=== PATIENT | male | born 1955 | race Caucasian/White ===

== ENCOUNTER 2023-06-28 07:51 | Outpatient (CLI) | payer OTHER, SELFPAY ==
--- NOTE | 2023-06-29 06:38 | WPDPFTINT ---
PFT Procedure Performed PFT Procedure Performed Plethysmography (Lung Vol) Diffusing Cap (DLCO) Flow Vol Loop Spirometry w/o Bronchodil PFT Interpretation This is a pulmonary function test with spirometry, plethysmography and diffusing capacity. The test was performed and results interpreted in accordance with the 2019 and 2005 ATS/ERS Task Force guidelines respectively using the Global Lung Function Initiative-2012 reference equations. Patient demonstrated good effort and cooperation. Reproducibility criteria were met. The quality of the spirometry maneuver was Grade A. Findings: Spirometry: The contour the inspiratory and expiratory flow tracing are normal. The FVC is 4.00 L, 106% predicted. The FEV1 is 2.92 L, 101% predicted. The FEV1: FVC ratio 73%. Plethysmography: The total lung capacity is 6.08 L, 97% predicted. The functional residual capacity is 2.59 L, 80% predicted. The residual volume is 1.85 L, 84% predicted. Diffusing capacity: The diffusing capacity unadjusted for hemoglobin and carboxyhemoglobin is 19.6, 79% predicted. The diffusing capacity adjusted for alveolar volume is 3.76, 89% predicted. Impression: The spirometry is normal without evidence of an obstructive abnormality. The lung volumes are normal. The diffusing capacity is normal. There are no prior studies for comparison
== END 2023-06-28 07:52 | disposition home or self-care (01) ==
LOC: ANHPFT 07:52
PROVIDERS: PCP Internal Medicine; Visit Provider Internal Medicine
DX: J44.9 Chronic obstructive pulmonary disease, unspecified (principal)
CPT/HCPCS: 94060; 94375; 94726; 94729

== ENCOUNTER 2024-05-21 12:32 | Outpatient (CLI) | payer OTHER, SELFPAY ==
--- NOTE | ~2024-05-21 | US_ITS ---
EXAMINATION: US renal BI DATE: 05/21/2024 13:45 INDICATION: Chronic kidney disease stage IIIB. TECHNIQUE: Multiple ultrasound grayscale images of the kidneys were obtained. COMPARISON: None. FINDINGS: The right kidney measures 10.9 x 4.8 x 5.0 cm. The left kidney measures 11.1 x 6.1 x 5.3 cm. The kidn eys demonstrate normal parenchymal echogenicity. There are cysts in the kidneys measuring up to 1.8 c m on the right. There is no hydronephrosis. The bladder is normal. The prostate is moderately enlarge d. IMPRESSION: 1. Normal kidney sizes. No hydronephrosis. Reviewed, dictated and finalized at location A.
== END 2024-05-21 12:33 | disposition home or self-care (01) ==
LOC: ANHIMG 12:36
PROVIDERS: PCP Internal Medicine
DX: N18.32 Chronic kidney disease, stage 3b (principal)
CPT/HCPCS: 76775

== ENCOUNTER 2024-11-24 00:04 | Day surgery (SDC) | payer OTHER, SELFPAY ==
[2024-11-13 14:51] VITALS: BMI 29.8
--- NOTE | 2024-11-18 12:22 | PC.NURSE ---
Patient's , Sandra, called with some questions about Sami's colonoscopy for tomorrow. States he has a pacemaker/defibrilator that wasn't marked on chart. Sent CRMD form over to Dr. Manjit Schroeder. Called the office and they said they should be able to get that back to us today. Also spoke with anesthesia about pt's EF & health history. Okay to proceed. Called patient and made them aware that we are good to go for tomorrow.
--- OUTSIDE RECORDS SUMMARY | 2024-11-24 00:07 | XMS_ITS | Data Portability ---
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 Role Phone DEBORAH MOBLEY Primary Care Provider [phone] Assessment Encounter Date Assessment Date Assessment LastModified by Organization Details LastModified Time 10/26/2022 10/26/2022 Blood pressure u p a little bit has not taking his medication blood work been ordered 2 week follow-up eat better take medications medications as prescribed stress test if chest pain recurs ER [email or web address] Not available 10/26/2022 17:08:11 06/12/2023 06/12/2023 Blood work Target for A1c LDL blood pressure discussed Regular exercise Stay up-to-date on immunization Consult notes reviewed diagnosis assessment plan discussed. Follow-up in 4 month Heart catheterization nonobstructive disease Not available 06/15/2023 16:23:36 Plan of Treatment Reminders Order Date Submit Date Provider Last Modified By Organization Details Last Modified Time Details Appointments Procedure 15 2024 09:30A M Jossue Spann MD Not available Not available Not available Post-Op 15 2024 09:30A M LENARD Moreno Not available Not available Not available Lab PSA, total, serum or plasma 2022 023 [email or web address] [facility] (Lab), [address] [place], [address], 05/07/2024 18:37:49 CBC w/ auto diff 2022 023 [email or web address] [facility] (Lab), [address] [place], [address], 05/07/2024 18:37:49 lipid panel, serum [address] (Lab), [address] [place], [address], 05/07/2024 18:37:49 CMP, serum or plasma [address] (Lab), [address] [place], [address], 05/07/2024 18:37:49 glycohemo globin, total, blood [address] (Lab), [address] [place], [address], 05/07/2024 18:37:48 glycohemo globin, total, blood 2022 023 [facility] (Lab), [address] [place], [address], 10/30/2022 12:30:36 CMP, serum or plasma 2022 023 [facility] (Lab), [address] [place], [address], 10/30/2022 12:30:36 lipid panel, serum 2022 023 [facility] (Lab), [address] [place], [address], 10/30/2022 12:30:36 CBC w/ auto diff 2022 023 [facility] (Lab), [address] [place], [address], 10/30/2022 12:30:36 Referral None recorded. Procedures cerumen removal (PROC) 2024 025 [facility] (One Call Scheduling), [address] [place], [address], 11/19/2024 05:32:31 cerumen removal (PROC) 2023 024 [email or web address] [facility] (One Call Scheduling), [address] [place], [address], 02/17/2024 11:58:39 lexiscan cardiolit e stress test (PROC) - approved [id number] 10/26/2022 -2022 023 [facility] (One Call Scheduling), [address] [place], [address], 12/19/2022 09:12:03 Surgeries septoplas ty (SURG) 2024 025 [email or web address] Not available 10/23/2024 09:30:02 Imaging PFT, complete 2022 023 [facility] (Cardiology & Emg), [address], [place], [address], 06/29/2023 07:43:36 XR, chest, 2 view 2022 023 [facility] (One Call Scheduling), [address] [place], [address], 11/01/2022 09:47:37 electroca rdiogram 2022 023 [facility] [address] [facility], [address], [place], [address], 10/26/2022 14:28:32 Medication Orders azelastin e 137 mcg (0.1 %) nasal spray 2023 024 [id number], [address] , [place], [place], [id number], 10/08/2023 14:29:14 Patient TargetsNo targets recorded. Patient InstructionsNo instructions recorded. Reason for Referral None Reported. Results Created Date Observation Date Name Description Value Unit Range Abnormal Flag Note LastModifiedBy Organization Detail LastModifiedTime 10/27/19 [facility] rocky diogr am No observ ation record ed. cyahl [facility] Internal Med [facility] [address] [facility] [address], [place], [address], 10/26/2022 12:35:01 10/27/19 23 10/26/2022 elect [facility] dio am No observ ation record ed. BARCODE [facility] Internal Med [facility] [address] [facility] [address], [place], [address], 10/26/2022 15:18:43 11/02/19 23 11/01/2022 XR, chest , 2 view [facility] [address] [facility] [place] [address] Patien t Name: LETICIA LEWIS L Access ion #: [id number] Sex: M : 1954 8 Locati on: RAD Attend ing Physic antonia: PAT MOBLEY Orderi Physic antonia: PAT MOBLEY Exam Date: 023 7:17 AM Exam Name: XR CHEST 2V Admitt ing Diagno sis(es ): RADIOL OGY REPORT - FINAL EXAM: XR CHEST 2V HISTOR Y: CHEST PAIN 67-yea r-old male with chest pain, former smoker . COMPAR ANABEL: Chest x-ray dated 2020. TECHNI QUE: 2 views of the chest were perfor med. FINDIN GS: No pneumo thorax , pulmon arti edema, or consol idativ e infilt rates. The heart is mildly enlarg ed. No fractu res are identi fied about the bony thorax . There is mild to modera te thorac ic degene rative disc diseas e. IMPRES RENAY: Cardio megaly withou t eviden ce of acute intrat horaci c proces s. Page 1 of 2 [facility] Patiparth t Name: LETICIA LEWIS Access ion #: [id number] Sex: M : 1954 8 Exam Date: 7:17 AM Exam Name: XR CHEST 2V Admitt ing Diagno sis(es ): Create d and electr onical ly signed by: Victor M hamilton MD Signed Date: 8:45 AM (CT) Dictat ed by: Victor M hamilton MD DD: 8:45 AM (CT) DT: 8:45 AM (CT) Page [address] (Imaging) [address] [place], [address], 06/01/2023 21:50:35 11/22/19 23 11/21/2022 deshawn can cardi olite stres s test (PROC ) [facility] [address] [place] [address] [phone] Patiparth t Name: LETICIA LEWIS Access ion #: [id number] Sex: M : 1954 5 Locati on: RAD Attend ing Physic antonia: PAT MOBLEY Orderi Physic antonia: PAT MOBLEY Exam Date: 11/22/19 23 7:12 AM Exam Name: NM MYOCAR D SPECT MULT Admitt ing Diagno sis(es ): RADIOL OGY REPORT - FINAL EXAM: NM MYOCAR D SPECT MULT HISTOR Y: CHEST PAIN diabet es COMPAR ANABEL: None. TECHNI QUE: REST STUDY: 10.0 mCi of Techne tium 99m-Te trofos min. Lexisc an STUDY: 25.0 mCi of Techne tium 99m-Te trofos min. The patien t was stress ed pharma cologi ravindra utiliz ing 0.4 mg Lexisc an. Cardia c-gate d tomogr aphic images of the heart were obtain ed in the short and long axis projec tions. Images were obtain ed at rest and carolinei tala follow ing admini strati on of Lexisc an. Lexisc an and rest images were perfor med on the same day. Page 1 of 2 [facility] Patien t Name: LETICIA LEWIS L Access ion #: [id number] Sex: M : 1954 5 Exam Date: 11/22/19 7:12 AM Exam Name: NM MYOCAR D SPECT MULT Admitt ing Diagno sis(es ): FINDIN GS: There is a nontra nsmura l periph eral perfus ion defect infero latera l aspect of the left ventri niles on the Lexisc an images . The rest images are within normal limits . Wall motion is normal . Left ventri cular ejecti on fracti on is 60%. IMPRES RENAY: 1. Artifa ct versus nontra nsmura l Lexisc an induce d ischem ia of the inferi or segmen t of the left ventri niles. 2. This report will be faxed and teleph oned to Dr. Itz edgar. 1143 hours, 2022. Create d and electr onical ly signed by: Rob green MD Signed Date: 11/22/19 11:44 AM (CT) Dictat ed by: Rob green MD (CT) (CT) Page 2 of 2 [facility] (Imaging) [address] [place], [address], 12/19/2022 09:12:03 06/29/2006/28/2023 PFT, compl ete No observ ation record ed. [facility] [address] [facility] [address], [place], [address], 07/24/2023 11:45:11 07/01/2006/28/2023 PFT, compl ete No observ ation record ed. [email or web address] [facility] [address], [place], [address], 07/24/2023 11:45:11 07/03/2007/03/2023 US, echoc ardio gram No observ ation record ed. cyahl [facility] [address], [place], [address], 07/15/2023 14:50:50 07/29/2006/28/2023 PFT, compl ete No observ ation record ed. [facility] [address] [address], [place], [address], 08/24/2023 10:56:48 Result Notes None recorded. Problems Name Problem SNOMED Code Status Onset Date Resolution Date Notes Provider Name and Address Organization Details Recorded Time Chest pain 51312774 Active 2022 Not Available [employer] 3 08:18:36 Thallium stress test abnormal 425888155 Active 2022 Not Available [facility] 3 08:18:36 Impacted cerumen of bilateral ears 39018068695 75490 Active 2023 Jossue Spann MD [address] [facility], [place] [address], [place], [address] , [employer] 4 14:28:45 Allergic rhinitis 86127017 Active 2023 Jossue Spann MD [address] [facility], [facility] [address], [place], [address] , [employer] 4 14:28:55 Deviated nasal septum 539066899 Active 2024 LENARD Moreno [address] [facility], [facility] [address], [place], [address] , [employer] 5 11:15:49 Tobacco user 946811859 Active Not Available [facility] 3 08:18:36 Chronic obstructi ve pulmonary disease 18778159 Active Not Available [facility] 3 08:18:36 Respirato ry symptom 397518946 Active Not Available [facility] 3 08:18:36 On examinati on - hoarsenes s Completed Not Available [facility] 3 04:50:23 Prostate specific antigen outside reference range 861879022 Active Not Available [facility] 3 08:18:36 Blood glucose outside reference range 713592511 Active Not Available [facility] 3 08:18:36 Malaise and fatigue 141681936 Completed Not Available [facility] 3 04:50:23 Chest pain 96876244 Completed LEIGHANN [place] [facility] 3 12:35:41 Type 2 diabetes mellitus without complicat ion 410663846 Active 2021 Not Available [facility] 3 08:18:36 Dyslipide alexis 652520735 Active Not Available [facility] 3 08:18:36 Hypokalem ia 57555119 Completed Not Available [facility] 3 04:50:24 Anxiety 81022865 Active 2019 Not Available [facility] 3 08:18:36 Cough 15606574 Completed Not Available [facility] 3 04:50:24 Hoarse 27003827 Completed Not Available [facility] 3 04:50:24 Essential hypertens ion 13179179 Active Not Available [facility] 3 08:18:36 Snoring 55217877 Active Not Available [facility] 3 08:18:36 Sleep apnea 92969927 Active Not Available [facility] 3 08:18:36 Problem Notes None recorded. Procedures Surgical History Date Name Laterality Status Provider Name and Address Organization Details Recorded Time Vasectomy completed Not Available [facility] 0 10/17/2022 04:42:01 Imaging Results Imaging Date Name Status LastModified by Organization Details LastModified Time 10/26/2022 electrocardiogram completed [facility] Internal [facility] [address] [facility], [place], [address], 10/26/2022 12:35:01 10/26/2022 electrocardiogram completed [facility] Internal Med [address] [facility], [place], [address], 10/26/2022 15:18:43 11/01/2022 XR, chest, [address] (Imaging) [address] [place], [address], 06/01/2023 21:50:35 11/21/2022 lexiscan cardiolite stress test (PROC) completed [facility] (Imaging) [address] [place], [address], 12/19/2022 09:12:03 06/28/2023 PFT, complete completed [facility], [place], [address], 07/24/2023 11:45:11 06/28/2023 PFT, [facility] [facility] [address], [place], [address], 07/24/2023 11:45:11 07/03/2023 US, echocardiogram completed [facility] [address], [place], [address], 07/15/2023 14:50:50 06/28/2023 PFT, complete completed [place] [address] [facility] [address], [address], 08/24/2023 10:56:48 Procedure Notes None recorded. Medical Equipment None Reported. Allergies No known drug allergies Medications Name Sig Start Date Stop Date Status Note LastModified by Organization Details LastModified Time fluoxetin e 40 mg capsule TAKE 1 CAPSULE BY MOUTH EVERY DAY active Not Available Not Available No t Available amoxicill in 500 mg capsule TAKE ONE CAPSULE BY MOUTH THREE TIMES DAILY UNTIL ALL TAKEN 10/22 completed Not Available Not Available Not Available metformin 500 mg tablet TAKE 1 TABLET BY MOUTH EVERY DAY 10/22 completed Not Available Not Available Not Available clonidine HCl 0.1 mg tablet TAKE 1 TABLET BY MOUTH TWICE DAILY active Not Available Not Available No t Available ofloxacin 0.3 % eye drops 09/20 completed Not Available Not Available Not Available prednison e 20 mg tablet TAKE 2 TABLETS BY MOUTH EVERY DAY FOR 5 DAYS 10/22 completed Not Available Not Available Not Available Diflucan 150 mg tablet Take 1 tablet every day by oral route for 7 days. active Not Available Not Available No t Available acetamino phen 300 mg-codein e 30 mg tablet TAKE 1 TABLET BY MOUTH EVERY 6 HOURS NEEDED FOR PAIN active Not Available Not Available No t Available chlorthal idone 25 mg tablet TAKE 1 TABLET BY MOUTH DAILY active Not Available Not Available No t Available amoxicill in 500 mg tablet TAKE 1 TABLET BY MOUTH THREE TIMES DAILY UNTIL GONE 10/22 completed Not Available Not Available Not Available ketorolac 0.5 % eye drops 09/20 completed Not Available Not Available Not Available cefadroxi l 500 mg capsule TK 1 C PO BID 10/24 completed Not Available Not Available Not Available amiloride 5 mg tablet TAKE 1 TABLET BY MOUTH EVERY DAY active Not Available Not Available No t Available potassium chloride ER 20 mEq tablet,ex tended release(p art/cryst ) TAKE 1 TABLET BY MOUTH TWICE DAILY 10/22 completed Not Available Not Available Not Available prednisol one acetate 1 % eye drops,naga pension 09/20 completed Not Available Not Available Not Available Diflucan 100 mg tablet Take 1 tablet every day by oral route. active Not Available Not Available No t Available tamsulosi n 0.4 mg capsule active NOT CURRENTL Y TAKING MD HASN'T REFILLED Not Available Not Available Not Available fluoxetin e 20 mg tablet Take 1 tablet every day by oral route. 05/20 completed Not Available Not Available Not Available losartan 25 mg tablet TAKE 1 TABLET BY MOUTH EVERY DAY 06/12 completed Not Available Not Available Not Available Advair Diskus 250 mcg-50 mcg/dose powder for inhalatio n INHALE 1 PUFF BY MOUTH TWICE DAILY 08/17 completed Not Available Not Available Not Available azelastin e 137 mcg (0.1 %) nasal spray USE 2 SPRAYS IN EACH NOSTRIL TWICE DAILY active Not Available Not Available No t Available Aspir-81 mg tablet,de layed release Take 1 tablet every day by oral route. 2019 active Not Available Not Available Not Avai lable albuterol sulfate HFA 90 mcg/actua tion aerosol inhaler INHALE 2 PUFFS BY MOUTH EVERY 4 HOURS active Not Available Not Available No t Available fluticaso ne propionat e 50 mcg/actua tion nasal spray,naga pension SHAKE LIQUID AND USE 2 SPRAYS IN EACH NOSTRIL EVERY DAY active Not Available Not Available No t Available finasteri de 5 mg tablet TK 1 T PO D 07/11 completed Not Available Not Available Not Available amoxicill in 875 mg-potass ium clavulana te 125 mg tablet TAKE 1 TABLET BY MOUTH TWICE DAILY UNTIL ALL TAKEN 10/22 completed Not Available Not Available Not Available amlodipin e 10 mg-benaze pril 20 mg capsule TAKE 1 CAPSULE BY MOUTH EVERY DAY 06/12 completed Not Available Not Available Not Available OraMagicR x mouthwash 15mL by mouth, swish for 1 minute then spit every 4-6 hours for 7 days 10/27 completed Not Available Not Available Not Available moxifloxa shaka 0.5 % eye drops 09/20 completed Not Available Not Available Not Available rosuvasta tin 20 mg tablet TAKE 1 TABLET BY MOUTH DAILY active Not Available Not Available No t Available amlodipin e 10 mg-atorva statin 20 mg tablet Take 1 tablet every day by oral route. active Not Available Not Available No t Available Spiriva with [employer] r 18 mcg and inhalatio n capsules INHALE ONE CAPSULE BY MOUTH VIA HANDIHAL ER EVERY DAY 08/17 completed Not Available Not Available Not Available PreserVis ion AREDS 2017 active Not Available Not Available Not Avai lable BD Ultra-Fin e Short Pen Needle 31 gauge x 5/16 USE TO INJECT OZEMPIC WEEKLY DIRECTED 07/18 completed Not Available Not Available Not Available Symbicort 80 mcg-4.5 mcg/actua tion HFA aerosol inhaler INHALE 2 PUFFS BY MOUTH TWICE DAILY-PL EASE CALL FOR APPOINTM ENT 09/23 completed Not Available Not Available Not Available Veramyst 27.5 mcg/actua tion nasal spray,naga pension 06/22 completed Not Available Not Available Not Available amlodipin e 5 mg-olmesa rtan 40 mg tablet TAKE 1 TABLET BY MOUTH EVERY DAY active Not Available Not Available No t Available Durezol 0.05 % eye drops 09/20 completed Not Available Not Available Not Available Dulera 100 mcg-5 mcg/actua tion HFA aerosol inhaler INHALE 2 PUFFS BY MOUTH TWICE DAILY active Not Available Not Available No t Available OneTouch Verio test strips USE 1 STRIP TO TEST BLOOD SUGAR DAILY active Not Available Not Available No t Available dapaglifl ozin propanedi ol 10 mg tablet TAKE 1 TABLET BY MOUTH 1 TIME EACH DAY IN THE MORNING active Not Available Not Available No t Available potassium chloride ER 20 mEq tablet,ex tended release TAKE 1 TABLET BY MOUTH TWICE DAILY 10/22 completed Not Available Not Available Not Available Trulicity 0.75 mg/0.5 mL subcutane ous pen injector Inject 0.75 mg every week by subcutan eous route. 07/11 completed Not Available Not Available Not Available ProAir RespiClic k 90 mcg/actua tion breath activated Inhale 2 puffs every 4 hours by inhalati on route as needed. 09/23 completed Not Available Not Available Not Available Trelegy Ellipta 100 mcg-62.5 mcg-25 mcg powder for inhalatio n INHALE 1 PUFF BY MOUTH EVERY DAY active Not Available Not Available No t Available Ozempic 0.25 mg or 0.5 mg (2 mg/1.5 mL) subcutane ous pen injector inject 0.25mg under the skin weekly for 4wks then 0.5mg weekly active Not Available Not Available No t Available OneTouch Delica Plus Lancet 33 gauge USE TO TEST BLOOD GLUCOSE TWICE DAILY 07/18 completed Not Available Not Available Not Available OneTouch Verio Reflect Meter TEST TWICE DAILY active Not Available Not Available No t Available Vitals Date Recorded Body height Body mass index (BMI) Body weight Body temperature Heart rate Systolic blood pressure Diastolic blood pressure Provider Name and Address Organization Details Last Updated DateTime 3 162.56 cm 32.4 kg/m2 31573.9 6 g 97.5 [degF] 78 /min 160 mm[Hg] 98 mm[Hg] Shae Valderrama Ana Cristina [facility] [employer] [facility] 3 12:07:16 Date Recorded Body height Body mass index (BMI) Body weight Body temperature Heart rate Systolic blood pressure Diastolic blood pressure Provider Name and Address Organization Details Last Updated DateTime 3 162.56 cm 30.2 kg/m2 61149.2 6 g 98.7 [degF] 68 /min 120 mm[Hg] 82 mm[Hg] LEIGHANN Ventura [facility] [employer] [facility] 3 11:45:07 Date Recorded Body height Body mass index (BMI) Body weight Body temperature Provider Name and Address Organization Details Last Updated DateTime 10/08/2023 162.56 cm 29.7 kg/m2 07254.2 g 97.7 [degF] Evita Ji RN [facility] [employer] [facility] 10/08/2023 14:05:54 Date Recorded Body height Body mass index (BMI) Body weight Body temperature Body height Body mass index (BMI) Body weight Body temperature Provider Name and Address Organization Details Last Updated DateTime 5 162.56 cm 29.7 kg/m2 35855.4 8 g 97.5 [degF] 162.56 cm 29.7 kg/m2 44065.4 8 g 97.5 [degF] Evita Ji RN [facility] [employer] [facility] 5 12:27:54 Social History Question Answer Notes LastModified by Organization Details LastModified Time Tobacco Smoking Status Former Smoker quit 2013 ELSI Beaulieu [facility] [employer] [facility] 10/08/2023 13:58:09 Do You Have An Advance Directive? No [id number] Information not available 10/17/2022 What Is Your Level Of Alcohol Consumption? Occasional [id number] Information not available 10/17/2022 Are You Blind Or Do You Have Difficulty Seeing? No Information not available 10/08/2023 What Is Your Level Of Caffeine Consumption? Heavy [id number] Information not available 10/17/2022 How Much Tobacco Do You Chew? None [id number] Information not available 10/17/2022 In The 14 Days Before Symptom Onset, Have You Had Close Contact With A Laboratory-confi rmed COVID-19 While That Case Was Ill? No Information not available 10/08/2023 In The 14 Days Before Symptom Onset, Have You Had Close Contact With A Person Who Is Under Investigation For COVID-19 While That Person Was Ill? No Information not available 10/08/2023 Are You Deaf Or Do You Have Serious Difficulty Hearing? No Information not available 10/08/2023 What Type Of Diet Are You Following? [id number] [id number] Information not available 10/17/2022 Which Illicit Or Recreational Drugs Have You Used? None Information not available 10/08/2023 Do You Or Have You Ever Used E-cigarettes Or Vape? Never Used Electronic Cigarettes Information not available 10/08/2023 What Is The Highest Grade Or Level Of School You Have Completed Or The Highest Degree You Have Received? 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 No Information not available 10/08/2023 What Is The Fluoride Status Of Your Home? Unknown Information not available 10/08/2023 When Did You Quit Smoking? 6-10yearssincelastc igarette Information not available 10/08/2023 Are There Any Guns Present In Your Home? No Information not available 10/08/2023 Do You Use Insect Repellent Routinely? No Information not available 10/08/2023 Where Do You Live? 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 No Information not available 10/08/2023 What Was The Date Of Your Most Recent Tobacco Screening? 06/12/2023 Information not available 10/08/2023 Have You Ever Been Counseled For Unhealthy Alcohol Use? No Information not available 10/08/2023 Do You Have Any Pets? Yes Information not available 10/08/2023 What Is Your Relationship Status? [id number] Information not available 10/17/2022 Do You Use Your Seat Belt Or Car Seat Routinely? Yes Information not available 10/08/2023 Do You Have Smoke And Carbon Monoxide Detectors In Your Home? Yes Information not available 10/08/2023 At What Age Did You Start Smoking Tobacco? 27 Information not available 10/08/2023 Are You Passively Exposed To Smoke? No Information not available 10/08/2023 Do You Or Have You Ever Used Smokeless Tobacco? Never Used Smokeless Tobacco [id number] Information not available 10/17/2022 Are There Any Smokers In Your House? No Information not available 10/08/2023 How Much Tobacco Do You Smoke? No Was 1ppw [id number] Information not available 10/17/2022 What Types Of Sporting Activities Do You Participate In? None Information not available 10/08/2023 Do You Feel Stressed (tense, Restless, Nervous, Or Anxious, Or Unable To Sleep At Night)? [id number] Information not available 10/08/2023 Do You Use Any Illicit Or Recreational Drugs? No Information not available 10/08/2023 Do You Use Sunscreen Routinely? No Information not available 10/08/2023 Has Tobacco Cessation Counseling Been Provided? No Information not available 10/08/2023 Have You Recently Traveled Abroad? No Information not available 10/08/2023 Do You Have Any Dietary Restrictions? No Information not available 10/08/2023 Do You Or Have You Ever Used Any Other Forms Of Tobacco Or Nicotine? No Information not available 10/08/2023 Sex: Male Functional Status Question Answer Note LastModified by Organizat ion Details LastModified Time Do you have difficulty walking or climbing stairs? Yes due to COPD Information not available 10/08/2023 Do you have transportation difficulties? No Information not available 10/08/2023 Are you able to walk? YESWOREST Information not available 10/08/2023 Do you have difficulty doing errands alone? No Information not available 10/08/2023 Are you able to care for yourself? Yes Information n ot available 10/08/2023 Do you have difficulty dressing or bathing? No Information not available 10/08/2023 What is your exercise level? None [id number] Information not available 10/17/2022 Mental Status Question Answer Note LastModified by Organization D etails LastModified Time Do you have difficulty concentrating, remembering or making decisions? Yes Information no t available 10/08/2023 Family History Relationship Description Onset Age of this Age Resolved Age Notes LastModified by Organization Details LastModified Time Mother History of respiratory disease [id number] Not available 10/17/2022 04:42:02 Father Malignant tumor of lung [id number] Not available 10/17/2022 04:42:02 Notes:YOUNGER BROTHER WAS ES SENTIALLY DEAF Medical History Condition Response NERVE DISEASE N BLINDNESS N RHEUMATIC FEVER N KIDNEY STONES N BLADDER PROBLEMS N MRSA N OTHER # 1 Y POLIO N LUNG DISEASE/DISORDER N HISTORY OF DRUG ABUSE N RADIATION / CHEMOTHERAPY N COPD Y Other # 2 N BLOOD DISEASES N EAR OR HEARING PROBLEMS N MUMPS N SHINGLES N BOWEL PROBLEMS N DEPRESSION (INCLUDING POST ) N STROKE/TIA N ULCERS N BENIGN PROSTATIC HYPERPLASIA N MEASLES N MYOCARDIAL INFARCTION N OBESITY N GERD/NAUSEA N ANEURYSM N URINARY/BLADDER/KIDNEY PROBLEMS N CORONARY ARTERY DISEASE (CAD) N ADDICTION CONCERNS N Impotence N ENDOMETRIOSIS N USE OF BLOOD THINNERS N SKIN PROBLEMS N GASTROINTESTINAL DISORDER N PARATHYROID DISEASE N PERIPHERAL VASCULAR DISEASE N MUSCLE,JOINT OR BONE PROBLEMS N GASTROINTESTINAL BLEEDING N BLOOD CLOTS N ASTHMA Y CATARACTS N ERECTILE DYSFUNCTION N VARICOSITIES N GI PROBLEMS N CHF N Low Testosterone N INFERTILITY N AIDS/HIV N CHEMOTHERAPY / RADIATION N LIVER DISEASE N MALE HYPOGONADISM N HYPERTENSION Y Deficiency N TOURETTE'S N ANXIETY DISORDER Y BLOOD TRANSFUSION N ANEMIA/BLOOD DISORDER N CHRONIC EAR INFECTIONS N BRONCHITIS N TUBERCULOSIS N GLAUCOMA N FOOT PROBLEM N DIVERTICULITIS N SLEEP APNEA Y CHICKENPOX N ALLERGIES/HAYFEVER N INFECTIOUS DISEASE N PROSTATE Y HEART ARRHYTHMIA N INSOMNIA N HIGH CHOLESTEROL / HYPERLIPIDEMIA Y EYE PROBLEMS N HYPERTHYROIDISM N EDEMA N CHRONIC PAIN SYNDROME N HYPOTHYROIDISM N CONSTIPATION N CAROTID BLOCKAGE N BACK / NECK PROBLEMS N HAVE YOU BEEN HOSPITALIZED OR SEEN IN [facility] IN THE PAST YEAR ? N ATHEROSCLEROSIS N BREAST PROBLEMS N DIALYSIS N ECZEMA N HISTORY WITH COMPLICATIONS WITH ANESTHES IA ? N OSTEOPOROSIS N ARTHRITIS N APPENDICITIS N DIABETES, TYPE N BAD TEETH N ENT N HEARTBURN / REFLUX N AUTISM SPECTRUM DISORDER (ASD) N HEPATITIS / LIVER DISEASE N GOUT N SLEEP DISORDER N ALZHEIMER'S DISEASE N Brain Problems N DEMENTIA N HERPES N SEIZURES/EPILEPSY N HEADACHES/MIGRAINES N VASCULAR DISEASE N PACEMAKER N Blood Disorder N DIZZINESS N HEART DISEASE/HEART PROBLEMS N KIDNEY DISEASE N MULTIPLE SCLEROSIS N CANCER: SPECIFY N CARDIAC ARRHYTHMIA N ANESTHESIA COMPLICATIONS N ATRIAL FIBRILLATION N Gall Stones N PULMONARY EMBOLISM N AUTOIMMUNE DISEASE N Immunizations Vaccine Type Date Status Note Provider Nam e and Address Organization Details Recorded Time Influenza, split virus, trivalent, preservative 3 completed Not Available [facility] 01/17/2023 08:18:36 Influenza, split virus, trivalent, preservative 3 completed Not Available [facility] 01/17/2023 08:18:36 Influenza, high-dose, quadrivalent, PF 2 completed Not Available [facility] 01/17/2023 08:18:36 Influenza, high-dose, quadrivalent, PF 0 completed Not Available [facility] 01/17/2023 08:18:36 Influenza, high-dose, trivalent, PF 9 completed Not Available [facility] 01/17/2023 08:18:36 Influenza, split virus, quadrivalent, PF 8 completed Not Available [facility] 01/17/2023 08:18:36 Influenza, split virus, quadrivalent, PF 6 completed Not Available [facility] 01/17/2023 08:18:36 Influenza, split virus, quadrivalent, PF 8 completed Not Available [facility] 01/17/2023 08:18:36 Influenza, split virus, quadrivalent, PF 5 completed Not Available [facility] 01/17/2023 08:18:36 Influenza, split virus, trivalent, preservative 4 completed Not Available [facility] 01/17/2023 08:18:36 Influenza, high-dose, quadrivalent, PF 3 completed Deborah Mobley MD [address] [place] [address], [place] [address], [place], [address], [place] [facility] 06/15/2023 16:24:17 Past Encounters Encounter ID Performer Location Encounter Start Date Encounter Closed Date Diagnosis/Indication Diagnosis SNOMED-CT Code Diagnosis ICD10 Code Diagnosis Note [id number] [facility] [address] [address] 12/30/2020 00:00:00 01/01/2021 09:26:30 [id number] [facility] [address] [place] [address] [address] [address] 05/05/2021 00:00:00 05/06/2021 11:41:52 [id number] _ATHENA_M IGRATION_ DEFAULT_1 _1 , 08/16/2021 00:00:00 08/16/2021 10:31:32 [id number] _ATHENA_M IGRATION_ DEFAULT_1 _1 , 08/30/2021 00:00:00 08/30/2021 10:20:11 [id number] [facility] Internal Med [facility] [address] [place] [address] [place] [address] 10/27/2021 00:00:00 11/12/2021 22:07:07 [id number] [facility] [address] [place] [address] [address] [address] 04/25/2022 00:00:00 05/27/2022 18:06:16 [id number] [facility] [address] [place] [address] [address] [address] 07/11/2022 00:00:00 07/12/2022 13:15:59 [id number] [facility] [address] [place] [address] [place] [address] 07/18/2022 00:00:00 08/05/2022 16:26:55 [id number] [facility] [address] [place] [address] [address] [address] 08/01/2022 00:00:00 08/05/2022 12:09:53 [id number] Deborah Mobley MD [facility] Internal [facility] [place] [address] [place] [address] 10/26/2022 11:46:33 10/26/2022 13:08:36 Essential hypertension 26635703 I10 Chest pain 12033732 R07. 9 Type 2 jaydon betes mellitus without complication 371032413 E11.9 Anxiety 04487203 F41.9 Dyslipidemia 977281271 E 78.5 [id number] Deborah Mobley MD [facility] [place] [address] [place] [address] 06/12/2023 11:21:26 06/12/2023 12:25:33 Type 2 diabetes mellitus without complication 087053759 E11.9 Essential hypertension 00325805 I10 Screening for malignant neoplasm of prostate 570870543 Z12.5 Chronic ob structive pulmonary disease 39919510 J44.9 Administra tion of influenza vaccine 11590504 Z23 [id number] Jossue Spann MD [facility] [place] [address] [place] [address] 10/08/2023 13:56:19 10/08/2023 16:13:18 Impacted cerumen of bilateral ears [id number] 810755 H61.23 Allergic rhinitis 807729 04 J30.9 [id number] LENARD Moreno [facility] [place] [address] [place] [address] 10/22/2024 10:44:03 10/22/2024 11:18:48 Deviated nasal septum 072975727 J34.[address] Spann for a septoplast y consultati on Impacted c erumen of bilateral ears [id number] 993480 H61.23 cerumen impaction successful ly removed with irrigation [id number] Jossue Spann MD [facility] [place] [address] [place] [address] 10/22/2024 12:08:18 10/23/2024 08:55:00 Deviated nasal septum 119109803 J34.2 Health Concerns Section Related Observation LastModified by Organization Detai ls LastModified Time None Recorded Concern Status LastModified by Organization Details LastModified Time None Recorded Advance Directives Directive N: Payers Encounter Date Sequence Insurance Name Policy Number Policy Walton Covered Member ID Walton Member ID Guarantor Name 10/26/2022 1 [employer] 680 Sami L Borror [id number] Sami L Borror 06/12/2023 1 [employer] 680 Sami L Borror [id number] Sami L Borror 10/08/2023 1 [employer] 680 Sami L Borror [id number] Sami L Borror 10/22/2024 1 [employer] 680 Sami L Borror [id number] Sami L Borror 10/22/2024 1 [employer] 680 Sami L Borror [id number] Sami L Borror Notes Date Note Type Note Provider Name and Address Organization Details Recorded Time 10/26/2022 text/html 1. Hypertension no headache no dizziness2. Been under lot of stress in family3. Diabetes needs A1c diet been poor4. Chest pain left-sided 1-2 minutes been going on for 3 weeks with no change in character intensity or frequency5. Dyslipidemia diet has been poor Deborah Mobley MD [address], [place], [place], [address], [facility] [facility] 10/26/2022 17:08:33 06/12/2023 text/html COPD stable need s PFTs. Hypertension no headache no dizziness diabetes no polyphagia no polydipsia dyslipidemia does try to follow a low-fat Deborah Mobley MD [address], [address], [place], [address], [facility] 06/15/2023 16:24:20 10/08/2023 text/html Cerumen and nasa l congestion Jossue Spann MD [address], [address], [place], [address], [facility] 10/08/2023 14:29:42 10/22/2024 text/html This patient has a past medical history significant for type 2 diabetes, dyslipidemia, COPD, anxiety, HTN, allergic rhinitis, sleep apnea, and cerumen impaction who presents to the office for a 1 year follow-up for cerumen removal. Reports approximately 1 month ago he developed difficulty hearing from his left ear. Denies use of any [id number] ear wax removal kit. Denies any otalgia. He also reports a history with a deviated septum at his last visit with Dr. Spann. He reports difficulty breathing out of his left nostril. This has been present for many years. He states that with his COPD history it is becoming increasingly difficult to be able to blow his nose and breathe properly through his nasal passages. He is interested in discussing a septoplasty. LENARD Moreno [address], [place] [address], [place], [address], [employer] [facility] [employer] 10/22/2024 11:16:59 10/22/2024 text/html this patient was found to have septal deviation which interferes with his sleep and daily breathing Jossue Spann MD [address], [place], [address], [employer] 10/22/2024 12:59:19
--- OUTSIDE RECORDS SUMMARY | 2024-11-24 00:07 | XMS_ITS | CONTINUITY OF CARE DOCUMENT ---
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 Name Role Phone Abdiaziz Arias MD Unavailable DEBORAH KIRK MD Unavailable [phone] DEBORAH KIRK MD Unavailable PROBLEMS Condition Status Date Provider Notes Cardiology examination active Abdiaziz Arias MD COPD active Abdiaziz Arias MD HTN essential active Abdiaziz Arias MD Diabetes mellitus active Abdiaziz Arias MD Hyperlipidemia active Abdiaziz Arias MD Abnormal stress test active Abdiaziz Arias MD Chest pain active Abdiaziz Arias MD Shortness of breath active Abdiaziz Arias MD SLEEP APNEA active Abdiaziz Arias MD HFpEF active Abdiaziz Arias MD ENCOUNTERS Date Type Provider Location Encounter Diag nosis - In-person encounter Office Visit Abdiaziz Arias MD [facility] HFpEF - In-person encounter Office Visit Abdiaziz Arias MD [facility] - In-person encounter Office Visit Abdiaziz Arias MD [facility] - In-person encounter Office Visit Abdiaziz Arias MD [facility] - In-person encounter Office Visit Abdiaziz Arias MD [facility] Shortness of breathSLEEP APNEA - In-person encounter Office Visit Abdiaziz Arias MD [facility] - In-person encounter Office Visit Abdiaziz Arias MD [facility] Cardiology examinationCOPDHTN essentialDiabetes mellitusHyperlipidemiaAbnormal stress testChest pain VITAL SIGNS Date Observation Value Provider Body Mass Index (Ratio) 29.37 kg/m2 Homero Arias MD blood pressure, diastolic 95 mm[Hg] Anita [place] [facility] blood pressure, systolic 150 mm[Hg] Jessica [facility]oya [facility] saturation, oximetry 95 % Phuong jackie pulse rate 72 /min Phuong [facility] blood pressure, cuff size regular Anita washington [facility] weight E&M 182 [lb_av] Phuong [facility] height E&M 66 [in_i] Phuong [facility] Body Mass Index (Ratio) 29.08 kg/m2 Homero Arias MD blood pressure, diastolic 90 mm[Hg] Li [facility] blood pressure, systolic 148 mm[Hg] Ebony [facility] blood pressure, cuff size regular Hussain bitmaurizio Jordan blood pressure, diastolic 90 mm[Hg] Ta bitha Jordan blood pressure, systolic 148 mm[Hg] Tab itha Julian oxygen saturation, oximetry 98 % Lizbeth Jordan pulse rate 82 /min Lizbeth Jordan weight E&M 180.2 [lb_av] Lizbeth Jordan respiratory rate E&M 12 /min Lizbeth Jordan height E&M 66 [in_i] Lizbeth Julian Body Mass Index (Ratio) 28.08 kg/m2 Homero Arias MD blood pressure, cuff size regular Ja rret blood pressure, diastolic 90 mm[Hg] Ja rret blood pressure, systolic 144 mm[Hg] [facility] pulse rate 71 /min Ignacio oxygen saturation, oximetry 96 % respiratory rate E&M 16 /min weight E&M 174 [lb_av] Ignacio height E&M 66 [in_i] Ignacio y Body Mass Index (Ratio) 28.24 kg/m2 Homero Arias MD blood pressure, cuff size regular Ja rr blood pressure, diastolic 93 mm[Hg] Ja rr blood pressure, systolic 148 mm[Hg] [facility] pulse rate 73 /min Ignacio oxygen saturation, oximetry 96 % Ignacio respiratory rate E&M 12 /min Ignacio weight E&M 175 [lb_av] Ignacio height E&M 66 [in_i] Ignacio y Body Mass Index (Ratio) 29.53 kg/m2 Homero Arias MD blood pressure, cuff size regular Ja rr blood pressure, diastolic 91 mm[Hg] Ja rret blood pressure, systolic 161 mm[Hg] [facility] ret pulse rate 71 /min Ignacio y oxygen saturation, oximetry 96 % Ignacio respiratory rate E&M 12 /min Ignacio weight E&M 183 [lb_av] Ignacio y height E&M 66 [in_i] Ignacio y Body Mass Index (Ratio) 30.99 kg/m2 Homero Arias MD blood pressure, diastolic 97 mm[Hg] [facility] blood pressure, systolic 161 mm[Hg] Sta amanda [facility] oxygen saturation, oximetry 98 % Caridad Amador pulse rate 71 /min Caridadamanda Amador respiratory rate E&M 18 /min Caridad silver weight E&M 192 [lb_av] Caridad Amador height E&M 66 [in_i] Caridad Amador Body Mass Index (Ratio) 30.18 kg/m2 Homero Arias MD blood pressure, diastolic 102 mm[Hg] [facility] ac[facility] blood pressure, systolic 163 mm[Hg] Sta amanda Am[facility] oxygen saturation, oximetry 96 % Caridad Amador respiratory rate E&M 18 /min Caridad D adrianne pulse rate 84 /min Caridad Amador height E&M 66 [in_i] Caridadamanda Amador weight E&M 187 [lb_av] Caridad Amador ALLERGIES No Known Drug Allergies RESULTS Date Observation Value Provider Reference Range Interpretation Location NT-pro BNP 133 Link[facility] <125 [place] [facility] [address] [facility] [place] [address] Nicola Guillermo MD prothrombin time (patient) 10.8 s [facility] 9.0-11.5 Normal international normalized ratio (INR) 1.0 [facility] Normal basophils as percent of blood leukocytes 0.9 % [facility] Normal eosinophils as percent of blood leukocytes 6.6 % [facility] Normal monocyte count, blood 11.5 % [facility] Normal lymphocyte count, blood 13.2 % [facility] Normal neutrophils as percent of blood leukocytes 67.8 % [facility] Normal basophils, absolute, manual 73 cells/mcL [facility] 0-200 Normal eosinophils, absolute, manual 535 cells/mcL [facility] 15-500 High monocytes, absolute, manual 932 cells/mcL [facility] 200-950 Normal lymphocytes, absolute 1069 CELLS/UL Link[facility] 850-3900 Normal Absolute Neutrophil count 5492 cells/mcL [facility] 5580-3581 Normal mean platelet volume 9.3 fL [facility] 7.5-12.5 Normal platelet count 280 THOUSAND/UL [facility] 140-400 Normal red blood cell distribution width 14.2 % [facility] 11.0-15.0 Normal mean corpuscular hemoglobin concentration, RBC 33.5 G/DL [facility] 32.0-36.0 Normal mean corpuscular hemoglobin, RBC 28.8 pg [facility] 27.0-33.0 Normal mean corpuscular volume, RBC 85.9 fL [facility] 80.0-100.0 Normal hematocrit, blood 44.5 % [facility] 38.5-50.0 Normal hemoglobin electrophoresis, blood 14.9 [facility] 13.2-17.1 Normal erythrocyte (RBC) count 5.18 MILLION/UL [facility] 4.20-5.80 Normal leukocyte (white blood cells) count, blood 8.1 THOUSAND/UL [facility] 3.8-10.8 Normal calcium, serum 8.9 mg/dL [facility] 8.6-10.3 Normal carbon dioxide, venous blood 31 mmol/L [facility] 20-32 Normal chloride, serum 101 mmol/L [facility] 98-110 Normal potassium, serum 3.4 mmol/L [facility] 3.5-5.3 Low sodium, serum 142 mmol/L [facility] 135-146 Normal urea nitrogen/creatin ine ratio, serum NOT APPLICABLE (calc) [facility] 6-22 creatinine, serum 1.06 mg/dL [facility] 0.70-1.35 Normal urea nitrogen, blood 17 mg/dL [facility] 7-25 Normal blood glucose, random 152 mg/dL [facility] 65-99 High cholesterol, non-HDL, total 132 MG/DL (CALC) LinkLogic <130 High cholesterol/HDL ratio, serum, percent 3.8 (calc) [facility]ic <5.0 Normal LDL cholesterol, serum 93 MG/DL (CALC) [facility] Normal triglyceride, serum, fasting 273 mg/dL [facility]ic <150 High HDL cholesterol, serum 47 mg/dL [facility] > OR = 40 Normal cholesterol, serum 179 mg/dL [facility] <200 Normal HISTORY OF MEDICATION USE Medication Status Instructions Dates Provider Indications Com ments amiloride 5 mg tablet active TAKE 1 TABLET BY MOUTH EVERY DAY Cece Whittaker RN amiloride 5 mg tablet completed Take 1 tablet by mouth once a day - Cece Whittaker RN amlodipine-olmesar pizarro 5-40 mg tablet active TAKE 1 TABLET BY MOUTH EVERY DAY Adrienne Franco chlorthalidone 25 mg tablet active TAKE 1 TABLET BY MOUTH DAILY ret rosuvastatin 20 mg tablet active TAKE 1 TABLET BY MOUTH DAILY Caridad Amador clonidine HCl 0.1 mg tablet active TAKE 1 TABLET BY MOUTH TWICE DAILY Caridad Amador amlodipine-benazep ril 10-20 mg capsule completed TAKE 1 CAPSULE BY MOUTH EVERY DAY - Abdiaziz Arias MD albuterol sulfate 90 mcg/actuation HFA aerosol inhaler active INHALE 2 PUFFS BY MOUTH EVERY 4 HOURS NEEDED Caridad Amador fluticasone propionate 50 mcg/actuation spray,suspension active SHAKE LIQUID AND USE 2 SPRAYS IN EACH NOSTRIL EVERY DAY Caridad Amador potassium chloride 20 mEq tablet,ER particles/crystals active TAKE 1 TABLET BY MOUTH TWICE DAILY Caridad Amador losartan 25 mg tablet completed TAKE 1 TABLET BY MOUTH EVERY DAY - Abdiaziz Arias MD metformin 500 mg tablet active TAKE 1 TABLET BY MOUTH EVERY DAY Caridad Amador fluoxetine 40 mg capsule active TAKE 1 CAPSULE BY MOUTH EVERY DAY Caridad Amador OneTouch Verio test strips strip active TEST TWICE DAILY DIRECTED Caridad Amador Trelegy Ellipta 100-62.5-25 mcg blister with device active INHALE 1 PUFF BY MOUTH EVERY DAY Caridad Amador SOCIAL HISTORY Date Observation Value Provider drug use no Abdiaziz Arias MD alcohol use no Abdiaziz Arias MD smoking, year quit 2013 Abdiaziz wilson MD cigarette use yes Abdiaziz Martinez smoking status Former smoker Abdiaziz Arias MD drug use no Abdiaziz Arias MD alcohol use no Abdiaziz Arisa MD smoking, year quit 2013 Abdiaziz wilson MD cigarette use yes Abdiaziz Martinez smoking status Former smoker Abdiaziz Arias MD drug use no Abdiaziz Arias MD alcohol use no Abdiaziz Arias MD smoking, year quit 2013 Abdiaziz wilson MD cigarette use yes Abdiaziz Arias M D smoking status Former smoker Abdiaziz Arias MD drug use no Cece Ventimig fady [facility] alcohol use no Cece Ventimig fady [facility] smoking status Former smoker Ceceyanique Galvan miglia [facility] social history reviewed E&M revi ewed - no changes required Abdiaziz Arias MD smoking status Former smoker Abdiaziz Arias MD social history reviewed E&M revi ewed - no changes required Abdiaziz Arias MD social history E&M Patient is a former smoker. Quit 2013 Smoking History: Ethel alanis is a former smoker. Abdiaziz Arias MD smoking, year quit 2013 Caridad Ventura is cigarette use yes Caridad Amador social history E&M Smoking History: Ethel alanis is a former smoker. Quit 2013 Abdiaziz Arias MD social history reviewed E&M revi ewed - no changes required Abdiaziz Arias MD smoking, year quit 2013 Caridad Ventura is cigarette use yes Caridad Amador smoking status Former smoker Caridad Amador INSURANCE PROVIDERS Payer name Policy type / Coverage type [employer] party ID [employer] Include Fitness insurance [employer] [id number] ADVANCE DIRECTIVES Name Date DISCUSSED - NO DECISION MADE TREATMENT PLAN Date Name Performer [id number],C, H is updated medication list for this problem includes: Amlodipine-olmesartan 5-40 Mg Tablet (Amlodipine-olmesartan) ..... Take 1 tablet by mouth every day Metformin 500 Mg Tablet (Metformin) ..... Take 1 tablet by mouth every day [facility] [id number],C,T he patient is using CPAP on a regular basis. The patient has been benefiting from therapy and should continue use. [facility] [id number],C, H is updated medication list for this problem includes: Rosuvastatin 20 Mg Tablet (Rosuvastatin) ..... Take 1 tablet by mouth daily [facility] [id number],C,c ontinues to persist m ay be r/t asthma P FT planned for next week w ill do echo to look for any LV dysfunction, diastolic dysfunction or valvular abnormalities w ill also do pBNP H is updated medication list for this problem includes: Amiloride 5 Mg Tablet (Amiloride) ..... Take 1 tablet by mouth once a day Amlodipine-olmesartan 5-40 Mg Tablet (Amlodipine-olmesartan) ..... Take 1 tablet by mouth every day Chlorthalidone 25 Mg Tablet (Chlorthalidone) ..... Take 1 tablet by mouth daily Cece Sanders [facility] [id number],C,B P elevated again today R eports well controlled at PCP visit last week H ave asked him to monitor at home G oal BP <130/80 W ill return in 3 mos or sooner if needed. Cece Sanders [facility] [id number],C,P atient does not feel like his CPAP is working correctly, will give him Dr. Smith's phone number Abdiaziz Arias MD [id number],C, B P today: 161/91 P rior BP: 161/97 (02/21/2023) Labs Reviewed: C reat: 1.06 (12/28/2022) C hol: 179 (12/28/2022) HDL: 47 (12/28/2022) LDL: 93 MG/DL (CALC) (12/28/2022) T (12/28/2022) Abdiaziz Arias MD [id number],C,Patient feels SOB Abdiaziz Arias MD [id number],B, Abdiaziz Arias MD [id number],C, B P today: 161/97 P rior BP: 163/102 (12/06/2022) Labs Reviewed: C reat: 1.06 (12/28/2022) C hol: 179 (12/28/2022) HDL: 47 (12/28/2022) LDL: 93 MG/DL (CALC) (12/28/2022) T (12/28/2022) The following medications were removed from the medication list: Losartan 25 Mg Tablet (Losartan) ..... Take 1 tablet by mouth every day Amlodipine-benazepril 10-20 Mg Capsule (Amlodipine-benazepril) ..... Take 1 capsule by mouth every day His updated medication list for this problem includes: Amlodipine-olmesartan 5-40 Mg Tablet (Amlodipine-olmesartan) ..... Take 1 tablet by mouth every day Chlorthalidone 25 Mg Tablet (Chlorthalidone) ..... Take 1 tablet by mouth daily Clonidine Hcl 0.1 Mg Tablet (Clonidine hcl) ..... Take 1 tablet by mouth twice daily Abdiaziz Arias MD [id number],C,a s in hpi h as minimal disease and should conitnue statin Abdiaziz Arias MD [id number],S, H is updated medication list for this problem includes: Albuterol Sulfate 90 Mcg/actuation Hfa Aerosol Inhaler (Albuterol sulfate) ..... Inhale 2 puffs by mouth every 4 hours as needed Trelegy Ellipta 100-62.5-25 Mcg Blister With Device ([id number]-bqjkwgpl) ..... Inhale 1 puff by mouth every day Abdiaziz Arias MD [id number],C, B P today: 163/102 His updated medication list for this problem includes: Clonidine Hcl 0.1 Mg Tablet (Clonidine hcl) ..... Take 1 tablet by mouth twice daily Amlodipine-benazepril 10-20 Mg Capsule (Amlodipine-benazepril) ..... Take 1 capsule by mouth every day Losartan 25 Mg Tablet (Losartan) ..... Take 1 tablet by mouth every day Abdiaziz Arias MD [id number],S, Abdiaziz Arias MD [id number],C,Have recommen ded a cardiac cath Abdiaziz Arias MD Cardiology:needs bet ter control e ncouraged home monitoring His updated medication list for this problem includes: Amlodipine-olmesartan 5-40 Mg Tablet (Amlodipine-olmesartan) ..... Take 1 tablet by mouth every day Amiloride 5 Mg Tablet (Amiloride) ..... Take 1 tablet by mouth every day Chlorthalidone 25 Mg Tablet (Chlorthalidone) ..... Take 1 tablet by mouth daily Clonidine Hcl 0.1 Mg Tablet (Clonidine hcl) ..... Take 1 tablet by mouth twice daily BP today: 150/95 P rior BP: 148/90 (04/13/2024) Labs Reviewed: C reat: 1.06 (12/28/2022) Chol: 179 (12/28/2022) HDL: 47 (12/28/2022) LDL: 93 MG/DL (CALC) (12/28/2022) T (12/28/2022) Abdiaziz Arias MD Cardiology:Compensat ed B P control r epeat echo Abdiaziz Arias MD Cardiology:SOB has b een rather chronic for him M ultifactorial, likely in part due to HFpEF D iscussed lifestyle changes E cho 07/03/2023 unremarkable W ill continue following with echos Abdiaziz Arias MD Cardiology:per PCP Abdiaziz Arias MD Cardiology: H is updated medication list for this problem includes: Rosuvastatin 20 Mg Tablet (Rosuvastatin) ..... Take 1 tablet by mouth daily Abdiaziz Arias MD Cardiology: H is updated medication list for this problem includes: Chlorthalidone 25 Mg Tablet (Chlorthalidone) ..... Take 1 tablet by mouth daily Amlodipine-olmesartan 5-40 Mg Tablet (Amlodipine-olmesartan) ..... Take 1 tablet by mouth every day Amiloride 5 Mg Tablet (Amiloride) ..... Take 1 tablet by mouth once a day Clonidine Hcl 0.1 Mg Tablet (Clonidine hcl) ..... Take 1 tablet by mouth twice daily Abdiaziz Arias MD Cardiology:Echo 06/19 unremarkable W ill continue following echo as his sob has worsened Abdiaziz Arias MD Cardiology: H is updated medication list for this problem includes: Rosuvastatin 20 Mg Tablet (Rosuvastatin) ..... Take 1 tablet by mouth daily Abdiaziz Arias MD Cardiology:resolved with use of inhalers Abdiaziz Arias MD Cardiology Abdiaziz Arias MD Cardiology:continue use of inhal ers as needed Abdiaziz Arias MD Cardiology: H is updated medication list for this problem includes: Amlodipine-olmesartan 5-40 Mg Tablet (Amlodipine-olmesartan) ..... Take 1 tablet by mouth every day Amiloride 5 Mg Tablet (Amiloride) ..... Take 1 tablet by mouth once a day Chlorthalidone 25 Mg Tablet (Chlorthalidone) ..... Take 1 tablet by mouth daily Clonidine Hcl 0.1 Mg Tablet (Clonidine hcl) ..... Take 1 tablet by mouth twice daily BP today: 144/90 P rior BP: 148/93 (06/20/2023) Labs Reviewed: C reat: 1.06 (12/28/2022) C hol: 179 (12/28/2022) HDL: 47 (12/28/2022) LDL: 93 MG/DL (CALC) (12/28/2022) T (12/28/2022) Abdiaziz Arias MD Cardiology: H is updated medication list for this problem includes: Amlodipine-olmesartan 5-40 Mg Tablet (Amlodipine-olmesartan) ..... Take 1 tablet by mouth every day Metformin 500 Mg Tablet (Metformin) ..... Take 1 tablet by mouth every day Ceceyanique Sanders [facility] Cardiology:The patie nt is using CPAP on a regular basis. The patient has been benefiting from therapy and should continue use. Ceceyanique Sanders [facility] Cardiology: H is updated medication list for this problem includes: Rosuvastatin 20 Mg Tablet (Rosuvastatin) ..... Take 1 tablet by mouth daily Cece Sanders [facility] Cardiology:continues to persist m ay be r/t asthma P FT planned for next week w ill do echo to look for any LV dysfunction, diastolic dysfunction or valvular abnormalities w ill also do pBNP H is updated medication list for this problem includes: Amiloride 5 Mg Tablet (Amiloride) ..... Take 1 tablet by mouth once a day Amlodipine-olmesartan 5-40 Mg Tablet (Amlodipine-olmesartan) ..... Take 1 tablet by mouth every day Chlorthalidone 25 Mg Tablet (Chlorthalidone) ..... Take 1 tablet by mouth daily Cece Marilyn [facility] Cardiology:BP elevat ed again today R eports well controlled at PCP visit last week H ave asked him to monitor at home G oal BP <130/80 W ill return in 3 mos or sooner if needed. Cece Sanders [facility] Cardiology:Patient d oes not feel like his CPAP is working correctly, will give him Dr. Smith's phone number Abdiaziz Arias MD Cardiology: B P today: 161/91 P rior BP: 161/97 (02/21/2023) Labs Reviewed: C reat: 1.06 (12/28/2022) C hol: 179 (12/28/2022) HDL: 47 (12/28/2022) LDL: 93 MG/DL (CALC) (12/28/2022) T (12/28/2022) Abdiaziz Arias MD Cardiology:Patient feels SOB Jewel Arias MD Cardiology Abdiaziz Arias MD Cardiology: B P today: 161/97 P rior BP: 163/102 (12/06/2022) Labs Reviewed: C reat: 1.06 (12/28/2022) C hol: 179 (12/28/2022) HDL: 47 (12/28/2022) LDL: 93 MG/DL (CALC) (12/28/2022) T (12/28/2022) The following medications were removed from the medication list: Losartan 25 Mg Tablet (Losartan) ..... Take 1 tablet by mouth every day Amlodipine-benazepril 10-20 Mg Capsule (Amlodipine-benazepril) ..... Take 1 capsule by mouth every day His updated medication list for this problem includes: Amlodipine-olmesartan 5-40 Mg Tablet (Amlodipine-olmesartan) ..... Take 1 tablet by mouth every day Chlorthalidone 25 Mg Tablet (Chlorthalidone) ..... Take 1 tablet by mouth daily Clonidine Hcl 0.1 Mg Tablet (Clonidine hcl) ..... Take 1 tablet by mouth twice daily Abdiaziz Arias MD Cardiology:as in hpi h as minimal disease and should conitnue statin Abdiaziz Arias MD Cardiology: H is updated medication list for this problem includes: Albuterol Sulfate 90 Mcg/actuation Hfa Aerosol Inhaler (Albuterol sulfate) ..... Inhale 2 puffs by mouth every 4 hours as needed Trelegy Ellipta 100-62.5-25 Mcg Blister With Device (Ufkdhhksybu-ipqqarqts-mpqwshaz) ..... Inhale 1 puff by mouth every day Abdiaziz Arias MD Cardiology: B P today: 163/102 His updated medication list for this problem includes: Clonidine Hcl 0.1 Mg Tablet (Clonidine hcl) ..... Take 1 tablet by mouth twice daily Amlodipine-benazepril 10-20 Mg Capsule (Amlodipine-benazepril) ..... Take 1 capsule by mouth every day Losartan 25 Mg Tablet (Losartan) ..... Take 1 tablet by mouth every day Abdiaziz Arias MD Cardiology Abdiaziz Arias MD Cardiology:Have recommended a ca rdiac cath Abdiaziz Arias MD Date Name Complete Echo Complete Echo PROBNP, N TERMINAL Complete Echo Ambulatory BP PROTHROMBIN TIME WIT H INR LIPID PANEL CBC (INCLUDES DIFF/P LT) BASIC METABOLIC PANE L W/EGFR Preop clearance, phn /internet/emr >5min HISTORY OF PROCEDURES Procedure Date Procedure Name Provider Procedure Notes S tatus Complex e/m visit add on Abdiaziz Arias MD completed Complex e/m visit add on Abdiaziz Arias MD completed EKG Abdiaziz Arias MD completed EKG Abdiaziz Arias MD completed
--- OUTSIDE RECORDS SUMMARY | 2024-11-24 00:07 | XMS_ITS | Clinical Summary ---
Author Organization [employer] [facility] [employer] [facility] Address [address] [address] Phone Care Team Providers Care Welder Explosion Name Role Phone Spencer Mobley MD Primary Care Provider [phone] Allergies No known active allergies Medications albuterol HFA (PROVENTIL HFA;VENTOLIN HFA) 108 (90 Base) MCG/ACT inhaler Inhale 2 puffs every 4 (four) hours if needed Active aMILoride (MIDAMOR) 5 MG tablet Take 1 tablet by mouth 1 (one) time each day Active aspirin (ST NELLY) 81 MG EC tablet Take 1 tablet every day by oral route. 0 Active fluticasone (FLONASE) 50 MCG/ACT nasal spray SHAKE LIQUID AND USE 2 SPRAYS IN EACH NOSTRIL EVERY DAY Active metFORMIN (GLUCOPHAGE) 500 MG tablet Take 1 tablet by mouth 1 (one) time each day Active Multiple Vitamins-Minera ls (PRESERVISION AREDS PO) 2 (two) times a day 8 Active rosuvastatin (CRESTOR) 20 MG tablet Take 1 tablet by mouth 1 (one) time each day Active Fluticasone-Ume clidin-Vilant (Trelegy Ellipta) 100-62.5-25 MCG/ACT aerosol powder Inhale 1 puff 1 (one) time each day Active FLUoxetine (PROzac) 40 MG capsule Take 40 mg by mouth 1 (one) time each day Active AZELASTINE HCL NA Administer into affected nostril(s) 2 (two) times a day Active amLODIPine-olme sartan (CLAUDETTE) 5-40 MG per tablet Take 1 tablet by mouth 1 (one) time each day Active cloNIDine (CATAPRES) 0.1 MG tablet Take 0.5 tablets (0.05 mg total) by mouth 1 (one) time each day 4 Active tamsulosin (FLOMAX) 0.4 MG 24 hr capsule TAKE 1 CAPSULE(0.4 MG) BY MOUTH 1 TIME EACH DAY 90 capsule 4 Active Dapagliflozin Propanediol (Farxiga) 10 MG tablet Take 10 mg by mouth 1 (one) time each day in the morning 30 tablet 5 5 Active Dapagliflozin Propanediol (Farxiga) 10 MG tablet Take 10 mg by mouth 1 (one) time each day in the morning 30 tablet 5 4 11/10/19 25 Discontin ued(Reord er (does not appear on AVS)) Active Problems Problem Noted Date Diagnosed Date Chronic obstructive pulmonary disease 02/03/2024 Dyslipidemia 02/03/2024 Essential hypertension 02/03/2024 Hypokalemia 02/03/2024 Tobacco user 02/03/2024 Sleep apnea 02/03/2024 Type 2 diabetes mellitus without complication Anxiety 03/13/2020 Chronic kidney disease stage 3B Diabetes mellitus without me ntion of complication, type II or unspecified type, not stated as uncontrolled Encounters Date Type Department Care Team Description 11/09/2024 Refill [facility], [place] [phone] Abby Anthony CMA 09/25/2024 Refill [facility], [address] [phone] Abby Anthony CMA from Last 3 Months Family History Medical History Relation Comments Heart disease Brother Hypertension Brother Cancer Father Heart disease Father Hyperlipidemia Father Hypertension Father Stroke Father Cancer Sister Relation Status Comments Brother Father Mother Sister Social History Tobacco Use Types Packs/Day Years Used Date Smoking Tobacco: Former Cigarettes Tobacco Cessation:Counseling Given: Not Answered Alcohol Use Standard Drinks/Week Comments Not Currently 0 (1 standard drink = 0.6 oz pur e alcohol) Sex and Gender Information Value Date Recorded Sex Assigned at Not on file Legal Sex Male 1:16 PM EDT Gender Identity Not on file Sexual Orientation Not on file Last Filed Vital Signs Vital Sign Reading Time Taken Comments Blood Pressure 122/80 04/30/2024 12:53 PM CDT Pulse 76 04/30/2024 12:53 PM CDT Temperature 36.7 C (98.1 F) 04/30/2024 12:53 PM CDT Respiratory Rate 18 04/30/2024 12:53 PM CDT Oxygen Saturation 98% 04/30/2024 12:53 PM CDT Inhaled Oxygen Concentration - - Weight 80.7 kg (178 lb) 04/30/2024 12:53 PM CDT Height 167.6 cm (5' 6 ) 04/30/2024 12:53 PM CDT Body Mass Index 28.73 04/30/2024 12:53 PM CDT Plan of Treatment Health Maintenance Due Date Last Done Comments Pneumococcal Vaccine: 65+ Years (1 of 2 - PCV) 1961 Colorectal Cancer Screening: Annual FOBT 2003 Colorectal Cancer Screening: Colonoscopy 2003 Colorectal Cancer Screening: Sigmoidoscopy 2003 Diabetes: Ophthalmology Exam 01/09/2024 Diabetes: Pedal Pulse Checked 01/09/2024 Diabetes: Sensory Foot Exam 01/09/2024 Diabetes: Visual Foot Exam 01/09/2024 Diabetes: Hemoglobin A1C 05/07/2024 02/05/2024, 0404/2024 Influenza Vaccine (Season Ended) 2025 08/17/2019, 06/06/2018, 09/20/2017, Additional history exists Hepatitis B Vaccine Aged Out No longe r eligible based on patient's age to complete this topic Procedures Procedure Name Priority Date/Time Associated Diagnosis Comments HEMOGLOBIN A1C Routine 02/05/2024 7:39 AM CDT from Last 3 Months or Most Recently Relevant to Health Maintenance Results * (ABNORMAL) Hemoglobin A1c (02/05/2024 7:39 AM CDT) Hemoglobin A1C 7.8(H) <5.7 % of total Hgb See order comments Comment: For someone without known diabetes, a hemoglobin A1c value of 6.5% or greater indicates that they may have diabetes and this should be confirmed with a follow-up test. For someone with known diabetes, a value <7% indicates that their diabetes is well controlled and a value greater than or equal to 7% indicates suboptimal control. A1c targets should be individualized based on duration of diabetes, age, comorbid conditions, and other considerations. Currently, no consensus exists regarding use of hemoglobin A1c for diagnosis of diabetes for children. This test was performed on the Van norma c503 platform. Effective 11/04/23, a change in test platforms from the [employer] to the [employer] norma c503 may have shifted HbA1c results compared to historical results. Based on laboratory validation testing conducted at [facility], the Van platform relative to the [employer] platform had an average increase in HbA1c value of < or = 0.3%. This difference is within accepted variability established by the National Glycohemoglobin Standardization Program. Note that not all individuals will have had a shift in their results and direct comparisons between historical and current results for testing conducted on different platforms is not recommended. 02/05/2024 7:39 AM CDT 02/05/2024 7:41 AM CDT Narrative [facility] - 02/06/2024 11:01 AM CDT FASTING:YES FASTING: YES Resulting Agency Comment Performing Organization Information: Site ID: Name: [employer] Address: [address] [place] [address] Director: Nicola Guillermo us Sameed Pawel Soto MD LAB BLOOD ORDERABLES Final Res ult [facility] See order comments [place] [address] from Last 3 Months or Most Recently Relevant to Health Maintenance Insurance [facility] Advance Directives Documents on File Type Date Recorded Patient House Steward/Stewardess Expl anation Advance Care Planning 03/17/2024 3:20 PM Care Teams Welder Explosion Relationship Specialty Start Date End Date Spencer Mobley MD [facility] [address] [place] [address] PCP - General Internal Medicine 01/08/24
--- OUTSIDE RECORDS SUMMARY | 2024-11-24 00:08 | XMS_ITS | Data Portability ---
Author Organization [facility] WILMERLeticia Address [address] [place] [address] Assessment Encounter Date Assessment Date Assessment LastModified by Organization Details LastModified Time 11/28/2023 11/28/2023 Hypertension blood pressure borderline today can follow-up with cardiology who has been adjusting medications reiterated regular walking avoidance of alcohol and tobacco processed foods and salt and monitoring his pressure on a daily basis. Diabetes check blood work A1c dyslipidemia continue with rosuvastatin asthma/COPD stable he was advised to stay up-to-date on RSV COVID flu shots is not sure about colon cancer screening so we will have to get previous screening and immunization records and those will have to be evaluated when they are produced follow-up with me in 4 months from my standpoint he can have cataract surgery if needed [email or web address] Not available 12/16/2023 21:02:02 03/26/2024 03/26/2024 blood work for biochemical management of disease processes and medications. Follow up with me in 4 months colonoscopy all questions answered [email or web address] Not available 04/04/2024 15:38:06 09/03/2024 09/03/2024 reviewed his last blood work with him. Healthy lifestyle care instructions. I have told him to get in with the urologist as soon as he can. He is getting his colonoscopy at the end of the month. Last blood work was reviewed. Exercise was reviewed. He will get a flu shot today. Encouraged a diabetic foot exam with Podiatry. Refilled medicines were needed. Return to clinic 4 months' [email or web address] Not available 09/03/2024 21:06:07 Plan of Treatment Reminders Order Date Submit Date Provider Last Modified By Organization Details Last Modified Time Details Appointments ANY 15 2024 03:00P Kenneth Mobley MD Not available Not available Not available Lab PSA, serum or plasma 2023 024 [facility], [address], [place], [address], 04/28/2024 14:17:45 HbA1c (hemoglob in A1c), blood 2023 024 [facility], [address], [place], [address], 04/28/2024 14:17:45 albumin/c reatinine , mass ratio, urine 2023 024 [facility], [address], [place], [address], 04/28/2024 14:17:45 CMP, serum or plasma 2023 024 [facility], [address], [place], [address], 04/28/2024 14:17:45 CBC w/ auto diff 2023 024 [facility], [address], [place], [address], 04/28/2024 14:17:45 lipid panel, serum 2023 024 [facility], [address], [place], [address], 04/27/2024 09:38:10 HbA1c (hemoglob in A1c), blood 2023 024 [facility], [address] [facility], [address], [place], [address], 12/10/2023 14:44:24 CBC w/ auto diff 2023 024 [facility], [address], [address], [place], [address], 12/10/2023 14:44:24 lipid panel, serum 2023 024 [place] [facility], [address], [address], [place], [address], 12/10/2023 14:44:24 CMP, serum or plasma 2023 024 [place] [facility], [address], [address], [place], [address], 12/10/2023 14:44:24 Referral None recorded. Procedures colonosco py screening (PROC) 2023 024 [facility], [address], [address], [place], [address], 11/04/2024 12:16:53 Surgeries None recorded. Imaging None recorded. Medication Orders rosuvasta tin 20 mg tablet 2024 025 [email or web address] [id number], [address], [place], [place], [id number], 09/03/2024 17:33:30 OneTouch Verio test strips 2023 024 [id number], [address], [place], [place], [id number], 11/28/2023 11:11:15 Patient TargetsNo targets recorded. Patient Instructions Encounter Date Encounter Id Patient Instructions Last Modified By Organization Details Last Modified Time 03/26/2024 [id number] A healthy lifestyle: care instructions [email or web address] Not available 03/26/2024 13:22:13 09/03/2024 [id number] A healthy lifestyle: care instructions [email or web address] Not available 09/03/2024 17:33:30 Reason for Referral None Reported. Results Created Date Observation Date Name Description Value Unit Range Abnormal Flag Note LastModifiedBy Organization Detail LastModifiedTime 02/05/20 24 02/06/2024 Hemog lobin A1c/H emogl obin. total in Blood hemoglobin A1C/hemoglob in.total in blood 7.8 text: <5.7 % of total HGB high Hemog lobin A1C 7.8 (H) <5.7 % of total Hgb See order comme nts Not Available Not Available 11/10/2024 16:59:39 02/05/20 24 02/06/2024 Hemog lobin A1c/H emogl obin. total in Blood Unknown Analyte FASTIN G:YES FASTIN G: YES Not Available Not Available 16:59:39 02/05/20 24 02/06/2024 Hemog lobin A1c/H emogl obin. total in Blood Unknown Analyte Perfor ganesh Organi zation Inform ation: Site ID: Name: [facility] Addres s: [id number] [place] [address] Direct or: Kaylene-L ieu Thi Vo Perfo rming Organ izati on Infor el n: Site ID: Name: [facility] Addre ss: [id number] [place] [address] Direc tor: Kaylene- Lieu Thi Vo Not Available Not Available 11/10/2024 16:59:39 02/05/20 24 02/06/2024 Hemog lobin A1c/H emogl obin. total in Blood interpretati on and review of laboratory results Abnorm al Not Available Not Available 16:59:39 05/15/20 24 05/15/2024 garo rao am, rod ne ECG, 12 leads min; inter preta tion and repor t (PROC ) No observ ation record ed. [facility] [address], [place], [address], 05/18/2024 09:28:12 05/21/20 24 05/21/2024 US, renal No observ ation record ed. [address], [place], [address], 05/27/2024 23:15:36 Result Notes None recorded. Problems Name Problem SNOMED Code Status Onset Date Resolution Date Notes Provider Name and Address Organization Details Recorded Time Type 2 diabetes mellitus 76028603 Active 2023 Derek Anderson MA null, [facility] 4 10:56:44 Essential hypertension 19876489 Active 2023 Derek Anderson MA null, [facility] 4 10:36:01 Hyperlipidemia 36643840 Active 2023 Derek Anderson MA null, [facility] 4 10:36:02 Pneumococcal vaccination declined 283491581 Active 2024 Spencer Mobley MD Attn: Prabhakar draper,[address] [facility], [place], [address], [facility] 5 21:02:35 Problem Notes None recorded. Procedures Surgical History Date Name Laterality Status Provider Name and Address Organization Details Recorded Time Eye Surgery completed Antonia Botello MA [facility] 11/28/2023 10:32:14 Vasectomy completed Antonia Botello MA [facility] 11/28/2023 10:32:18 Imaging Results Imaging Date Name Status LastModified by Organization Details LastModified Time 05/15/2024 electrocardiogram, routine ECG, 12 leads min; interpretation and report (PROC) completed [facility] [address], [place], [address], 05/18/2024 09:28:12 05/21/2024 , renal completed [address], [place], [address], 05/27/2024 23:15:36 Procedure Notes None recorded. Medical Equipment None Reported. Allergies No known drug allergies Medications Name Sig Start Date Stop Date Status Note LastModified by Organization Details LastModified Time Prescription - Prior Authorizatio n Request 11/27 completed Not Available Not Available Not Available fluoxetine 40 mg capsule TAKE 1 CAPSULE BY MOUTH EVERY DAY 2024 active Not Available Not Available Not Avai lable amoxicillin 500 mg capsule TAKE ONE CAPSULE BY MOUTH THREE TIMES DAILY UNTIL ALL TAKEN 11/27 completed Not Available Not Available Not Available metformin 500 mg tablet TAKE 1 TABLET BY MOUTH EVERY DAY 2024 active Not Available Not Available Not Avai lable clonidine HCl 0.1 mg tablet TAKE 1 TABLET BY MOUTH TWICE DAILY 2023 active Not Available Not Available Not Avai lable prednisone 20 mg tablet TAKE 2 TABLETS BY MOUTH EVERY DAY FOR 5 DAYS active Not Available Not Available No t Available acetaminophe n 300 mg-codeine 30 mg tablet TAKE 1 TABLET BY MOUTH EVERY 6 HOURS NEEDED FOR PAIN 11/27 completed Not Available Not Available Not Available chlorthalido ne 25 mg tablet TAKE 1 TABLET BY MOUTH DAILY active Not Available Not Available No t Available amoxicillin 500 mg tablet TAKE 1 TABLET BY MOUTH THREE TIMES DAILY UNTIL GONE 03/26 completed Not Available Not Available Not Available amiloride 5 mg tablet TAKE 1 TABLET BY MOUTH EVERY DAY active Not Available Not Available No t Available potassium chloride ER 20 mEq tablet,exten ded release(part /cryst) TAKE 1 TABLET BY MOUTH TWICE DAILY 2023 active Not Available Not Available Not Avai lable tamsulosin 0.4 mg capsule active Not Available Not Available Not Available losartan 25 mg tablet TAKE 1 TABLET BY MOUTH EVERY DAY 11/27 completed Not Available Not Available Not Available azelastine 137 mcg (0.1 %) nasal spray USE 2 SPRAYS IN EACH NOSTRIL TWICE DAILY active Not Available Not Available No t Available albuterol sulfate HFA 90 mcg/actuatio n aerosol inhaler INHALE 2 PUFFS BY MOUTH EVERY 4 HOURS active Not Available Not Available No t Available fluticasone propionate 50 mcg/actuatio n nasal spray,suspen german Shake liquid and use 2 sprays in each nostril every day 2023 active Not Available Not Available Not Avai lable amoxicillin 875 mg-potassium clavulanate 125 mg tablet TAKE 1 TABLET BY MOUTH TWICE DAILY UNTIL ALL TAKEN 03/26 completed Not Available Not Available Not Available amlodipine 10 mg-benazepri l 20 mg capsule TAKE 1 CAPSULE BY MOUTH EVERY DAY 11/27 completed Not Available Not Available Not Available rosuvastatin 20 mg tablet TAKE 1 TABLET BY MOUTH DAILY active Not Available Not Available No t Available amlodipine 5 mg-olmesarta n 40 mg tablet TAKE 1 TABLET BY MOUTH EVERY DAY active Not Available Not Available No t Available OneTouch Verio test strips USE 1 STRIP TO TEST BLOOD SUGAR DAILY active Not Available Not Available No t Available dapagliflozi n propanediol 10 mg tablet TAKE 1 TABLET BY MOUTH 1 TIME EACH DAY IN THE MORNING active Not Available Not Available No t Available potassium chloride ER 20 mEq tablet,exten ded release TAKE 1 TABLET BY MOUTH TWICE DAILY active Not Available Not Available No t Available Trelegy Ellipta 100 mcg-62.5 mcg-25 mcg powder for inhalation active Not Available Not Available N ot Available aspirin 81 mg capsule Take 1 capsule every day by oral route. active Not Available Not Available No t Available Vitals Date Recorded Body weight Body mass index (BMI) Body height Heart rate Body temperature Oxygen saturation Oxygen saturation in Arterial blood by Pulse oximetry Systolic blood pressure Diastolic blood pressure Provider Name and Address Organization Details Last Updated DateTime 4 09895.8 8 g 28.8 kg/m2 167.64 cm 62 /min 98.2 [degF] 98 % 98 % 142 mm[Hg] 90 mm[Hg] Antonia Botello MA [facility] 4 10:43:24 Date Recorded Body height Body mass index (BMI) Body weight Heart rate Oxygen saturation Oxygen saturation in Arterial blood by Pulse oximetry Systolic blood pressure Diastolic blood pressure Provider Name and Address Organization Details Last Updated DateTime 4 167.64 cm 28.9 kg/m2 77579.0 3 g 70 /min 97 % 97 % 136 mm[Hg] 78 mm[Hg] Alysa Linder MA [facility] 4 10:10:06 Date Recorded Body height Body mass index (BMI) Body weight Heart rate Oxygen saturation Oxygen saturation in Arterial blood by Pulse oximetry Systolic blood pressure Diastolic blood pressure Provider Name and Address Organization Details Last Updated DateTime 5 167.64 cm 29.2 kg/m2 08193.1 4 g 90 /min 95 % 95 % 124 mm[Hg] 68 mm[Hg] Deanna Carrizales MA [facility] 5 16:20:00 Social History Question Answer Notes LastModified by Organizat ion Details LastModified Time Tobacco Smoking Status Former Smoker Antonia Botello MA null, [facility] 11/28/2023 10:33:38 Do You Have An Advance Directive? No Information not available 03/26/2024 What Is Your Level Of Alcohol Consumption? None Information not available 11/28/2023 Are You Blind Or Do You Have Difficulty Seeing? No Secondary Cataract Removal Information not available 11/28/2023 Are You Deaf Or Do You Have Serious Difficulty Hearing? No Information not available 11/28/2023 Are There Any Guns Present In Your Home? No Information not available 09/03/2024 What Was The Date Of Your Most Recent Tobacco Screening? 09/03/2024 Information not available 09/03/2024 What Is Your Relationship Status? Information not available 11/28/2023 Do You Use Your Seat Belt Or Car Seat Routinely? Yes Information not available 03/26/2024 Do You Have Smoke And Carbon Monoxide Detectors In Your Home? Yes Information not available 03/26/2024 How Much Tobacco Do You Smoke? 2 PPD Information not available 11/28/2023 Do You Feel Stressed (tense, Restless, Nervous, Or Anxious, Or Unable To Sleep At Night)? [id number] Information not available 11/28/2023 Do You Use Any Illicit Or Recreational Drugs? No Information not available 03/26/2024 Do You Use Sunscreen Routinely? Yes Information not available 09/03/2024 Has Tobacco Cessation Counseling Been Provided? No Information not available 03/26/2024 How Many Years Have You Smoked Tobacco? 20 Information not available 11/28/2023 Do You Or Have You Ever Used Any Other Forms Of Tobacco Or Nicotine? No Information not available 03/26/2024 Sex: Unknown Functional Status Question Answer Note LastModified by Organization D etails LastModified Time Are you able to care for yourself? Yes Information n ot available 11/28/2023 Mental Status None recorded. Family History Relationship Description Onset Age of this Age Resolved Age Notes LastModified by Organization Details LastModified Time Father Asthma [email or web address] Not available 11/28/2023 10:32:30 Father Cerebrovascu lar accident [email or web address] Not available 06/2024 10:32:43 Father Depressive disorder [email or web address] Not available 2023 10:32:49 Father Heart disease [email or web address] Not available 2023 10:32:55 Father Hypertensive disorder [email or web address] Not available 2023 10:33:03 Father Hypercholest erolemia [email or web address] Not available 2023 10:33:07 Mother Asthma [email or web address] Not available 11/28/2023 10:32:30 Sister Malignant tumor of breast [email or web address] Not available 2023 10:32:38 Sister Osteoporosis [email or web address] Not avai lable 11/28/2023 10:33:14 Medical History Condition Response Diabetes Y High Blood Pressure Y COPD Y Asthma Y Allergies Y High Cholesterol Y Immunizations Vaccine Type Date Status Note Provider Nam e and Address Organization Details Recorded Time Influenza, high-dose, trivalent, PF 09/03/2024 completed Spencer Mobley MD Attn: [address] [place], [address], [facility] 09/03/2024 20:58:02 Past Encounters Encounter ID Performer Location Encounter Start Date Encounter Closed Date Diagnosis/Indication Diagnosis SNOMED-CT Code Diagnosis ICD10 Code Diagnosis Note [id number] Spencer Mobley MD [facility] [employer] [address] [facility] [address] [place] [address] 11/28/2023 10:10:41 11/28/2023 11:01:35 Type 2 diabetes mellitus 76586104 E11.9 Essential hypertension 25632546 I10 Hyperlipidemia 67050489 E78.5 Chronic ob structive pulmonary disease 26689145 J44.9 [id number] Spencer Mobley MD [facility] [employer] [address] [place] [address] 03/26/2024 09:45:48 03/26/2024 10:51:25 Overweight 133508987 E66.3 Type 2 jaydon betes mellitus 06992071 E11.9 Essential hypertension 20124049 I10 Hyperlipidemia 14120550 E78.5 Screening for malignant neoplasm of prostate 864696866 Z12.5 Screening for malignant neoplasm of colon 893216755 Z12.11 [id number] Spencer Mobley MD [facility] [employer] [address] [place] [address] 09/03/2024 15:50:43 09/03/2024 16:59:00 Hyperlipidemia 18439497 E78.5 Body mass index 25-29 - overweight 944665998 Z68.29 Overweight 283500301 E66 .3 Essential hypertension 93421425 I10 Type 2 jaydon betes mellitus 68109883 E11.9 Administra tion of influenza vaccine 04865693 Z23 Chronic ob structive pulmonary disease 82280496 J44.9 Pneumococc al vaccination declined 481336258 Z28.21 Health Concerns Section Related Observation LastModified by Organization Detai ls LastModified Time None Recorded Concern Status LastModified by Organization Details LastModified Time None Recorded Advance Directives Directive N: Payers Encounter Date Sequence Insurance Name Policy Number Policy Walton Covered Member ID Walton Member ID Guarantor Name 11/28/2023 1 [employer] [id number] Sami Borror [id number] Sami Borror 03/26/2024 1 [employer] 680 Sami Borror [id number] Sami Borror 09/03/2024 1 [employer] 680 Sami Borror [id number] Sami Borror Notes Date Note Type Note Provider Name and Address Organization Details Recorded Time 11/28/2023 text/html 68-year-old with asthma/COPD diabetes high blood pressure and high cholesterol who comes in to follow-up on his medical problem COPD asthma his breathing's been stable not a lot of rescue inhaler use diabetes no polyphagia or polydipsia. High cholesterol does try to watch his diet he is taking his rosuvastatin. He has an upcoming cataract surgery Spencer Mobley MD Attn: [employer] [place], [address], [facility] 12/16/2023 21:02:30 03/26/2024 text/html 68-year-old with asthma/COPD diabetes high blood pressure and high cholesterol who comes in to follow-up on his medical problem COPD asthma his breathing's been stable not a lot of rescue inhaler use diabetes no polyphagia or polydipsia. High cholesterol does try to watch his diet he is taking his rosuvastatin. Spencer Mobley MD Attn: [employer] [place], [address], [facility] 04/04/2024 15:38:23 09/03/2024 text/html here for follow up of his medical problems he is taking the rosuvastatin for hyperlipidemia last blood work did not look bad hypertension blood pressure is controlled diabetes no polyphagia or polydipsia COPD has been stable no shortness a breath at this time. Elevated PSA he has not gone to to see the urologist again he has had a history of elevated PSA Spencer Mobley MD Attn: [employer] [facility], [place], [address], [facility] 09/03/2024 21:06:33
[2024-11-24 08:52] VITALS: BP 125/87; PULSE 92; RESP 20; TEMP 35.9; O2SAT 97; BMI 28.6
[2024-11-24] MEDS: LACTATED RINGERS 1,000 ML 150 ML IV CONT (09:05)
[2024-11-24 09:23] LABS: Glucose Point of Care 171 mg/dl (65-105)
--- NOTE | 2024-11-24 09:26 | PM.HPGS ---
History of Present Illness History of Present Illness Consent: Risks, benefits, and alternatives have been discussed and questions answered. Patient agrees to proceed with procedure. Chief complaint: SCREENING MALIGNANT NEOPLASM COLON Narrative: Sami Lewis is a 69 year old male here for screening colonoscopy, last one more than 20 years ago Review of Systems Review of Systems: All systems reviewed & are unremarkable except as noted in HPI and below PMFSH Past Medical History Medical History (Updated 11/24/24 @ 09:28 by Osmar Chavarria MD) Colon cancer screening Social History Social History Smoking packs per day: 3 Smoking cigarettes per day: 60.0 Years smoked: 30 Smoking pack-years: 90.00 Smoking status: Former smoker Tobacco type: cigarettes Living arrangements: with family Spiritual care concerns: No Meds Home Medications and Allergies Home Medications ?Medication ?Instructions ?Recorded ?Confirmed ?Type albuterol sulfate 90 mcg/actuation 2 puff inhalation Q4H PRN 11/13/24 11/24/24 History aerosol inhaler shortness of breath or wheezing amiloride 5 mg tablet 5 mg PO EVERY OTHER DAY 11/13/24 11/24/24 History amlodipine 5 mg-olmesartan 40 mg 1 tablet PO DAILY 11/13/24 11/24/24 History tablet azelastine 137 mcg (0.1 %) nasal 2 spray intranasal BID 11/13/24 11/24/24 History spray chlorthalidone 25 mg tablet 25 mg PO DAILY 11/13/24 11/24/24 History dapagliflozin propanediol 10 mg 10 mg PO DAILY 11/13/24 11/24/24 History tablet fluoxetine 40 mg capsule 40 mg PO DAILY 11/13/24 11/24/24 History fluticasone fur. 100 mcg-umeclid 1 inh inhalation DAILY 11/13/24 11/24/24 History 62.5 mcg-vilant 25 mcg inhalat.powder (Trelegy Ellipta) aspirin 81 mg tablet,delayed 81 mg PO DAILY 11/24/24 11/24/24 History release (Adult Aspirin Regimen) cholecalciferol (vitamin D3) 50 2,000 unit PO DAILY 11/24/24 11/24/24 History mcg (2,000 unit) capsule (Vitamin D3) ferrous sulfate 325 mg (65 mg 325 mg PO DAILY 11/24/24 11/24/24 History iron) tablet (Feosol) tamsulosin 0.4 mg capsule 0.4 mg PO DAILY 11/24/24 11/24/24 History vit C 250 mg-vit E 200 unit-zinc 2 cap PO DAILY 11/24/24 11/24/24 History ox 12.5 yw-gajumv-rmrizh-zeax capsule Allergies Allergy/AdvReac Type Severity Reaction Status Date / Time No Known Allergies Allergy Verified 11/24/24 08:48 Vital Signs Vital Signs - 24 hr 11/24/24 08:52 Temperature 96.7 F L Pulse Rate 92 Respiratory Rate 20 Blood Pressure 125/87 Pulse Oximetry 97 Oxygen Delivery Room Air Exam Const: General: comfortable and no acute distress HENMT: Face/Nose/Sinus: Normal nares present Eyes: General: appearance normal, both eyes and all related structures Neck: Neck: no JVD Resp: Auscultation: clear to auscultation bilaterally Cardio: Rate: regular rate Rhythm: regular rhythm GI: Inspection: non-distended GI Palp: Yes Soft to palpation Skin: General skin exam: normal color Neuro: Speech: normal speech Extrem: General: normal to inspection Psych: Mental Status: mental status grossly normal Assessment and Plan Assessment and plan (1) Colon cancer screening: Code(s): Z12.11 - Encounter for screening for malignant neoplasm of colon Status: Acute Assessment and Plan: colonoscopy
--- NOTE | 2024-11-24 09:35 | P.PNAN_ITS ---
Anes - Initial Pre Proc Eval Procedure: Operation Date: 11/24/24 10:00 Proposed Procedures p Screening Colonoscopy - Osmar Chavarria MD Date/Time: 11/24/24 09:35 Surgeon: Osmar Chavarria MD Pre Op Diagnosis: SCREENING MALIGNANT NEOPLASM COLON Patient Data Age: 69 Gender: M Height: 1.68 m Weight: 80.5 kg Last Vital Signs Temp 35.9 C L 11/24/24 08:52 Pulse 92 11/24/24 08:52 Resp 20 11/24/24 08:52 BP 125/87 11/24/24 08:52 Pulse Ox 97 11/24/24 08:52 O2 Del Method Room Air 11/24/24 08:52 Allergies Allergy/AdvReac Type Severity Reaction Status Date / Time No Known Allergies Allergy Verified 11/24/24 08:48 Home Medications ?Medication ?Instructions ?Recorded ?Confirmed ?Type albuterol sulfate 90 mcg/actuation 2 puff inhalation Q4H PRN 11/13/24 11/24/24 History aerosol inhaler shortness of breath or wheezing amiloride 5 mg tablet 5 mg PO EVERY OTHER DAY 11/13/24 11/24/24 History amlodipine 5 mg-olmesartan 40 mg 1 tablet PO DAILY 11/13/24 11/24/24 History tablet azelastine 137 mcg (0.1 %) nasal 2 spray intranasal BID 11/13/24 11/24/24 History spray chlorthalidone 25 mg tablet 25 mg PO DAILY 11/13/24 11/24/24 History dapagliflozin propanediol 10 mg 10 mg PO DAILY 11/13/24 11/24/24 History tablet fluoxetine 40 mg capsule 40 mg PO DAILY 11/13/24 11/24/24 History fluticasone fur. 100 mcg-umeclid 1 inh inhalation DAILY 11/13/24 11/24/24 History 62.5 mcg-vilant 25 mcg inhalat.powder (Trelegy Ellipta) aspirin 81 mg tablet,delayed 81 mg PO DAILY 11/24/24 11/24/24 History release (Adult Aspirin Regimen) cholecalciferol (vitamin D3) 50 2,000 unit PO DAILY 11/24/24 11/24/24 History mcg (2,000 unit) capsule (Vitamin D3) ferrous sulfate 325 mg (65 mg 325 mg PO DAILY 11/24/24 11/24/24 History iron) tablet (Feosol) tamsulosin 0.4 mg capsule 0.4 mg PO DAILY 11/24/24 11/24/24 History vit C 250 mg-vit E 200 unit-zinc 2 cap PO DAILY 11/24/24 11/24/24 History ox 12.5 cm-rhpspe-kbxvsw-zeax capsule Laboratory Tests 11/24/24 09:03 POC Capillary Glucose 171 H mg/dl (65-105) Patient hx anesthesia problems: none Family hx anesthesia problems: none Results Review: All pre-operative results and documents have been reviewed as part of the pre-op erative evaluation. [facility] Past Medical History Medical History Colon cancer screening Social History Social History Smoking packs per day: 3 Smoking cigarettes per day: 60.0 Years smoked: 30 Smoking pack-years: 90.00 Smoking status: Former smoker Tobacco type: cigarettes Living arrangements: with family Spiritual care concerns: No Anes - Eval Final PreProcedure Day of Procedure 11/24/24 09:35 Patient weight: overweight Heart: regular rate and rhythm Lungs: decreased breath sounds Airway: Mallampati scale class II Neurological: alert and oriented Last oral intake: >/= 8 hours ASA classification: III Emergent: no Anesthetic plan: proceed Anesthesia type and monitoring: general GIVS and standard monitoring Results Review: All pre-operative results and documents have been reviewed as part of the pre- operative evaluation. Informed Consent: The patient's anesthetic plan and its attendant risks and benefits were discussed with the patient/family/POA. Questions were solicited and answers provided to the satisfaction of the patient/family/POA.
[2024-11-24 10:03] VITALS: BP 75/48; PULSE 73; RESP 15; O2SAT 93
[2024-11-24 10:13] VITALS: BP 88/53; PULSE 65; RESP 15; O2SAT 93
[2024-11-24 10:23] VITALS: BP 102/66; PULSE 65; RESP 15; O2SAT 94
[2024-11-24 10:33] VITALS: BP 106/69
== END 2024-11-24 10:44 | disposition home or self-care (01) ==
PROVIDERS: PCP Internal Medicine; Visit Provider Internal Medicine Gastroenterology
PROC: 0DJD8ZZ Inspection of Lower Intestinal Tract, Via Natural or Artificial Opening Endoscopic (ICD-10-PCS; CPT 45378; principal; 2024-11-24 10:00)
DX: Z12.11 Encounter for screening for malignant neoplasm of colon (principal); D12.2 Benign neoplasm of ascending colon; D12.3 Benign neoplasm of transverse colon; D12.4 Benign neoplasm of descending colon; K64.8 Other hemorrhoids; K57.30 Diverticulosis of large intestine without perforation or abscess without bleeding; Z79.51 Long term (current) use of inhaled steroids; Z79.82 Long term (current) use of aspirin; Z87.891 Personal history of nicotine dependence
CPT/HCPCS: 45385; 82948; 88305; J2371; J2704; J7120

== ENCOUNTER 2024-12-03 08:50 | Outpatient (CLI) | payer OTHER, SELFPAY ==
--- NOTE | ~2024-12-03 | CT_ITS ---
CT of the Abdomen and Pelvis: Indication: Hematuria Technique: 2.5 mm axial scans were obtained through the abdomen and pelvis prior to and following in travenous administration of 130 cc of Omnipaque 350. Dose reduction technique was used on this scan b y utilizing automated exposure control and iterative reconstruction technique. The dose-length produc t (DLP) was 1395.25 mGy-cm. Findings: Scans through the lung bases are unremarkable. The liver, spleen, pancreas, and adrenal glands are within normal limits. Multiple small bilateral re nal cysts are present. No renal stone or hydronephrosis on either side. Multiple small calcified gall stones are present. There are atherosclerotic calcifications of the aorta. No lymphadenopathy. No bowel obstruction or bowel wall thickening. There is no evidence to suggest acute appendicitis. Images through the pelvis were performed. Urinary bladder unremarkable. Prostate gland markedly enlar ged. Impression: No distinct etiology for hematuria identified. Markedly enlarged prostate gland. Cholelithiasis. Reviewed, dictated and finalized at location . Impression: No distinct etiology for hematuria identified. Markedly enlarged prostate gland. Cholelithiasis.
--- OUTSIDE RECORDS SUMMARY | 2024-12-03 09:15 | XMS_ITS | Clinical Summary ---
Author Organization [employer] [facility] [employer] [facility] Address [address] [address] Phone Care Team Providers Care Subcontracts Manager Name Role Phone Spencer Mobley MD Primary Care Provider [phone] Allergies No known active allergies Medications albuterol [...] Type Department Care Team Description 11/09/2024 Refill [facility], [place] [phone] Abby Anthony CMA 09/25/2024 Refill [facility], [address] [phone] Abby Anthony CMA from Last 3 Months [...] Due Date Last Done Comments Pneumococcal Vaccine: 50+ Years (1 of 2 - PCV) 1973 Colorectal Cancer Screening: Annual FOBT 2003 Colorectal [...] change in test platforms from the [employer] to the [employer] norma c503 may have shifted HbA1c results compared to historical results. Based on laboratory validation testing conducted at [employer] the Van platform relative to the [employer]akta [...] AM CDT 02/05/2024 7:41 AM CDT Narrative [facility] - 02/06/2024 11:01 AM CDT FASTING:YES FASTING: YES Resulting Agency Comment Performing Organization Information: Site ID: Name: [facility] Address: [address] [place] [id number] Director: Nicola Guillermo us Sameed Pawel Soto MD LAB BLOOD ORDERABLES Final Res ult [facility] See order comments [place] [address] from Last 3 Months or Most Recently Relevant to Health Maintenance Insurance [facility] Advance Directives Documents on File Type Date Recorded Patient Minute Clerk Expl anation Advance Care Planning 03/17/2024 3:20 PM Care Teams Subcontracts Manager Relationship Specialty Start Date End Date Spencer Mobley MD [facility] [address] [place] [address] PCP - General Internal Medicine 01/08/24
--- OUTSIDE RECORDS SUMMARY | 2024-12-03 09:16 | XMS_ITS | Data Portability ---
Author Organization [facility] [employer] Main Office Address [address] [place] [address] Care Team Providers Care Bartender Name Role Phone DEBORAH MOBLEY Primary Care Provider [phone] Assessment Encounter Date Assessment Date Assessment LastModified by Organization Details LastModified Time 10/26/2022 10/26/2022 Blood pressure u p a little bit has not taking his medication blood work been ordered 2 week follow-up eat better take medications medications as prescribed stress test if chest pain recurs ER [email or web address] Not available 10/26/2022 17:08:11 06/12/2023 06/12/2023 Blood work Target for A1c LDL blood pressure discussed Regular exercise Stay up-to-date on immunization Consult notes reviewed diagnosis assessment plan discussed. Follow-up in 4 month Heart catheterization nonobstructive disease Not available 06/15/2023 16:23:36 Plan of Treatment Reminders Order Date Submit Date Provider Last Modified By Organization Details Last Modified Time Details Appointments None recorded. Lab PSA, total, serum or plasma [address] (Lab), [address] [place], [address], 18:37:49 CBC w/ auto diff [address] (Lab), [address] [place], [address], 4 18:37:49 lipid panel, serum [address] (Lab), [address] [place], [address], 4 18:37:49 CMP, serum or plasma [address] (Lab), [address] [place], [address], 4 18:37:49 glycohemogl obin, total, blood [address] (Lab), [address] [place], [address], 4 18:37:48 glycohemogl obin, total, blood 2022 023 [facility] (Lab), [address] [place], [address], 3 12:30:36 CMP, serum or plasma 2022 023 [facility] (Lab), [address] [place], [address], 3 12:30:36 lipid panel, serum 2022 023 [facility] (Lab), [address] [place], [address], 3 12:30:36 CBC w/ auto diff 2022 023 [facility] (Lab), [address] [place], [address], 3 12:30:36 Referral None recorded. Procedures cerumen removal (PROC) [address] ([facility] Scheduling), [address] [place], [address], 5 14:55:00 cerumen removal (PROC) 2023 024 [email or web address] [facility] ([facility] Scheduling), [address] [place], [address], 4 11:58:39 lexiscan cardiolite stress test (PROC) - approved [id number] 10/26/2022-2022 [facility] [address] [place], [address], 3 09:12:03 Surgeries septoplasty (SURG) 2024 025 [email or web address] Not available 5 09:30:02 Imaging PFT, complete 2022 023 [facility] (Cardiology & Emg), [address], [place], [address], 3 07:43:36 XR, chest, 2 view 2022 023 [facility] ([facility] Call Scheduling), [address] [place], [address], 3 09:47:37 electrocard iogram 2022 023 [facility] Internal Med [address] [facility], [address], [place], [address], 3 14:28:32 Medication Orders azelastine 137 mcg (0.1 %) nasal spray 2023 024 [id number], [address] , [place], [place], [id number], 4 14:29:14 Patient TargetsNo targets recorded. Patient InstructionsNo instructions recorded. Reason for Referral None Reported. Results Created Date Observation Date Name Description Value Unit Range Abnormal Flag Note LastModifiedBy Organization Detail LastModifiedTime 10/27/19 elect janette rao am No observ ation record ed. cyahl [facility] Internal Med [facility] [address], [place], [address], 10/26/2022 12:35:01 10/27/19 23 10/26/2022 elect janette coatsgr am No observ ation record ed. BARCODE [facility] Internal Med [facility] [address], [place], [address], 10/26/2022 15:18:43 11/02/19 23 11/01/2022 XR, chest , 2 view [facility] [address], [place] [address] [phone] Patiparth t Name: URIBRUNILDA HARRYHELENE Johansen L Access ion #: [id number] Sex: M : 1954 9 Locati on: RAD Attend ing Physic antonia: PAT MOBLEY Orderi ng Physic antonia: PAT MOBLEY Exam Date: 023 [...] c proces s. Page 1 of 2 [facility] Patien t Name: URIBRUNILDA HARRYHELENE Johansen L Access ion #: [id number] Sex: M : 1954 9 Exam Date: 7:17 AM Exam Name: XR CHEST 2V Admitt ing Diagno sis(es ): Create d and electr onical ly signed by: Victor M hamilton MD Signed Date: 8:45 AM (CT) Dictat ed by: Victor M hamilton MD DD: 8:45 AM (CT) DT: 8:45 AM (CT) Page [address] (Imaging) [address] [place], [address], 06/01/2023 21:50:35 11/22/19 23 11/21/2022 deshawn can cardi olite stres s test (PROC ) [facility] [address] [place] [address] Patien t Name: LETICIA LEWIS Access ion #: [id number] Sex: M : 1954 5 Locati on: RAD Attend ing Physic antonia: PAT MOBLEY Orderi ng Physic antonia: PAT MOBLEY Exam Date: 11/22/19 7:12 AM Exam Name: [...] Images were obtain ed at rest and immedi ately follow ing admini strati on of Lexisc an. Lexisc an and rest images were perfor med on the same day. Page 1 of 2 [facility] Patien t Name: LETICIA LEWIS L Access ion #: [id number] Sex: M : 1954 5 Exam [...] MD (CT) (CT) Page 2 of 2 [facility] (Imaging) [address] [place], [address], 12/19/2022 09:12:03 06/29/2006/28/2023 PFT, compl ete No observ ation record ed. [email or web address] [facility] [address] [facility] [address], [place], [address], 07/24/2023 11:45:11 07/01/2006/28/2023 PFT, compl ete No observ ation record ed. [email or web address] [facility] [address], [place], [address], 07/24/2023 11:45:11 07/03/20 23 07/03/2023 US, echoc ardio gram No observ ation record ed. [facility] [address], [place], [address], 07/15/2023 14:50:50 07/29/20 23 06/28/2023 PFT, compl ete No observ ation record ed. [email or web address] [facility] [address], [place], [address], 08/24/2023 10:56:48 Result Notes None recorded. Problems Name Problem SNOMED Code Status Onset Date Resolution Date Notes Provider Name and Address Organization Details Recorded Time Chest pain 52835744 Active 2022 Not Available [facility] 3 08:18:36 Thallium stress test abnormal 107109866 Active 2022 Not Available [facility] 3 08:18:36 Impacted cerumen of bilateral ears 53805110584 37984 Active 2023 Jossue Spann MD [address], [address], [place], [address] , [employer] 4 14:28:45 Allergic rhinitis 53354821 Active 2023 Jossue Spann MD [address], [address], [place], [address] , [employer] 4 14:28:55 Deviated nasal septum 449848950 Active 2024 LENARD Moreno [address] [facility], [address], [place], [address] , [employer] 5 11:15:49 Tobacco user 651425882 Active Not Available [facility] 3 08:18:36 Chronic obstructi ve pulmonary disease 70127365 Active Not Available [facility] 3 08:18:36 Respirato ry symptom 567361417 Active Not Available [facility] 3 08:18:36 On examinati on - hoarsenes s Completed Not Available [facility] 3 04:50:23 Prostate specific antigen outside reference range 771123712 Active Not Available [facility] 3 08:18:36 Blood glucose outside reference range 948384195 Active Not Available [facility] 3 08:18:36 Malaise and fatigue 718012011 Completed Not Available [facility] 3 04:50:23 Chest pain 40758170 Completed LEIGHANN Gilbert, [place] - [facility] 3 12:35:41 Type 2 diabetes mellitus without complicat ion 297634757 Active 2021 Not Available [facility] 3 08:18:36 Dyslipide alexis 866108402 Active Not Available [facility] 3 08:18:36 Hypokalem ia 05146295 Completed Not Available [facility] 3 04:50:24 Anxiety 02765230 Active 2019 Not Available [facility] 3 08:18:36 Cough 84430895 Completed Not Available [facility] 3 04:50:24 Hoarse 91918326 Completed Not Available [facility] 3 04:50:24 Essential hypertens ion 39446405 Active Not Available [facility] 3 08:18:36 Snoring 74455742 Active Not Available [facility] 3 08:18:36 Sleep apnea 35723767 Active Not Available [facility] 3 08:18:36 Problem Notes None recorded. Procedures Surgical History Date Name Laterality Status Provider Name and Address Organization Details Recorded Time Vasectomy completed Not Available [facility] 0 10/17/2022 04:42:01 Imaging Results Imaging Date Name Status LastModified by Organization Details LastModified Time 10/26/2022 electrocardiogram completed [facility] Internal Med [address], [place], [address], 10/26/2022 12:35:01 10/26/2022 electrocardiogram completed BARCODE [facility] Internal Med [address], [place], [address], 10/26/2022 15:18:43 11/01/2022 XR, chest, 2 view completed [address] (Imaging) [address] [place], [address], 06/01/2023 21:50:35 11/21/2022 lexiscan cardiolite stress test (PROC) completed [facility] (Imaging) [address] [place], [address], 12/19/2022 09:12:03 06/28/2023 PFT, complete [facility], [place], [address], 07/24/2023 11:45:11 06/28/2023 PFT, [facility] [facility] [address], [place], [address], 07/24/2023 11:45:11 07/03/2023 US, echocardiogram completed [facility] [address], [place], [address], 07/15/2023 14:50:50 06/28/2023 PFT, complete completed [address], [place], [address], 08/24/2023 10:56:48 Procedure Notes None recorded. Medical [...] e Short Pen Needle 31 gauge x / USE TO INJECT OZEMPIC WEEKLY DIRECTED 07/18 [...] Updated DateTime 3 162.56 cm 32.4 kg/m2 03752.9 6 g 97.5 [degF] 78 /min 160 mm[Hg] 98 mm[Hg] LEIGHANN Ventura [place] [facility] 3 12:07:16 Date Recorded Body height Body mass index (BMI) Body weight Body temperature Heart rate Systolic blood pressure Diastolic blood pressure Provider Name and Address Organization Details Last Updated DateTime 3 162.56 cm 30.2 kg/m2 67115.2 6 g 98.7 [degF] 68 /min 120 mm[Hg] 82 mm[Hg] LEIGHANN Ventura [facility] [employer] [facility] 3 11:45:07 Date Recorded Body height Body mass index (BMI) Body weight Body temperature Provider Name and Address Organization Details Last Updated DateTime 10/08/2023 162.56 cm 29.7 kg/m2 89864.2 g 97.7 [degF] Evita Ji RN [facility] [employer] [facility] 10/08/2023 14:05:54 Date Recorded Body height Body mass index (BMI) Body weight Body temperature Body height Body mass index (BMI) Body weight Body temperature Provider Name and Address Organization Details Last Updated DateTime 5 162.56 cm 29.7 kg/m2 54216.4 8 g 97.5 [degF] 162.56 cm 29.7 kg/m2 24227.4 8 g 97.5 [degF] Evita Ji RN [facility] [employer] [facility] 5 12:27:54 Social History Question Answer Notes LastModified by Organization Details LastModified Time Tobacco Smoking Status Former Smoker quit 2013 ELSI Beaulieu, [facility] [employer] [facility] 10/08/2023 13:58:09 Do You Have An Advance Directive? No [id number] Information not available 10/17/2022 What Is Your Level Of Alcohol Consumption? Occasional [id number] Information not available 10/17/2022 Are You Blind Or Do You Have Difficulty Seeing? No Information not available 10/08/2023 What Is Your Level Of Caffeine Consumption? Heavy [id number] Information not available 10/17/2022 How Much Tobacco Do You Chew? None [id number] Information not available 10/17/2022 In The 14 [...] Of Diet Are You Following? REGULAR [id number].[id number] [id number] Information not available 10/17/2022 Which Illicit Or Recreational Drugs Have You Used? None Information not available 10/08/2023 Do You Or Have You Ever Used E-cigarettes Or Vape? Never Used Electronic Cigarettes Information not available 10/08/2023 What Is The Highest Grade Or Level Of School You Have Completed Or The Highest Degree You Have Received? [id number] Information not available 10/08/2023 What Is Your [...] Do You Have A Medical Power Of Transfer Table Operator Helper? No Information not available 10/08/2023 What Was The Date Of Your Most Recent Tobacco Screening? 06/12/2023 Information not available 10/08/2023 Have You Ever Been Counseled For Unhealthy Alcohol Use? No Information not available 10/08/2023 Do You Have Any Pets? Yes Information not available 10/08/2023 What Is Your Relationship Status? [id number].0301 [id number] Information not available 10/17/2022 Do You Use [...] Used Smokeless Tobacco? Never Used Smokeless Tobacco MIGRATION.0301 [id number] Information not available 10/17/2022 Are There Any Smokers In Your House? No Information not available 10/08/2023 How Much Tobacco Do You Smoke? No Was 1ppw MIGRATION.0301 [id number] Information not available 10/17/2022 What Types Of Sporting Activities Do You Participate In? None Information not available 10/08/2023 Do You Feel Stressed (tense, Restless, Nervous, Or Anxious, Or Unable To Sleep At Night)? [id number] Information not available 10/08/2023 Do You Use [...] 10/08/2023 What is your exercise level? None [id number].[id number] Information not available 10/17/2022 Mental Status Question Answer Note LastModified by Organization D etails LastModified Time Do you have difficulty concentrating, remembering or making decisions? Yes Information no t available 10/08/2023 Family History Relationship Description Onset Age of this Age Resolved Age Notes LastModified by Organization Details LastModified Time Mother History of respiratory disease MIGRATION.[id number] [id number] Not available 10/17/2022 04:42:02 Father Malignant tumor of lung MIGRATION.787 [id number] Not available 10/17/2022 04:42:02 Notes:YOUNGER BROTHER WAS [...] ARTERY DISEASE (CAD) N ADDICTION CONCERNS N ENDOMETRIOSIS N Impotence N USE OF BLOOD THINNERS N SKIN [...] GLAUCOMA N FOOT PROBLEM N DIVERTICULITIS N CHICKENPOX N SLEEP APNEA Y ALLERGIES/HAYFEVER N INFECTIOUS DISEASE N HEART ARRHYTHMIA N PROSTATE Y INSOMNIA N HIGH CHOLESTEROL / HYPERLIPIDEMIA Y HYPERTHYROIDISM N EYE PROBLEMS N EDEMA N CHRONIC PAIN SYNDROME N HYPOTHYROIDISM N CAROTID BLOCKAGE N CONSTIPATION N BACK / NECK PROBLEMS N HAVE YOU BEEN HOSPITALIZED OR SEEN IN [facility] IN THE PAST YEAR ? N ATHEROSCLEROSIS N BREAST PROBLEMS N DIALYSIS N ECZEMA N HISTORY WITH COMPLICATIONS WITH ANESTHES IA ? N OSTEOPOROSIS N ARTHRITIS N APPENDICITIS N DIABETES, TYPE N BAD TEETH N ENT N HEARTBURN / REFLUX N AUTISM SPECTRUM DISORDER (ASD) N HEPATITIS / LIVER DISEASE N GOUT N SLEEP DISORDER N ALZHEIMER'S DISEASE N Brain Problems N HERPES N DEMENTIA N HEADACHES/MIGRAINES N SEIZURES/EPILEPSY N VASCULAR DISEASE N PACEMAKER N Blood Disorder N DIZZINESS N HEART DISEASE/HEART PROBLEMS N KIDNEY DISEASE N MULTIPLE SCLEROSIS N CARDIAC ARRHYTHMIA N CANCER: SPECIFY N ANESTHESIA COMPLICATIONS N ATRIAL FIBRILLATION N Gall Stones N PULMONARY EMBOLISM N AUTOIMMUNE DISEASE N Immunizations Vaccine Type Date Status Note Provider Nam e and Address Organization Details Recorded Time Influenza, split virus, trivalent, preservative 3 completed Not Available [facility] 01/17/2023 08:18:36 Influenza, split virus, trivalent, preservative 3 completed Not Available [facility] 01/17/2023 08:18:36 Influenza, high-dose, quadrivalent, PF 2 completed Not Available [facility] 01/17/2023 08:18:36 Influenza, high-dose, quadrivalent, PF 0 completed Not Available [facility] 01/17/2023 08:18:36 Influenza, high-dose, trivalent, PF 9 completed Not Available [facility] 01/17/2023 08:18:36 Influenza, split virus, quadrivalent, PF 8 completed Not Available [facility] 01/17/2023 08:18:36 Influenza, split virus, quadrivalent, PF 6 completed Not Available [facility] 01/17/2023 08:18:36 Influenza, split virus, quadrivalent, PF 8 completed Not Available [facility] 01/17/2023 08:18:36 Influenza, split virus, quadrivalent, PF 5 completed Not Available [facility] 01/17/2023 08:18:36 Influenza, split virus, trivalent, preservative 4 completed Not Available [facility] 01/17/2023 08:18:36 Influenza, high-dose, quadrivalent, PF 3 completed Deborah Mobley MD [address] [facility], [facility] [address], [place], [address], [facility] [employer] 06/15/2023 16:24:17 Past Encounters Encounter ID Performer Location Encounter Start Date Encounter Closed Date Diagnosis/Indication Diagnosis SNOMED-CT Code Diagnosis ICD10 Code Diagnosis Note [id number] [facility] Internal Med [address] [facility] [address] [address] 12/30/2020 00:00:00 01/01/2021 09:26:30 [id number] [facility] Internal Med [facility] [address] [place] [address] [employer] [address] 05/05/2021 00:00:00 05/06/2021 11:41:52 [id number] _ATHENA_M IGRATION_ DEFAULT_1 _1 , 08/16/2021 00:00:00 08/16/2021 10:31:32 [id number] _ATHENA_M IGRATION_ DEFAULT_1 _1 , 08/30/2021 00:00:00 08/30/2021 10:20:11 [id number] [facility] Internal Med [facility] [address] [place] [address] [address]., [address] [address] 10/27/2021 00:00:00 11/12/2021 22:07:07 [id number] [facility] Internal Med [facility] [address] [place] [address] Paula., [address] [address] 04/25/2022 00:00:00 05/27/2022 18:06:16 [id number] [facility] Internal [facility] [address] [place] [address] Paula., [address] [address] 07/11/2022 00:00:00 07/12/2022 13:15:59 [id number] [facility] Internal Med [facility] [address] [place] [address] Paula., [address] [address] 07/18/2022 00:00:00 08/05/2022 16:26:55 [id number] [facility] Internal [facility] [address] [place] [address] Paula., [address] [address] 08/01/2022 00:00:00 08/05/2022 12:09:53 [id number] Deborah Mobley MD [facility] Internal Med [facility] [address] [place] [address] Paula., [address] [address] 10/26/2022 11:46:33 10/26/2022 13:08:36 Essential hypertension 75178196 I10 Chest pain 60321722 R07. 9 Type 2 jaydon betes mellitus without complication 603390187 E11.9 Anxiety 57592046 F41.9 Dyslipidemia 628335792 E 78.5 [id number] Deborah Mobley MD [facility] Internal Med [address] [facility], [address] [place] [address] 06/12/2023 11:21:26 06/12/2023 12:25:33 Type 2 diabetes mellitus without complication 971923009 E11.9 Essential hypertension 45856375 I10 Screening for malignant neoplasm of prostate 867204322 Z12.5 Chronic ob structive pulmonary disease 60388680 J44.9 Administra tion of influenza vaccine 44388802 Z23 [id number] Jossue Spann MD [facility] [place] [address] [place] [address] 10/08/2023 13:56:19 10/08/2023 16:13:18 Impacted cerumen of bilateral ears 3934108408 480542 H61.23 Allergic rhinitis 486074 04 J30.9 [id number] LENARD Moreno [facility] [place] [address] [place] [address] 10/22/2024 10:44:03 10/22/2024 11:18:48 Deviated nasal septum 480639363 J34.[address] Spann for a septoplast y consultati on Impacted c erumen of bilateral ears 2059959495 201837 H61.23 cerumen impaction successful ly removed with irrigation [id number] Jossue Spann MD [facility] [place] [address] [place] [address] 10/22/2024 12:08:18 10/23/2024 08:55:00 Deviated nasal septum 193851832 J34.2 Health Concerns Section Related Observation LastModified by Organization Detai ls LastModified Time None Recorded Concern Status LastModified by Organization Details LastModified Time None Recorded Advance Directives Directive N: Payers Encounter Date Sequence Insurance Name Policy Number Policy Walton Covered Member ID Walton Member ID Guarantor Name 10/26/2022 1 [employer] 680 Sami L Borror [id number] Sami L Borror 06/12/2023 1 [employer] 680 Sami L Borror [id number] Sami L Borror 10/08/2023 1 [employer] 680 Sami L Borror [id number] Sami L Borror 10/22/2024 1 [employer] 680 Sami L Borror [id number] Sami L Borror 10/22/2024 1 [employer] 680 Sami L Borror [id number] Sami L Borror Notes Date Note Type [...] been poor Deborah Mobley MD [address] [address], [place], [address], [employer] [facility] [employer] 10/26/2022 17:08:33 06/12/2023 text/html COPD stable need s PFTs. Hypertension no headache no dizziness diabetes no polyphagia no polydipsia dyslipidemia does try to follow a low-fat Deborah Mobley MD [address] [address], [place], [address], [employer] [facility] [employer] 06/15/2023 16:24:20 10/08/2023 text/html Cerumen and nasa l congestion Jossue Spann MD [address] [address], [place], [address], [employer] [facility] [employer] 10/08/2023 14:29:42 10/22/2024 text/html This patient has a past medical history significant for type 2 diabetes, dyslipidemia, COPD, anxiety, HTN, allergic rhinitis, sleep apnea, and cerumen impaction who presents to the office for a 1 year follow-up for cerumen removal. Reports approximately 1 month ago he developed difficulty hearing from his left ear. Denies use of any dwyt-miw-zeephhx ear wax removal kit. Denies any otalgia. [...] in discussing a septoplasty. LENARD Moreno [address], [facility] [address], [place], [address], [employer] 10/22/2024 11:16:59 10/22/2024 text/html this patient was found to have septal deviation which interferes with his sleep and daily breathing Jossue Spann MD [address], [address], [place], [address], [employer] 10/22/2024 12:59:19
--- OUTSIDE RECORDS SUMMARY | 2024-12-03 09:16 | XMS_ITS | CONTINUITY OF CARE DOCUMENT ---
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 Name Role Phone Abdiaziz Arias MD Unavailable DEBORAH KIRK MD Unavailable [phone] DEBORAH KIRK MD Unavailable [phone] PROBLEMS Condition Status Date Provider Notes Cardiology [...] In-person encounter Office Visit Abdiaziz Arias MD [facility] HFpEF - In-person encounter Office Visit Abdiaziz Arias MD [facility] - In-person encounter Office Visit Abdiaziz Arias MD [facility] - In-person encounter Office Visit Abdiaziz Arias MD [facility] - In-person encounter Office Visit Abdiaziz Arias MD [facility] Shortness of breathSLEEP APNEA - In-person encounter Office Visit Abdiaziz Arias MD [facility] - In-person encounter Office Visit Abdiaziz Arias MD [facility] Cardiology examinationCOPDHTN essentialDiabetes mellitusHyperlipidemiaAbnormal stress testChest pain VITAL SIGNS Date Observation Value Provider Body Mass Index (Ratio) 29.37 kg/m2 Homero Arias MD blood pressure, diastolic 95 mm[Hg] Anita washington [facility] blood pressure, systolic 150 mm[Hg] Jessica [facility] oximetry 95 % Phuong jackie pulse rate 72 /min Phuong [facility] blood pressure, cuff size regular Anita washington [facility] weight E&M 182 [lb_av] Phuong [facility] height E&M 66 [in_i] Phuong [facility] Body Mass Index (Ratio) 29.08 kg/m2 Homero [...] Ja rret blood pressure, systolic 144 mm[Hg] [facility] pulse rate 71 /min Ignacio oxygen saturation, oximetry 96 % respiratory rate E&M 16 /min weight E&M 174 [lb_av] Ignacio height E&M 66 [in_i] Ignacio y Body Mass Index (Ratio) 28.24 kg/m2 Homero Arias MD blood pressure, cuff size regular Ja rr blood pressure, diastolic 93 mm[Hg] Ja rr blood pressure, systolic 148 mm[Hg] [facility] pulse rate 73 /min Ignacio oxygen saturation, oximetry 96 % Ignacio respiratory rate E&M 12 /min Ignacio weight E&M 175 [lb_av] Ignacio height E&M 66 [in_i] Ignacio y Body Mass Index (Ratio) 29.53 kg/m2 Homero Arias MD blood pressure, cuff size regular Ja rr blood pressure, diastolic 91 mm[Hg] Ja rret blood pressure, systolic 161 mm[Hg] [facility] ret pulse rate 71 /min [...] NT-pro BNP 133 LinkLogic <125 [place] [facility] [address] [facility] [place] [address] Nicola Guillermo MD prothrombin time (patient) 10.8 [...] Normal Absolute Neutrophil count 5492 cells/mcL LinkLogic [id number] Normal mean platelet volume 9.3 fL LinkLogic [...] MD drug use no Cece Ventimig fady [facility] alcohol use no Cece Ventimig fady [facility] smoking status Former smoker Ceceyanique Galvan miglia [facility] social history reviewed E&M revi ewed - [...] Payer name Policy type / Coverage type [place] red alliance party ID [employer] insurance [employer] [id number] ADVANCE DIRECTIVES Name Date DISCUSSED - NO DECISION MADE TREATMENT PLAN Date Name Performer [id number],C, H is updated medication list for this problem includes: Amlodipine-olmesartan 5-40 Mg Tablet (Amlodipine-olmesartan) ..... Take 1 tablet by mouth every day Metformin 500 Mg Tablet (Metformin) ..... Take 1 tablet by mouth every [facility] [id number],C,T he patient is using CPAP on a regular basis. The patient has been benefiting from therapy and should continue use. [facility] [id number],C, H is updated medication list for this problem includes: Rosuvastatin 20 Mg Tablet (Rosuvastatin) ..... Take 1 tablet by mouth daily [facility] [id number],C,c ontinues to persist m ay be r/t [...] 1 tablet by mouth daily Cece Sanders [facility] [id number],C,B P elevated again today R eports well controlled at PCP visit last week H ave asked him to monitor at home G oal BP <130/80 W ill return in 3 mos or sooner if needed. Cece Sanders [facility] [id number],C,P atient does not feel like his CPAP is working correctly, will give him Dr. Smith's phone number Abdiaziz Arias MD [id number],C, B P today: 161/91 P rior BP: 161/97 (02/21/2023) Labs Reviewed: C reat: 1.06 (12/28/2022) C hol: 179 (12/28/2022) HDL: 47 (12/28/2022) LDL: 93 MG/DL (CALC) (12/28/2022) T (12/28/2022) Abdiaziz Arias MD [id number],C,Patient feels SOB Abdiaziz Arias MD [id number],B, Abdiaziz Arias MD [id number],C, B P today: 161/97 P rior BP: [...] by mouth twice daily Abdiaziz Arias MD [id number],C,a s in hpi h as minimal disease and should conitnue statin Abdiaziz Arias MD [id number],S, H is updated medication list for this problem includes: Albuterol Sulfate 90 Mcg/actuation Hfa Aerosol Inhaler (Albuterol sulfate) ..... Inhale 2 puffs by mouth every 4 hours as needed Trelegy Ellipta 100-62.5-25 Mcg Blister With Device (Kscpljqeeqy-kyukmeblk-fetcopds) ..... Inhale 1 puff by mouth every day Abdiaziz Arias MD [id number],C, B P today: 163/102 His updated medication list for this problem includes: Clonidine Hcl 0.1 Mg Tablet (Clonidine hcl) ..... Take 1 tablet by mouth twice daily Amlodipine-benazepril 10-20 Mg Capsule (Amlodipine-benazepril) ..... Take 1 capsule by mouth every day Losartan 25 Mg Tablet (Losartan) ..... Take 1 tablet by mouth every day Abdiaziz Arias MD [id number],S, Abdiaziz Arias MD [id number],C,Have recommen ded a cardiac cath Abdiaziz Arias [...] tablet by mouth every day Ceceyanique Sanders [facility] Cardiology:The patie nt is using CPAP on a regular basis. The patient has been benefiting from therapy and should continue use. Ceceyanique Sanders [facility] Cardiology: H is updated medication list for this problem includes: Rosuvastatin 20 Mg Tablet (Rosuvastatin) ..... Take 1 tablet by mouth daily Cece Sanders [facility] Cardiology:continues to persist m ay be r/t [...] 1 tablet by mouth daily Cece Marilyn [facility] Cardiology:BP elevat ed again today R eports well controlled at PCP visit last week H ave asked him to monitor at home G oal BP <130/80 W ill return in 3 mos or sooner if needed. Cece Sanders [facility] Cardiology:Patient d oes not feel like his [...] Trelegy Ellipta 100-62.5-25 Mcg Blister With Device (Vimrjzhqqsk-iidkprpxl-gtrjsrpx) ..... Inhale 1 puff by mouth every [...]
[2024-12-03 09:34] LABS: Estimated Glomerular Filt Rate 31
== END 2024-12-03 08:51 | disposition home or self-care (01) ==
PROVIDERS: PCP Internal Medicine; Visit Provider Nurse Practitioner Family
DX: R31.9 Hematuria, unspecified (principal); N40.0 Benign prostatic hyperplasia without lower urinary tract symptoms; K80.20 Calculus of gallbladder without cholecystitis without obstruction
CPT/HCPCS: 74178; Q9967

== ENCOUNTER 2024-12-17 09:51 | Outpatient (CLI) | payer OTHER, SELFPAY ==
--- NOTE | 2024-12-17 10:17 | ECG_ITS ---
Test Date: 2024-12-17 10:25:46 Measurements Intervals [place] Rate: 76 P: 73 SC: 182 QRS: -38 QRSD: 103 T: 98 QT: 290 QTc: 327 Interpretive Statements SINUS RHYTHM LEFT AXIS DEVIATION [QRS AXIS < -30] MINIMAL VOLTAGE CRITERIA FOR LVH, CONSIDER NORMAL VARIANT [MEETS CRITERIA IN ONE OF: R(aVL), S(V1), R(V5), R(V5/V6)+S(V1)] NONSPECIFIC ST & T-WAVE ABNORMALITY No previous ECG available for comparison Electronically Signed On 12-18-2024 18:58:04 CDT by Ifrah Bryson
--- OUTSIDE RECORDS SUMMARY | 2024-12-17 10:45 | XMS_ITS | CONTINUITY OF CARE DOCUMENT ---
Author Name danial mayrafael Address Unknown Organization [facility] Address [address] [place] [address] Phone [phone] Care Team Providers Care Linen Aide Name Role Phone Abdiaziz Arias MD Unavailable [phone] DEBORAH KIRK MD Unavailable DEBORAH KIRK MD Unavailable [phone] PROBLEMS Condition Status Date Provider Notes Cardiology [...] In-person encounter Office Visit Abdiaziz Arias MD [place] HFpEF - In-person encounter Office Visit Abdiaziz Arias MD [facility] - In-person encounter Office Visit Abdiaziz Arias MD [facility] - In-person encounter Office Visit Abdiaziz Arias MD [facility] - In-person encounter Office Visit Abdiaziz Arias MD [facility] Shortness of breathSLEEP APNEA - In-person encounter Office Visit Abdiaziz Arias MD [facility] - In-person encounter Office Visit Abdiaziz Arias MD [facility] Cardiology examinationCOPDHTN essentialDiabetes mellitusHyperlipidemiaAbnormal stress testChest pain VITAL SIGNS Date Observation Value Provider Body Mass Index (Ratio) 29.37 kg/m2 Homero Arias MD blood pressure, diastolic 95 mm[Hg] Anita washington [facility] blood pressure, systolic 150 mm[Hg] Jessica moya [facility] oxygen saturation, oximetry 95 % Phuong jackie pulse rate 72 /min Phuong [facility] blood pressure, cuff size regular Anita washington [facility] weight E&M 182 [lb_av] Phuong [facility] height E&M 66 [in_i] Phuong [facility] Body Mass Index (Ratio) 29.08 kg/m2 [...] Jordan respiratory rate E&M 12 /min Lizbeth Jrodan height E&M 66 [in_i] Lizbeth Julian Body Mass Index (Ratio) 28.08 kg/m2 Homero Arias MD blood pressure, cuff size regular Ja rret blood pressure, diastolic 90 mm[Hg] Ja rret blood pressure, systolic 144 mm[Hg] [facility] pulse rate 71 /min Ignacio oxygen saturation, oximetry 96 % respiratory rate E&M 16 /min weight E&M 174 [lb_av] Ignacio height E&M 66 [in_i] Ignacio y Body Mass Index (Ratio) 28.24 kg/m2 Homero Arias MD blood pressure, cuff size regular Ja rr blood pressure, diastolic 93 mm[Hg] Ja rr blood pressure, systolic 148 mm[Hg] [facility] pulse rate 73 /min Ignacio oxygen saturation, oximetry 96 % Ignacio respiratory rate E&M 12 /min Ignacio weight E&M 175 [lb_av] Ignacio height E&M 66 [in_i] Ignacio y Body Mass Index (Ratio) 29.53 kg/m2 Homero Arias MD blood pressure, cuff size regular Ja rr blood pressure, diastolic 91 mm[Hg] Ja rret blood pressure, systolic 161 mm[Hg] [facility] ret pulse rate 71 /min Ignacio y [...] NT-pro BNP 133 LinkLogic <125 [place] [facility] [address] [place] [address] Nicola Guillermo MD prothrombin time (patient) 10.8 [...] Normal Absolute Neutrophil count 5492 cells/mcL [employer]Logic [id number] Normal mean platelet volume 9.3 fL LinkLogic [...] MD drug use no Cece Ventimig fady [facility] alcohol use no Cece Ventimig fady [facility] smoking status Former smoker Ceceyanique Galvan miglia [facility] social history reviewed E&M revi ewed [...] Payer name Policy type / Coverage type [place] red alliance party ID IPMG [employer] insurance [employer] [id number] ADVANCE DIRECTIVES Name Date DISCUSSED - NO DECISION MADE TREATMENT PLAN Date Name Performer [id number],C, H is updated medication list for this problem includes: Amlodipine-olmesartan 5-40 Mg Tablet (Amlodipine-olmesartan) ..... Take 1 tablet by mouth every day Metformin 500 Mg Tablet (Metformin) ..... Take 1 tablet by mouth every day [facility] [id number],C,T he patient is using CPAP on a regular basis. The patient has been benefiting from therapy and should continue use. [facility] [id number],C, H is updated medication list for this problem includes: Rosuvastatin 20 Mg Tablet (Rosuvastatin) ..... Take 1 tablet by mouth daily [facility] [id number],C,c ontinues to persist m ay be r/t [...] 1 tablet by mouth daily Cece Sanders [facility] [id number],C,B P elevated again today R eports well controlled at PCP visit last week H ave asked him to monitor at home G oal BP <130/80 W ill return in 3 mos or sooner if needed. Cece Sanders [facility] [id number],C,P atient does not feel like his CPAP is working correctly, will give him Dr. Smith's phone number Abdiaziz Arias MD [id number],C, B P today: 161/91 P rior BP: 161/97 (02/21/2023) Labs Reviewed: C reat: 1.06 (12/28/2022) C hol: 179 (12/28/2022) HDL: 47 (12/28/2022) LDL: 93 MG/DL (CALC) (12/28/2022) T (12/28/2022) Abdiaziz Arias MD [id number],C,Patient feels SOB Abdiaziz Arias MD [id number],B, Abdiaziz Arias MD [id number],C, B P today: 161/97 P rior BP: [...] by mouth twice daily Abdiaziz Arias MD [id number],C,a s in hpi h as minimal disease and should conitnue statin Abdiaziz Arias MD [id number],S, H is updated medication list for this problem includes: Albuterol Sulfate 90 Mcg/actuation Hfa Aerosol Inhaler (Albuterol sulfate) ..... Inhale 2 puffs by mouth every 4 hours as needed Trelegy Ellipta 100-62.5-25 Mcg Blister With Device (Glauhmasfra-okwkgjtpd-gxzdvfxc) ..... Inhale 1 puff by mouth every day Abdiaziz Arias MD [id number],C, B P today: 163/102 His updated medication list for this problem includes: Clonidine Hcl 0.1 Mg Tablet (Clonidine hcl) ..... Take 1 tablet by mouth twice daily Amlodipine-benazepril 10-20 Mg Capsule (Amlodipine-benazepril) ..... Take 1 capsule by mouth every day Losartan 25 Mg Tablet (Losartan) ..... Take 1 tablet by mouth every day Abdiaziz Arias MD [id number],S, Abdiaziz Arias MD [id number],C,Have recommen ded a cardiac cath Abdiaziz Arias [...] tablet by mouth every day Ceceyanique Sanders [facility] Cardiology:The patie nt is using CPAP on a regular basis. The patient has been benefiting from therapy and should continue use. Ceceyanique Sanders [facility] Cardiology: H is updated medication list for this problem includes: Rosuvastatin 20 Mg Tablet (Rosuvastatin) ..... Take 1 tablet by mouth daily Cece Sanders [facility] Cardiology:continues to persist m ay be [...] 1 tablet by mouth daily Cece Marilyn [facility] Cardiology:BP elevat ed again today R eports well controlled at PCP visit last week H ave asked him to monitor at home G oal BP <130/80 W ill return in 3 mos or sooner if needed. Cece Sanders [facility] Cardiology:Patient d oes not feel like [...] Trelegy Ellipta 100-62.5-25 Mcg Blister With Device (Iplcunhfycy-mbjnyfxoq-slhqhggc) ..... Inhale 1 puff by mouth every [...]
--- OUTSIDE RECORDS SUMMARY | 2024-12-17 10:45 | XMS_ITS | Clinical Summary ---
Author Organization [employer] [facility] Address [address] [address] Phone Care Team Providers Care Consultant Dietitian Name Role Phone Spencer Mobley MD Primary Care Provider [phone] Allergies No known active allergies Medications albuterol [...] 1 (one) time each day Active Multiple Vitamins-Mineral s (PRESERVISION AREDS PO) 2 (two) times a day 8 Active rosuvastatin (CRESTOR) 20 MG tablet Take 1 tablet by mouth 1 (one) time each day Active Fluticasone-Umec lidin-Vilant (Trelegy Ellipta) 100-62.5-25 MCG/ACT aerosol powder Inhale 1 puff 1 (one) time each day Active FLUoxetine (PROzac) 40 MG capsule Take 40 mg by mouth 1 (one) time each day Active AZELASTINE HCL NA Administer into affected nostril(s) 2 (two) times a day Active amLODIPine-olmes juvencio (CLAUDETTE) 5-40 MG per tablet Take 1 [...] the morning 30 tablet 5 5 Active Active Problems Problem Noted Date Diagnosed Date Chronic obstructive pulmonary disease 02/03/2024 Dyslipidemia 02/03/2024 Essential hypertension 02/03/2024 Hypokalemia 02/03/2024 Tobacco user 02/03/2024 Sleep apnea 02/03/2024 Type 2 diabetes mellitus without complication Anxiety 03/13/2020 Chronic kidney disease stage 3B Diabetes mellitus without me ntion of complication, type II or unspecified type, not stated as uncontrolled Encounters Date Type Department Care Team Description 11/09/2024 Refill [facility], [address] [address] Abby Anthony CMA 09/25/2024 Refill [facility], [address] [address] Abby Anthony CMA from Last 3 Months [...] change in test platforms from the Bhakta Passenger Attendant to the Van norma c503 may have shifted HbA1c results compared to historical results. Based on laboratory validation testing conducted at [facility], the Van platform relative to the Bhakta [...] AM CDT 02/05/2024 7:41 AM CDT Narrative [facility] - 02/06/2024 11:01 AM CDT FASTING:YES FASTING: YES Resulting Agency Comment Performing Organization Information: Site ID: SL Name: 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
--- OUTSIDE RECORDS SUMMARY | 2024-12-17 10:45 | XMS_ITS | Data Portability ---
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 Name Role Phone DEBORAH MOBLEY Primary Care Provider Assessment Encounter Date Assessment Date Assessment LastModified by Organization Details LastModified Time 10/26/2022 10/26/2022 Blood pressure u p a little bit has not taking his medication blood work been ordered 2 week follow-up eat better take medications medications as prescribed stress test if chest pain recurs ER [email or web address] Not available 10/26/2022 17:08:11 06/12/2023 06/12/2023 Blood work Target for A1c LDL blood pressure discussed Regular exercise Stay up-to-date on immunization Consult notes reviewed diagnosis assessment plan discussed. Follow-up in 4 month Heart catheterization nonobstructive disease Not available 06/15/2023 16:23:36 Plan of Treatment Reminders Order Date Submit Date Provider Last Modified By Organization Details Last Modified Time Details Appointments Surgery 2024 09:30A M Jossue Spann MD Not available Not available Not available Post-Op 15 2024 09:45A M LENARD Moreno Not available Not available Not available Lab PSA, total, serum or plasma 2022 023 [email or web address] [facility] (Lab), [address] [place], [address], 05/07/2024 18:37:49 CBC w/ auto diff 2022 023 [email or web address] [facility] (Lab), [address] [place], [address], 05/07/2024 18:37:49 lipid panel, serum [address] (Lab), [address] [place], [address], 05/07/2024 18:37:49 CMP, serum or plasma [address] (Lab), [address] [place], [address], 05/07/2024 18:37:49 glycohemo globin, total, blood [address] (Lab), [address] [place], [address], 05/07/2024 18:37:48 glycohemo globin, total, blood 2022 023 [facility] (Lab), [address] [place], [address], 10/30/2022 12:30:36 CMP, serum or plasma 2022 023 [facility] (Lab), [address] [place], [address], 10/30/2022 12:30:36 lipid panel, serum 2022 023 [facility] (Lab), [address] [place], [address], 10/30/2022 12:30:36 CBC w/ auto diff 2022 023 [facility] (Lab), [address] [place], [address], 10/30/2022 12:30:36 Referral None recorded. Procedures cerumen removal (PROC) 2024 025 2 [facility] (One Call Scheduling), [address] [place], [address], 11/27/2024 14:55:00 cerumen removal (PROC) 2023 024 [email or web address] [facility] ([facility] Call Scheduling), [address] [place], [address], 02/17/2024 11:58:39 lexiscan cardiolit e stress test (PROC) - approved [id number] 10/26/2022 -2022 023 cyl [facility] (One Call Scheduling), [address] [place], [address], 12/19/2022 09:12:03 Surgeries septoplas ty (SURG) 2024 025 [email or web address] Not available 10/23/2024 09:30:02 Imaging PFT, complete 2022 023 [facility] (Cardiology & Emg), [address], [place], [address], 06/29/2023 07:43:36 XR, chest, 2 view 2022 023 [facility] (One Call Scheduling), [address] [place], [address], 11/01/2022 09:47:37 electroca rdiogram 2022 023 [facility] Internal Med [address] [facility], [address], [place], [address], 10/26/2022 14:28:32 Medication Orders azelastin e 137 mcg (0.1 %) nasal spray 2023 024 [id number], [address] , [place], [place], [id number], 10/08/2023 14:29:14 Patient TargetsNo targets recorded. Patient InstructionsNo instructions recorded. Reason for Referral None Reported. Results Created Date Observation Date Name Description Value Unit Range Abnormal Flag Note LastModifiedBy Organization Detail LastModifiedTime 10/27/19 [place] dio am No observ ation record ed. cyahl [facility] Internal Med [facility] [address] [facility], [place], [address], 10/26/2022 12:35:01 10/27/19 23 10/26/2022 [place] dio am No observ ation record ed. BARCODE [facility] Internal Med [facility] [address] [facility] [address], [place], [address], 10/26/2022 15:18:43 11/02/19 23 11/01/2022 XR, chest , 2 view [facility] [address] [place] [address] Patien t Name: LETICIA LEWIS L Access ion #: [id number] Sex: M : 1954 9 Locati [...] c proces s. Page 1 of 2 [facility] Patien t Name: LETICIA LEWIS Access ion #: [id number] Sex: M : 1954 9 Exam Date: 7:17 AM Exam Name: XR CHEST 2V Admitt ing Diagno sis(es ): Create d and electr onical ly signed by: Victor M hamilton MD Signed Date: 8:45 AM (CT) Dictat ed by: Victor M hamilton MD DD: 8:45 AM (CT) DT: 8:45 AM (CT) Page [address] (Imaging) [address] [place], [address], 06/01/2023 21:50:35 11/22/19 23 11/21/2022 [email or web address] can cardi olite stres s test (PROC ) [facility] [address] [place] [address] Patiparth t Name: LETICIA LEWIS Access ion #: [id number] Sex: M : 1954 5 Locati [...] Images were obtain ed at rest and luis edgar follow ing admini strati on of Lexisc an. Lexisc an and rest images were perfor med on the same day. Page 1 of 2 [facility] Patien t Name: LETICIA LEWIS L Access ion #: [id number] Sex: M : 1954 5 Exam [...] 11/22/19 11:44 AM (CT) Dictat ed by: oRb green MD (CT) (CT) Page 2 of 2 [facility] (Imaging) [address] [place], [address], 12/19/2022 09:12:03 06/29/2006/28/2023 PFT, compl ete No observ ation record ed. [facility] [email or web address] [facility] [address], [place], [address], 07/24/2023 11:45:11 07/01/2006/28/2023 PFT, compl ete No observ ation record ed. [email or web address] [facility] [address], [place], [address], 07/24/2023 11:45:11 07/03/2007/03/2023 US, echoc ardio gram No observ ation record ed. cyahl [facility] [address], [place], [address], 07/15/2023 14:50:50 07/29/2006/28/2023 PFT, compl ete No observ ation record ed. [email or web address] [place] [address], [place], [address], 08/24/2023 10:56:48 Result Notes None recorded. Problems Name Problem SNOMED Code Status Onset Date Resolution Date Notes Provider Name and Address Organization Details Recorded Time Chest pain 03505008 Active 2022 Not Available [facility] 3 08:18:36 Thallium stress test abnormal 197347803 Active 2022 Not Available [facility] 3 08:18:36 Impacted cerumen of bilateral ears 32958232484 15156 Active 2023 Jossue Spann MD [address] [facility], [place] [address], [place], [address] , [employer] 4 14:28:45 Allergic rhinitis 73682463 Active 2023 Jossue Spann MD [address] [facility], [facility] [address], [place], [address] , [employer] 4 14:28:55 Deviated nasal septum 169732925 Active 2024 LENARD Moreno [address] [facility], [address], [place], [address] , [employer] 5 11:15:49 Tobacco user 068951302 Active Not Available [facility] 3 08:18:36 Chronic obstructi ve pulmonary disease 81088807 Active Not Available [facility] 3 08:18:36 Respirato ry symptom 948326393 Active Not Available [facility] 3 08:18:36 On examinati on - hoarsenes s Completed Not Available [facility] 3 04:50:23 Prostate specific antigen outside reference range 700340202 Active Not Available [facility] 3 08:18:36 Blood glucose outside reference range 930345216 Active Not Available [facility] 3 08:18:36 Malaise and fatigue 737098669 Completed Not Available [facility] 3 04:50:23 Chest pain 91006035 Completed LEIGHANN Gilbert [place] - [facility] [employer] [facility] 3 12:35:41 Type 2 diabetes mellitus without complicat ion 679373059 Active 2021 Not Available [facility] 3 08:18:36 Dyslipide alexis 885435410 Active Not Available [facility] 3 08:18:36 Hypokalem ia 81420542 Completed Not Available [facility] 3 04:50:24 Anxiety 14315341 Active 2019 Not Available [facility] 3 08:18:36 Cough 50021692 Completed Not Available [facility] 3 04:50:24 Hoarse 79610398 Completed Not Available [facility] 3 04:50:24 Essential hypertens ion 43905655 Active Not Available [facility] 3 08:18:36 Snoring 76625725 Active Not Available [facility] 3 08:18:36 Sleep apnea 59968499 Active Not Available [facility] 3 08:18:36 Problem Notes None recorded. Procedures Surgical History Date Name Laterality Status Provider Name and Address Organization Details Recorded Time Vasectomy completed Not Available [facility] 0 10/17/2022 04:42:01 Imaging Results Imaging Date Name Status LastModified by Organization Details LastModified Time 10/26/2022 electrocardiogram completed [facility] Internal Med [address] [facility], [place], [address], 10/26/2022 12:35:01 10/26/2022 electrocardiogram completed [facility] Internal Med [address] [facility], [place], [address], 10/26/2022 15:18:43 11/01/2022 XR, chest, [address] view [address] (Imaging) [address] [place], [address], 06/01/2023 21:50:35 11/21/2022 lexiscan cardiolite stress test (PROC) completed [facility] (Imaging) [address] [place], [address], 12/19/2022 09:12:03 06/28/2023 PFT, complete completed [facility], [place], [address], 07/24/2023 11:45:11 06/28/2023 PFT, complete [facility] [facility] [address], [place], [address], 07/24/2023 11:45:11 07/03/2023 US, echocardiogram completed [facility] [address], [place], [address], 07/15/2023 14:50:50 06/28/2023 PFT, complete completed [address], [place], [address], 08/24/2023 10:56:48 Procedure Notes None recorded. Medical [...] Updated DateTime 3 162.56 cm 32.4 kg/m2 37334.9 6 g 97.5 [degF] 78 /min 160 mm[Hg] 98 mm[Hg] Shae Valderrama BCAna Cristina [facility] [employer] [facility] 3 12:07:16 Date Recorded Body height Body mass index (BMI) Body weight Body temperature Heart rate Systolic blood pressure Diastolic blood pressure Provider Name and Address Organization Details Last Updated DateTime 3 162.56 cm 30.2 kg/m2 01048.2 6 g 98.7 [degF] 68 /min 120 mm[Hg] 82 mm[Hg] LEIGHANN Ventura [facility] [employer] [facility] 3 11:45:07 Date Recorded Body height Body mass index (BMI) Body weight Body temperature Provider Name and Address Organization Details Last Updated DateTime 10/08/2023 162.56 cm 29.7 kg/m2 76937.2 g 97.7 [degF] Evita Ji RN [facility] [employer] [facility] 10/08/2023 14:05:54 Date Recorded Body height Body mass index (BMI) Body weight Body temperature Body height Body mass index (BMI) Body weight Body temperature Provider Name and Address Organization Details Last Updated DateTime 5 162.56 cm 29.7 kg/m2 39545.4 8 g 97.5 [degF] 162.56 cm 29.7 kg/m2 86289.4 8 g 97.5 [degF] Evita Ji RN [facility] [employer] [facility] 5 12:27:54 Social History Question Answer Notes LastModified by Organization Details LastModified Time Tobacco Smoking Status Former Smoker quit 2013 ELSI Beaulieu [facility] [employer] [facility] 10/08/2023 13:58:09 Do You Have An Advance Directive? No [id number] Information not available 10/17/2022 What Is Your Level Of Alcohol Consumption? Occasional [id number] Information not available 10/17/2022 Are You Blind [...] Of Diet Are You Following? REGULAR [id number] Information not available 10/17/2022 Which Illicit Or Recreational Drugs Have You Used? None Information not available 10/08/2023 Do You Or Have You Ever Used E-cigarettes Or Vape? Never Used Electronic Cigarettes Information not available 10/08/2023 What Is The Highest Grade Or Level Of School You Have Completed Or The Highest Degree You Have Received? [id number] Information not available 10/08/2023 What Is Your [...] Do You Have A Medical Power Of Elevator Worker? No Information not available 10/08/2023 What Was The Date Of Your Most Recent Tobacco Screening? 06/12/2023 Information not available 10/08/2023 Have You Ever Been Counseled For Unhealthy Alcohol Use? No Information not available 10/08/2023 Do You Have Any Pets? Yes Information not available 10/08/2023 What Is Your Relationship Status? [id number] Information not available 10/17/2022 Do You Use [...] Smokeless Tobacco? Never Used Smokeless Tobacco [id number].030 [id number] Information not available 10/17/2022 Are There Any Smokers In Your House? No Information not available 10/08/2023 How Much Tobacco Do You Smoke? No Was 1ppw MIGRATION.030 [id number] Information not available 10/17/2022 What Types Of Sporting Activities Do You Participate In? None Information not available 10/08/2023 Do You Feel Stressed (tense, Restless, Nervous, Or Anxious, Or Unable To Sleep At Night)? [id number] Information not available 10/08/2023 Do You Use [...] 10/08/2023 What is your exercise level? None [id number] Information not available 10/17/2022 Mental Status Question Answer Note LastModified by Organization D etails LastModified Time Do you have difficulty concentrating, remembering or making decisions? Yes Information no t available 10/08/2023 Family History Relationship Description Onset Age of this Age Resolved Age Notes LastModified by Organization Details LastModified Time Mother History of respiratory disease [id number] Not available 10/17/2022 04:42:02 Father Malignant neoplasm of lung [id number] Not available 10/17/2022 04:42:02 Notes:YOUNGER BROTHER WAS ES SENTIALLY DEAF Medical History Condition Response NERVE DISEASE N BLINDNESS N RHEUMATIC FEVER N KIDNEY STONES N BLADDER PROBLEMS N MRSA N OTHER # 1 Y POLIO N LUNG DISEASE/DISORDER N HISTORY OF DRUG ABUSE N COPD Y RADIATION / CHEMOTHERAPY N Other # 2 N BLOOD DISEASES N [...] HAVE YOU BEEN HOSPITALIZED OR SEEN IN [facility] ER IN THE PAST YEAR ? N [...] virus, trivalent, preservative 3 completed Not Available [facility] 01/17/2023 08:18:36 Influenza, split virus, trivalent, preservative 3 completed Not Available [facility] 01/17/2023 08:18:36 Influenza, high-dose, quadrivalent, PF 2 completed Not Available [facility] 01/17/2023 08:18:36 Influenza, high-dose, quadrivalent, PF 0 completed Not Available [facility] 01/17/2023 08:18:36 Influenza, high-dose, trivalent, PF 9 completed Not Available [facility] 01/17/2023 08:18:36 Influenza, split virus, quadrivalent, PF 8 completed Not Available [facility] 01/17/2023 08:18:36 Influenza, split virus, quadrivalent, PF 6 completed Not Available [facility] 01/17/2023 08:18:36 Influenza, split virus, quadrivalent, PF 8 completed Not Available [facility] 01/17/2023 08:18:36 Influenza, split virus, quadrivalent, PF 5 completed Not Available [facility] 01/17/2023 08:18:36 Influenza, split virus, trivalent, preservative 4 completed Not Available [facility] 01/17/2023 08:18:36 Influenza, high-dose, quadrivalent, PF 3 completed Deborah Mobley MD [address] [place] [address], [place] [address], [place], [address], [place] [facility] 06/15/2023 16:24:17 Past Encounters Encounter ID Performer Location Encounter Start Date Encounter Closed Date Diagnosis/Indication Diagnosis SNOMED-CT Code Diagnosis ICD10 Code Diagnosis Note [id number] Deborah Mobley MD [facility] Internal Med [facility] [address] [place] [address] [address] 12/30/2020 00:00:00 01/01/2021 09:26:30 [id number] Deborah Mobley MD [facility] Internal Med [facility] [address] [address] 05/05/2021 00:00:00 05/06/2021 11:41:52 [id number] [facility] _ATHENA_M IGRATION_ DEFAULT_1 _1 , 08/16/2021 00:00:00 08/16/2021 10:31:32 [id number] [facility] _ATHENA_M IGRATION_ DEFAULT_1 _1 , 08/30/2021 00:00:00 08/30/2021 10:20:11 [id number] Deborah Mobley MD [facility] Internal Med [facility] 15 [address] [facility] [address] 10/27/2021 00:00:00 11/12/2021 22:07:07 [id number] Deborah Mobley MD [facility] Internal Med [facility] 15 [address] [facility] [address] 04/25/2022 00:00:00 05/27/2022 18:06:16 [id number] Deborah Mobley MD [facility] Internal Med [facility] 15 [address] [facility] [address] 07/11/2022 00:00:00 07/12/2022 13:15:59 [id number] Deborah Mobley MD [facility] Internal Med [facility] [address] [place] [address]., [address] [address] 07/18/2022 00:00:00 08/05/2022 16:26:55 [id number] Deborah Mobley MD [facility] Internal Med [facility] 15 [address] [facility] [address] 08/01/2022 00:00:00 08/05/2022 12:09:53 [id number] Deborah Mobley MD [facility] Internal Med [facility] [address] [facility] [address] 10/26/2022 11:46:33 10/26/2022 13:08:36 Essential hypertension 87507487 I10 Chest pain 00430733 R07. 9 Type 2 jaydon betes mellitus without complication 453680625 E11.9 Anxiety 88005961 F41.9 Dyslipidemia 488506017 E 78.5 [id number] Deborah Mobley MD [facility] Internal Med [facility] [address] [address] 06/12/2023 11:21:26 06/12/2023 12:25:33 Type 2 diabetes mellitus without complication 603191167 E11.9 Essential hypertension 77126996 I10 Screening for malignant neoplasm of prostate 768794032 Z12.5 Chronic ob structive pulmonary disease 30485420 J44.9 Administra tion of influenza vaccine 55492993 Z23 [id number] Jossue Spann MD [facility] [place] [address] [place] [address] 10/08/2023 13:56:19 10/08/2023 16:13:18 Impacted cerumen of bilateral ears 1516135742 598796 H61.23 Allergic rhinitis 308172 04 J30.9 [id number] Jossue Spann MD [facility] [place] [address] [place] [address] 10/22/2024 10:44:03 10/22/2024 11:18:48 Deviated nasal septum 027420188 J34.[address] Spann for a septoplast y consultati on Impacted c erumen of bilateral ears 9791284912 651292 H61.23 cerumen impaction successful ly removed with irrigation [id number] Jossue Spann MD [facility] [place] [address] [place] [address] 10/22/2024 12:08:18 10/23/2024 08:55:00 Deviated nasal septum 141446035 J34.2 Health Concerns Section Related Observation LastModified by Organization Detai ls LastModified Time None Recorded Concern Status LastModified by Organization Details LastModified Time None Recorded Advance Directives Directive N: Payers Encounter Date Sequence Insurance Name Policy Number Policy Walton Covered Member ID Walton Member ID Guarantor Name 10/26/2022 1 [employer] 680 Sami L Borror [id number] Sami L Borror 06/12/2023 1 [employer] 680 Sami L Borror [id number] Sami L Borror 10/08/2023 1 [employer] 680 Sami L Borror [id number] Sami L Borror 10/22/2024 1 [employer] 680 Sami L Borror [id number] Sami L Borror 10/22/2024 1 [employer] 680 Sami L Borror [id number] Sami L Borror Notes Date Note Type [...] diet has been poor Deborah Mobley MD [address] [place] [address], [place], [address], [employer] 10/26/2022 17:08:33 06/12/2023 text/html COPD stable need s PFTs. Hypertension no headache no dizziness diabetes no polyphagia no polydipsia dyslipidemia does try to follow a low-fat Deborah Mobley MD [address], [place], [address], [employer] 06/15/2023 16:24:20 10/08/2023 text/html Cerumeisrael Spann MD [address], [place], [address], [employer] [facility] [employer] 10/08/2023 14:29:42 10/22/2024 text/html This patient has a past medical history significant for type 2 diabetes, dyslipidemia, COPD, anxiety, HTN, allergic rhinitis, sleep apnea, and cerumen impaction who presents to the office for a 1 year follow-up for cerumen removal. Reports approximately 1 month ago he developed difficulty hearing from his left ear. Denies use of any mdpo-[id number] ear wax removal kit. Denies any otalgia. [...] in discussing a septoplasty. LENARD Moreno [address] [facility], [place], [address], [employer] [facility] [employer] 10/22/2024 11:16:59 10/22/2024 text/html this patient was found to have septal deviation which interferes with his sleep and daily breathing Jossue Spann MD [address], [place], [address], [employer] 10/22/2024 12:59:19
--- OUTSIDE RECORDS SUMMARY | 2024-12-17 10:46 | XMS_ITS | Data Portability ---
Author Organization [facility] WILMER[facility]icia Address [address] [facility] [place] [address] Assessment Encounter Date Assessment Date Assessment LastModified [...] he can have cataract surgery if needed [email or web address] Not available 12/16/2023 21:02:02 03/26/2024 03/26/2024 blood work for biochemical management of disease processes and medications. Follow up with me in 4 months colonoscopy all questions answered Not available 04/04/2024 15:38:06 09/03/2024 09/03/2024 reviewed [...] were needed. Return to clinic 4 months' Not available 09/03/2024 21:06:07 Plan of Treatment Reminders Order Date Submit Date Provider Last Modified By Organization Details Last Modified Time Details Appointments ANY 15 2024 03:00P Kenneth Mobley MD Not available Not available Not available Lab PSA, serum or plasma 2023 024 ST[facility], [address], [place], [address], 04/28/2024 14:17:45 HbA1c (hemoglob in A1c), blood 2023 024 ST[facility]Y [facility], [address], [place], [address], 04/28/2024 14:17:45 albumin/c reatinine , mass ratio, urine 2023 024 [facility], [address], [place], [address], 04/28/2024 14:17:45 CMP, serum or plasma 2023 024 [facility], [address], [place], [address], 04/28/2024 14:17:45 CBC w/ auto diff 2023 024 [facility], [address], [place], [address], 04/28/2024 14:17:45 lipid panel, serum 2023 024 [facility], [address], [place], [address], 04/27/2024 09:38:10 HbA1c (hemoglob in A1c), blood 2023 024 ST[facility], [address], [address], [place], [address], 12/10/2023 14:44:24 CBC w/ auto diff 2023 024 [facility], [address], [address], [place], [address], 12/10/2023 14:44:24 lipid panel, serum 2023 024 [facility], [address], [place], [address], 12/10/2023 14:44:24 CMP, serum or plasma 2023 024 [facility], [address], [address], [place], [address], 12/10/2023 14:44:24 Referral None recorded. Procedures colonosco py screening (PROC) 2023 024 [facility], [address], [address], [place], [address], 12/02/2024 10:41:36 Surgeries None recorded. Imaging None recorded. Medication Orders rosuvasta tin 20 mg tablet 2024 025 [email or web address] [id number], [address], [place], [place], [id number], 09/03/2024 17:33:30 OneTouch Verio test strips 2023 024 [email or web address] [facility], [address], [place], [place], [id number], 11/28/2023 11:11:15 Patient TargetsNo targets recorded. Patient Instructions Encounter Date Encounter Id Patient Instructions Last Modified By Organization Details Last Modified Time 03/26/2024 [id number] A healthy lifestyle: care instructions [email or web address] Not available 03/26/2024 13:22:13 09/03/2024 [id number] A healthy lifestyle: care instructions Not available 09/03/2024 17:33:30 Reason for Referral [...] Organi zation Inform ation: Site ID: Name: [employer] Addres s: [id number] [place] [address] Direct or: Kaylene-L ieu Thi Vo Perfo rming Organ izati on Infor el n: Site ID: Name: [employer] [facility]re ss: [id number] [place] [place] [address] Direc tor: Kaylene- Lieu Thi Vo Not Available Not Available 11/10/2024 16:59:39 02/05/20 24 02/06/2024 Hemog lobin A1c/H emogl obin. total in Blood interpretati on and review of laboratory results Abnorm al Not Available Not Available 16:59:39 05/15/20 24 05/15/2024 garo rao am, routruben ne ECG, 12 leads min; inter preta tion and repor t (PROC ) No observ ation record ed. [facility] [address], [place], [address], 05/18/2024 09:28:12 05/21/20 24 05/21/2024 US, renal No observ ation record ed. [address], [place], [address], 05/27/2024 23:15:36 11/27/19 25 11/26/2024 trans -thor acic echoc ardio gram (TTE) (PROC ) No observ ation record ed. [email or web address] [facility] [address], [place], [address], 11/27/2024 10:01:42 12/04/19 25 12/03/2024 CT, abdom en + pelvi s, w/wo contr ast No observ ation record ed. [facility] [address], [place], [address], 12/04/2024 14:41:37 Result Notes None recorded. Problems Name Problem SNOMED Code Status Onset Date Resolution Date Notes Provider Name and Address Organization Details Recorded Time Type 2 diabetes mellitus 78977881 Active 2023 Derek Anderson MA null, [place] - [facility] 4 10:56:44 Essential hypertension 89373006 Active 2023 Derek Anderson MA null, [place] - [facility] 4 10:36:01 Hyperlipidemia 13436481 Active 2023 Derek Anderson MA null, [place] - [facility] 4 10:36:02 Pneumococcal vaccination declined 457561653 Active 2024 Spencer Mobley MD Attn: Prabhakar draper,[address] [facility], [place], [address], [facility] - [facility] 5 21:02:35 Problem Notes None recorded. Procedures Surgical History Date Name Laterality Status Provider Name and Address Organization Details Recorded Time Eye Surgery completed Antonia Botello MA [place] - [facility] 11/28/2023 10:32:14 Vasectomy completed Antonia Botello MA [place] - [facility] 11/28/2023 10:32:18 Imaging Results Imaging Date Name Status LastModified by Organization Details LastModified Time 05/15/2024 electrocardiogram, routine ECG, 12 leads min; interpretation and report (PROC) completed [facility] [address], [place], [address], 05/18/2024 09:28:12 05/21/2024 US, renal completed [address], [place], [address], 05/27/2024 23:15:36 11/26/2024 trans-thoracic echocardiogram (TTE) (PROC) completed [email or web address] [facility] [address], [place], [address], 11/27/2024 10:01:42 12/03/2024 CT, abdomen + pelvis, w/wo contrast completed [facility] [address] [facility] [address], [place], [address], 12/04/2024 14:41:37 Procedure Notes None recorded. Medical Equipment None [...] 2 PUFFS BY MOUTH EVERY 4 HOURS 2024 active Not Available Not Available Not Avai lable fluticasone propionate 50 mcg/actuatio n nasal spray,suspen [...] Address Organization Details Last Updated DateTime 4 24915.8 8 g 28.8 kg/m2 167.64 cm 62 /min 98.2 [degF] 98 % 98 % 142 mm[Hg] 90 mm[Hg] Antonia Botello MA [facility] 4 10:43:24 Date Recorded Body height Body mass index (BMI) Body weight Heart rate Oxygen saturation Oxygen saturation in Arterial blood by Pulse oximetry Systolic blood pressure Diastolic blood pressure Provider Name and Address Organization Details Last Updated DateTime 4 167.64 cm 28.9 kg/m2 43981.0 3 g 70 /min 97 % 97 % 136 mm[Hg] 78 mm[Hg] Alysa Linder MA [facility] 4 10:10:06 Date Recorded Body height Body mass index (BMI) Body weight Heart rate Oxygen saturation Oxygen saturation in Arterial blood by Pulse oximetry Systolic blood pressure Diastolic blood pressure Provider Name and Address Organization Details Last Updated DateTime 5 167.64 cm 29.2 kg/m2 32298.1 4 g 90 /min 95 % 95 % 124 mm[Hg] 68 mm[Hg] Deanna Carrizales MA [facility] 5 16:20:00 Social History Question Answer Notes LastModified by Organizat ion Details LastModified Time Tobacco Smoking Status Former Smoker Antonia Botello MA null, [facility] 11/28/2023 10:33:38 Do You Have An Advance [...] Anxious, Or Unable To Sleep At Night)? [id number] Information not available 11/28/2023 Do You Use [...] completed Spencer Mobley MD Attn: Accounting[address] [place], [address], [facility] 09/03/2024 20:58:02 Past Encounters Encounter ID Performer Location Encounter Start Date Encounter Closed Date Diagnosis/Indication Diagnosis SNOMED-CT Code Diagnosis ICD10 Code Diagnosis Note [id number] Spencer Mobley MD [facility] [place] [address] [place] [address] 11/28/2023 10:10:41 11/28/2023 11:01:35 Type 2 diabetes mellitus 77116034 E11.9 Essential hypertension 09057182 I10 Hyperlipidemia 52555178 E78.5 Chronic ob structive pulmonary disease 40801077 J44.9 [id number] Spencer Mobley MD [facility] [place] [address] [place] [address] 03/26/2024 09:45:48 03/26/2024 10:51:25 Overweight 670339807 E66.3 Type 2 jaydon betes mellitus 25068496 E11.9 Essential hypertension 84981259 I10 Hyperlipidemia 17503617 E78.5 Screening for malignant neoplasm of prostate 795770986 Z12.5 Screening for malignant neoplasm of colon 658525061 Z12.11 [id number] Spencer Mobley MD [facility] [place] [address] [place] [address] 09/03/2024 15:50:43 09/03/2024 16:59:00 Hyperlipidemia 78149426 E78.5 Body mass index 25-29 - overweight 291558094 Z68.29 Overweight 195502588 E66 .3 Essential hypertension 05062131 I10 Type 2 jaydon betes mellitus 72985180 E11.9 Administra tion of influenza vaccine 00123935 Z23 Chronic ob structive pulmonary disease 83325296 J44.9 Pneumococc al vaccination declined 988588870 Z28.21 Health Concerns Section Related Observation LastModified by Organization Detai ls LastModified Time None Recorded Concern Status LastModified by Organization Details LastModified Time None Recorded Advance Directives Directive N: Payers Encounter Date Sequence Insurance Name Policy Number Policy Walton Covered Member ID Walton Member ID Guarantor Name 11/28/2023 1 [employer] 680 Sami Borror [id number] Sami Borror 03/26/2024 1 [employer] 680 Sami Borror [id number] Sami Borror 09/03/2024 1 [employer] 680 Sami Borror [id number] Sami Borror Notes Date Note Type Note [...] surgery Spencer Mobley MD Attn: Accounting[address] [place], [address], [facility] 12/16/2023 21:02:30 03/26/2024 text/html 68-year-old with asthma/COPD diabetes high blood pressure and high cholesterol who comes in to follow-up on his medical problem COPD asthma his breathing's been stable not a lot of rescue inhaler use diabetes no polyphagia or polydipsia. High cholesterol does try to watch his diet he is taking his rosuvastatin. Spencer Mobley MD Attn: Accounting[address] [place], [address], [facility] 04/04/2024 15:38:23 09/03/2024 text/html here for follow [...] PSA Spencer Mobley MD Attn: Accounting[address] [place], [address], [facility] 09/03/2024 21:06:33
[2024-12-17 10:55] LABS: Anion Gap 9 mmol/L (4-12); Blood Urea Nitrogen 43 mg/dL (9-20); Calcium 9.1 mg/dL (8.4-10.2); Carbon Dioxide 33 mmol/L (22-30); Chloride 95 mmol/L (98-107); Estimated Glomerular Filt Rate 34; Glucose 252 mg/dL (65-110); Potassium 2.8 mmol/L (3.4-5.0); Sodium 137 mmol/L (137-145)
== END 2024-12-17 09:52 | disposition home or self-care (01) ==
LOC: ANHLAB 10:01
PROVIDERS: PCP Internal Medicine; Visit Provider Nurse Anesthetist, Certified Registered
DX: Z01.818 Encounter for other preprocedural examination (principal); R94.31 Abnormal electrocardiogram [ECG] [EKG]; I10 Essential (primary) hypertension; E11.9 Type 2 diabetes mellitus without complications
CPT/HCPCS: 36415; 80048; 93005

== ENCOUNTER 2024-12-17 17:53 | Emergency (ER) | payer OTHER, SELFPAY ==
[2024-12-17] VITALS (8 sets, daily range): BP systolic 113–147; BP diastolic 81–87; PULSE 81–88; RESP 11–18; TEMP 36.4; O2SAT 94–98
--- OUTSIDE RECORDS SUMMARY | 2024-12-17 17:56 | XMS_ITS | Data Portability ---
Author Organization [facility]MER[facility] Address [address] [place] [address] Assessment Encounter Date Assessment Date Assessment LastModified [...] he can have cataract surgery if needed Not available 12/16/2023 21:02:02 03/26/2024 03/26/2024 blood work for biochemical management of disease processes and medications. Follow up with me in 4 months colonoscopy all questions answered [email or web address] Not available 04/04/2024 15:38:06 09/03/2024 09/03/2024 reviewed [...] were needed. Return to clinic 4 months' [email or web address] Not available 09/03/2024 21:06:07 Plan of Treatment Reminders Order Date Submit Date Provider Last Modified By Organization Details Last Modified Time Details Appointments ANY 15 2024 03:00P Kenneth Mobley MD Not available Not available Not available Lab PSA, serum or plasma 2023 024 ST[facility], [address], [place], [address], 04/28/2024 14:17:45 HbA1c (hemoglob in A1c), blood 2023 024 ST[facility]Y [facility], [address], [place], [address], 04/28/2024 14:17:45 albumin/c reatinine , mass ratio, urine 2023 024 [facility], [address], [place], [address], 04/28/2024 14:17:45 CMP, serum or plasma 2023 024 [facility], [address], [place], [address], 04/28/2024 14:17:45 CBC w/ auto diff 2023 024 [facility], [address], [place], [address], 04/28/2024 14:17:45 lipid panel, serum 2023 024 [facility], [address], [place], [address], 04/27/2024 09:38:10 HbA1c (hemoglob in A1c), blood 2023 024 ST[facility]Y [facility], [address], [address], [place], [address], 12/10/2023 14:44:24 CBC w/ auto diff 2023 024 ST[facility]Y [facility], [address], [address], [place], [address], 12/10/2023 14:44:24 lipid panel, serum 2023 024 [place] [facility], [address], [place], [address], 12/10/2023 14:44:24 CMP, serum or plasma 2023 024 [place] [facility], [address], [address], [place], [address], 12/10/2023 14:44:24 Referral None recorded. Procedures colonosco py screening (PROC) 2023 024 [facility], [address], [address], [place], [address], 12/17/2024 12:12:20 Surgeries None recorded. Imaging None recorded. Medication Orders rosuvasta tin 20 mg tablet 2024 025 [email or web address] [facility], [address], [place], [place], [id number], 09/03/2024 17:33:30 OneTouch Verio test strips 2023 024 [email or web address] [facility], [address], [place], [place], [id number], 11/28/2023 11:11:15 Patient TargetsNo targets recorded. Patient Instructions Encounter Date Encounter Id Patient Instructions Last Modified By Organization Details Last Modified Time 03/26/2024 [id number] A healthy lifestyle: care instructions [email or web address] Not available 03/26/2024 13:22:13 09/03/2024 [id number] A healthy lifestyle: care instructions [email or web address] Not available 09/03/2024 17:33:30 Reason for Referral [...] Organi zation Inform ation: Site ID: Name: [id number] Add[place]: [id number] [place] [address] Direct or: Kaylene-L ieu Thi Vo Perfo rming Organ izati on Infor el n: Site ID: Name: [id number] [facility] Addre ss: [id number] [place] [address] Direc tor: Kaylene- Lieu Thi Vo Not Available Not Available 11/10/2024 16:59:39 02/05/20 24 02/06/2024 Hemog lobin A1c/H emogl obin. total in Blood interpretati on and review of laboratory results Abnorm al Not Available Not Available 16:59:39 05/15/20 24 05/15/2024 garo rao am, rod ne ECG, 12 leads min; inter preta tion and repor t (PROC ) No observ ation record ed. [facility] [address], [place], [address], 05/18/2024 09:28:12 05/21/20 24 05/21/2024 US, renal No observ ation record ed. [address] [facility] [address], [place], [address], 05/27/2024 23:15:36 04/06/07 2511/26/2024 trans -thor acic echoc ardio gram (TTE) (PROC ) No observ ation record ed. [email or web address] [facility] [address], [place], [address], 11/27/2024 10:01:42 12/04/19 25 12/03/2024 CT, abdom en + pelvi s, w/wo contr ast No observ ation record ed. [facility] [address], [place], [address], 12/04/2024 14:41:37 Result Notes None recorded. Problems Name Problem SNOMED Code Status Onset Date Resolution Date Notes Provider Name and Address Organization Details Recorded Time Type 2 diabetes mellitus 90034634 Active 2023 Derek Anderson MA null, [place] - [facility] 4 10:56:44 Essential hypertension 16387422 Active 2023 Derek Anderson MA null, [place] - [facility] 4 10:36:01 Hyperlipidemia 68164666 Active 2023 Derek Anderson MA null, [place] - [facility] 4 10:36:02 Pneumococcal vaccination declined 368715736 Active 2024 Spencer Mobley MD Attn: Prabhakar draper,[address] [facility], [place], [address], [facility] - SIF 5 21:02:35 Problem Notes None recorded. Procedures Surgical History Date Name Laterality Status Provider Name and Address Organization Details Recorded Time Eye Surgery completed Antonia Botello MA [place] - [facility] 11/28/2023 10:32:14 Vasectomy completed Antonia Botello MA [place] - [facility] 11/28/2023 10:32:18 Imaging Results Imaging Date Name Status LastModified by Organization Details LastModified Time 05/15/2024 electrocardiogram, routine ECG, 12 leads min; interpretation and report (PROC) completed [facility] [address], [place], [address], 05/18/2024 09:28:12 05/21/2024 US, renal completed [address], [place], [address], 05/27/2024 23:15:36 11/26/2024 trans-thoracic echocardiogram (TTE) (PROC) completed [email or web address] [facility] [address], [place], [address], 11/27/2024 10:01:42 12/03/2024 CT, abdomen + pelvis, w/wo contrast completed [facility] [address], [place], [address], 12/04/2024 14:41:37 Procedure Notes None recorded. Medical [...] Address Organization Details Last Updated DateTime 4 31119.8 8 g 28.8 kg/m2 167.64 cm 62 /min 98.2 [degF] 98 % 98 % 142 mm[Hg] 90 mm[Hg] Antonia Botello MA [facility] 4 10:43:24 Date Recorded Body height Body mass index (BMI) Body weight Heart rate Oxygen saturation Oxygen saturation in Arterial blood by Pulse oximetry Systolic blood pressure Diastolic blood pressure Provider Name and Address Organization Details Last Updated DateTime 4 167.64 cm 28.9 kg/m2 23503.0 3 g 70 /min 97 % 97 % 136 mm[Hg] 78 mm[Hg] Alysa Linder MA [facility] 4 10:10:06 Date Recorded Body height Body mass index (BMI) Body weight Heart rate Oxygen saturation Oxygen saturation in Arterial blood by Pulse oximetry Systolic blood pressure Diastolic blood pressure Provider Name and Address Organization Details Last Updated DateTime 5 167.64 cm 29.2 kg/m2 19098.1 4 g 90 /min 95 % 95 % 124 mm[Hg] 68 mm[Hg] Deanna Carrizales MA [facility] 5 16:20:00 Social History Question Answer Notes LastModified by Organizat ion Details LastModified Time Tobacco Smoking Status Former Smoker Antonia Botello MA null, [facility] 11/28/2023 10:33:38 Do You Have An Advance [...] Anxious, Or Unable To Sleep At Night)? DM1160-8 Information not available 11/28/2023 Do You Use [...] lable 11/28/2023 10:33:14 Medical History Condition Response High Blood Pressure Y COPD Y Diabetes Y Asthma Y Allergies Y High Cholesterol Y Immunizations Vaccine Type Date Status Note Provider Nam e and Address Organization Details Recorded Time Influenza, high-dose, trivalent, PF 09/03/2024 completed Spencer Mobley MD Attn: Accounting[address] [place], [address], [facility] 09/03/2024 20:58:02 Past Encounters Encounter ID Performer Location Encounter Start Date Encounter Closed Date Diagnosis/Indication Diagnosis SNOMED-CT Code Diagnosis ICD10 Code Diagnosis Note [id number] Spencer Mobley MD [facility] [place] [address] [place] [address] 11/28/2023 10:10:41 11/28/2023 11:01:35 Type 2 diabetes mellitus 96380760 E11.9 Essential hypertension 80479367 I10 Hyperlipidemia 22694573 E78.5 Chronic ob structive pulmonary disease 76682000 J44.9 [id number] Spencer Mobley MD [facility] [place] [address] [place] [address] 03/26/2024 09:45:48 03/26/2024 10:51:25 Overweight 116047088 E66.3 Type 2 jaydon betes mellitus 52422361 E11.9 Essential hypertension 18204514 I10 Hyperlipidemia 01496738 E78.5 Screening for malignant neoplasm of prostate 812655730 Z12.5 Screening for malignant neoplasm of colon 051968708 Z12.11 [id number] Spencer Mobley MD [facility] [employer] [address] [place] [address] 09/03/2024 15:50:43 09/03/2024 16:59:00 Hyperlipidemia 31654878 E78.5 Body mass index 25-29 - overweight 414535209 Z68.29 Overweight 944534860 E66 .3 Essential hypertension 54800974 I10 Type 2 jaydon betes mellitus 97286055 E11.9 Administra tion of influenza vaccine 20550239 Z23 Chronic ob structive pulmonary disease 24691547 J44.9 Pneumococc al vaccination declined 121099397 Z28.21 Health Concerns Section Related Observation LastModified by Organization Detai ls LastModified Time None Recorded Concern Status LastModified by Organization Details LastModified Time None Recorded Advance Directives Directive N: Payers Encounter Date Sequence Insurance Name Policy Number Policy Walton Covered Member ID Walton Member ID Guarantor Name 11/28/2023 1 [employer] 680 Sami Borror [id number] Sami Borror 03/26/2024 1 [employer] 680 Sami Borror [id number] Sami Borror 09/03/2024 1 [employer]MG 680 Sami Borror [id number] Sami Borror Notes Date Note Type Note [...] surgery Spencer Mobley MD Attn: Accounting[address] [place], [address], [facility] 12/16/2023 21:02:30 03/26/2024 text/html 68-year-old with asthma/COPD diabetes high blood pressure and high cholesterol who comes in to follow-up on his medical problem COPD asthma his breathing's been stable not a lot of rescue inhaler use diabetes no polyphagia or polydipsia. High cholesterol does try to watch his diet he is taking his rosuvastatin. Spencer Mobley MD Attn: Accounting[address] [place], [address], [facility] 04/04/2024 15:38:23 09/03/2024 text/html here for [...] PSA Spencer Mobley MD Attn: Accounting[address] [place], [address], [facility] 09/03/2024 21:06:33
--- OUTSIDE RECORDS SUMMARY | 2024-12-17 17:56 | XMS_ITS | Clinical Summary ---
Author Organization [employer] [facility] [employer] [facility] Address [address] [address] Phone Care Team Providers Care Outreach Associate Name Role Phone Spencer Mobley MD Primary Care Provider Allergies No known active allergies Medications albuterol [...] Type Department Care Team Description 11/09/2024 Refill [facility], [address] [address] Abby Anthony CMA 09/25/2024 Refill [facility], [address] [address] Abby Anthony CMA from Last 3 Months [...] 12:53 PM CDT Height 167.6 cm (5' 6) 04/30/2024 12:53 PM CDT Body Mass Index [...] change in test platforms from the [employer] to the [employer] norma c503 may have shifted HbA1c results compared to historical results. Based on laboratory validation testing conducted at [facility], the Van platform relative to the Bhakta [...] AM CDT 02/05/2024 7:41 AM CDT Narrative [facility] - 02/06/2024 11:01 AM CDT FASTING:YES FASTING: YES Resulting Agency Comment Performing Organization Information: Site ID: SL Name: [facility] Address: [address] [place] [address] Director: Nicola Guillermo us Gracielaed Pawel Soto MD LAB BLOOD ORDERABLES Final Res ult [facility] See order [place] [address] from Last 3 Months or Most Recently Relevant to Health Maintenance Insurance [facility] Advance Directives Documents on File Type Date Recorded 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
--- OUTSIDE RECORDS SUMMARY | 2024-12-17 17:56 | XMS_ITS | CONTINUITY OF CARE DOCUMENT ---
Author Name danial mayrafael Address Unknown Organization [facility] Address [address] [address] [facility] [address] [place] [address] Phone [phone] Care Team Providers Care Doctor Of Nursing Practice Name Role Phone Abdiaziz Arias MD Unavailable DEBORAH KIRK MD Unavailable DEBORAH KIRK MD Unavailable [phone] PROBLEMS Condition Status Date Provider Notes Cardiology [...] In-person encounter Office Visit Abdiaziz Arias MD [facility] HFpEF - In-person encounter Office Visit Abdiaziz Arias MD [facility] - In-person encounter Office Visit Abdiaziz Arias MD [facility] - In-person encounter Office Visit Abdiaziz Arias MD [facility] - In-person encounter Office Visit Abdiaziz Arias MD [facility] Shortness of breathSLEEP APNEA - In-person encounter Office Visit Abdiaziz Arias MD [facility] - In-person encounter Office Visit Abdiaziz Arias MD [facility] Cardiology examinationCOPDHTN essentialDiabetes mellitusHyperlipidemiaAbnormal stress testChest pain VITAL SIGNS Date Observation Value Provider Body Mass Index (Ratio) 29.37 kg/m2 Homero Arias MD blood pressure, diastolic 95 mm[Hg] Anita washington [facility] blood pressure, systolic 150 mm[Hg] Jessica moya [facility] oxygen saturation, oximetry 95 % Phuong jackie pulse rate 72 /min Phuong [facility] blood pressure, cuff size regular Anita washington [facility] weight E&M 182 [lb_av] Phuong [facility] height E&M 66 [in_i] Phuong [facility] Body Mass Index (Ratio) 29.08 kg/m2 [...] Ja rret blood pressure, systolic 144 mm[Hg] [facility] pulse rate 71 /min Ignacio oxygen saturation, oximetry 96 % respiratory rate E&M 16 /min weight E&M 174 [lb_av] Ignacio height E&M 66 [in_i] Ignacio y Body Mass Index (Ratio) 28.24 kg/m2 Homero Arias MD blood pressure, cuff size regular Ja rr blood pressure, diastolic 93 mm[Hg] Ja rr blood pressure, systolic 148 mm[Hg] [facility] pulse rate 73 /min Ignacio oxygen saturation, oximetry 96 % Ignacio respiratory rate E&M 12 /min Ignacio weight E&M 175 [lb_av] Ignacio height E&M 66 [in_i] Ignacio y Body Mass Index (Ratio) 29.53 kg/m2 Homero Arias MD blood pressure, cuff size regular Ja rr blood pressure, diastolic 91 mm[Hg] Ja rret blood pressure, systolic 161 mm[Hg] [facility] ret pulse rate 71 /min [...] NT-pro BNP 133 LinkLogic <125 [place] [facility] [address] [address] [facility] [place] [address] Nicola Guillermo MD prothrombin time (patient) 10.8 [...] Normal Absolute Neutrophil count 5492 cells/mcL LinkLogic [id number] Normal mean platelet volume 9.3 fL [employer] [...] MD drug use no Cece Ventimig fady [facility] alcohol use no Cece Ventimig fady [facility] smoking status Former smoker Cceeyanique Galvan miglia [facility] social history reviewed E&M revi ewed - [...] Payer name Policy type / Coverage type [place] red [place] party ID [employer] insurance evOLED [id number] ADVANCE DIRECTIVES Name Date DISCUSSED - NO DECISION MADE TREATMENT PLAN Date Name Performer [id number],C, H is updated medication list for this problem includes: Amlodipine-olmesartan 5-40 Mg Tablet (Amlodipine-olmesartan) ..... Take 1 tablet by mouth every day Metformin 500 Mg Tablet (Metformin) ..... Take 1 tablet by mouth every day [facility] [id number],C,T he patient is using CPAP on a regular basis. The patient has been benefiting from therapy and should continue use. [facility] [id number],C, H is updated medication list for this problem includes: Rosuvastatin 20 Mg Tablet (Rosuvastatin) ..... Take 1 tablet by mouth daily [facility] [id number],C,c ontinues to persist m ay be r/t [...] 1 tablet by mouth daily Cece Sanders [facility] [id number],C,B P elevated again today R eports well controlled at PCP visit last week H ave asked him to monitor at home G oal BP <130/80 W ill return in 3 mos or sooner if needed. Cece Sanders [facility] [id number],C,P atient does not feel like his CPAP is working correctly, will give him Dr. Smith's phone number Abdiaziz Arias MD [id number],C, B P today: 161/91 P rior BP: 161/97 (02/21/2023) Labs Reviewed: C reat: 1.06 (12/28/2022) C hol: 179 (12/28/2022) HDL: 47 (12/28/2022) LDL: 93 MG/DL (CALC) (12/28/2022) T (12/28/2022) Abdiaziz Arais MD [id number],C,Patient feels SOB Abdiaziz Arias MD [id number],B, Abdiaziz Arias MD [id number],C, B P today: 161/97 P rior BP: [...] by mouth twice daily Abdiaziz Arias MD [id number],C,a s in hpi h as minimal disease and should conitnue statin Abdiaziz Arias MD [id number],S, H is updated medication list for this problem includes: Albuterol Sulfate 90 Mcg/actuation Hfa Aerosol Inhaler (Albuterol sulfate) ..... Inhale 2 puffs by mouth every 4 hours as needed Trelegy Ellipta 100-62.5-25 Mcg Blister With Device (Gianukplhtz-nzdxxapgm-xwxakyya) ..... Inhale 1 puff by mouth every day Abdiaziz Arias MD [id number],C, B P today: 163/102 His updated medication list for this problem includes: Clonidine Hcl 0.1 Mg Tablet (Clonidine hcl) ..... Take 1 tablet by mouth twice daily Amlodipine-benazepril 10-20 Mg Capsule (Amlodipine-benazepril) ..... Take 1 capsule by mouth every day Losartan 25 Mg Tablet (Losartan) ..... Take 1 tablet by mouth every day Abdiaziz Arias MD [id number],S, Abdiaziz Arias MD [id number],C,Have recommen ded a cardiac cath Abdiaziz Arias [...] tablet by mouth every day Ceceyanique Sanders [facility] Cardiology:The patie nt is using CPAP on a regular basis. The patient has been benefiting from therapy and should continue use. Ceceyanique Sanders [facility] Cardiology: H is updated medication list for this problem includes: Rosuvastatin 20 Mg Tablet (Rosuvastatin) ..... Take 1 tablet by mouth daily Cece Sanders [facility] Cardiology:continues to persist m ay be r/t [...] 1 tablet by mouth daily Cece Marilyn [facility] Cardiology:BP elevat ed again today R eports well controlled at PCP visit last week H ave asked him to monitor at home G oal BP <130/80 W ill return in 3 mos or sooner if needed. Cece Sanders [facility] Cardiology:Patient d oes not feel like his [...] Trelegy Ellipta 100-62.5-25 Mcg Blister With Device (Ugfabnfyxkr-rozmejvjz-zwpeaabx) ..... Inhale 1 puff by mouth every [...]
--- NOTE | 2024-12-17 18:00 | ECG_ITS ---
Test Date: 2024-12-17 18:05:30 Measurements Intervals [place] Rate: 89 P: -89 MT: 112 QRS: -32 QRSD: 93 T: 74 QT: 283 QTc: 345 Interpretive Statements NORMAL SINUS RHYTHM LEFT AXIS DEVIATION [QRS AXIS < -30] LEFT VENTRICULAR HYPERTROPHY AND ST-T CHANGE [VOLTAGE CRITERIA PLUS ST/T ABNORMALITY] Compared to ECG 12/17/2024 10:25:46 Electronically Signed On 12-18-2024 19:05:06 CDT by Ifrah Bryson
[2024-12-17 18:41] LABS: Basophils Absolute Auto 0.1 K/mm3 (0.0-0.1); Basophils Percent Auto 0.7 % (0.2-1.2); Eosinophils Absolute Auto 0.6 K/mm3 (0-0.3); Eosinophils Percent Auto 7.6 % (0-4.4); Hematocrit 45.6 % (42.0-52.0); Hemoglobin 15.1 g/dL (14.0-18.0); Immature Granulocyte Absolute 0.03 K/mm3 (0.00-0.031); Immature Granulocyte Percent A 0.4 % (0-0.5); Immature Platelet Fraction Pct 1.5 % (0.9-11.2); Lymphocytes Absolute Auto 0.88 K/mm3 (0.9-3.2); Lymphocytes Percent Auto 10.6 % (18.3-44.2); Mean Corpuscular HGB Conc 33.1 g/dl (32-36); Mean Corpuscular Hemoglobin 27.9 pg (26-34); Mean Corpuscular Volume 84.3 fl (80-100); Mean Platelet Volume 9.9 fl (7.4-10.4); Monocytes Absolute Auto 0.9 K/mm3 (0.1-0.6); Monocytes Percent Auto 11.1 % (2.6-8.5); Neutrophils Absolute Auto 5.8 K/mm3 (1.3-6.7); Neutrophils Percent Auto 69.6 % (45.5-73.1); Platelet Count Result 242 k/mm3 (150-375); Red Blood Count 5.41 M/mm3 (4.6-6.20); Red Cell Distribution Width 13.8 % (11.5-14.5); White Blood Count 8.3 K/mm3 (4.5-10.0)
--- OUTSIDE RECORDS SUMMARY | 2024-12-17 18:41 | XMS_ITS | Clinical Summary ---
Author Organization [facility] [employer] [facility] Address [address] [address] Phone Care Team Providers Care Offline Editor Name Role Phone Spencer Mobley MD Primary [...] Type Department Care Team Description 11/09/2024 Refill [facility], [address] [address] Abby Anthony CMA 09/25/2024 Refill [facility], [address] [address] Abby Anthony CMA from Last 3 Months [...] change in test platforms from the Bhakta Seeing [employer] Teacher to the Van norma c503 may have shifted HbA1c results compared to historical results. Based on laboratory validation testing conducted at [facility], the Van platform relative to the Bhakta [...] AM CDT 02/05/2024 7:41 AM CDT Narrative [facility] - 02/06/2024 11:01 AM CDT FASTING:YES FASTING: YES Resulting Agency Comment Performing Organization Information: Site ID: SL Name: [facility] Address: [address] [place] [address] Director: Nicola Guillermo us Gracielaed Pawel Soto MD LAB BLOOD ORDERABLES Final Res ult [facility] See order [place] [address] from Last 3 Months or Most Recently Relevant to Health Maintenance [place] [facility] Advance Directives Documents on File Type Date Recorded 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
--- OUTSIDE RECORDS SUMMARY | 2024-12-17 18:41 | XMS_ITS | CONTINUITY OF CARE DOCUMENT ---
Author Name danial mayrafael Address Unknown Organization [facility] Address [address] [address] [address] [place] [address] Phone [phone] Care Team Providers Care Reconnaissance Man Name Role Phone Abdiaziz Arias MD Unavailable DEBORAH KIRK MD Unavailable DEBORAH IKRK MD Unavailable [phone] PROBLEMS Condition Status Date Provider Notes Cardiology [...] In-person encounter Office Visit Abdiaziz Arias MD [facility] HFpEF - In-person encounter Office Visit Abdiaziz Arias MD [facility] - In-person encounter Office Visit Abdiaziz Arias MD [facility] - In-person encounter Office Visit Abdiaziz Arias MD [facility] - In-person encounter Office Visit Abdiaziz Arias MD [facility] Shortness of breathSLEEP APNEA - In-person encounter Office Visit Abdiaziz Arias MD [facility] - In-person encounter Office Visit Abdaiziz Arias MD [facility] Cardiology examinationCOPDHTN essentialDiabetes mellitusHyperlipidemiaAbnormal stress testChest pain VITAL SIGNS Date Observation Value Provider Body Mass Index (Ratio) 29.37 kg/m2 Homero Arias MD blood pressure, diastolic 95 mm[Hg] Anita washington [facility] blood pressure, systolic 150 mm[Hg] Jessica moya [facility] saturation, oximetry 95 % Phuong jackie pulse rate 72 /min Phuong [facility] blood pressure, cuff size regular Anita washington [facility] weight E&M 182 [lb_av] Phuong [facility] height E&M 66 [in_i] Phuong [facility] Body Mass Index (Ratio) 29.08 kg/m2 [...] amanda Amador oxygen saturation, oximetry 96 % Cariadd Amador respiratory rate E&M 18 /min Caridad D adrianne pulse rate 84 /min Caridad Amador height E&M 66 [in_i] Caridadamanda Amador weight E&M 187 [lb_av] Caridad Amador ALLERGIES No Known Drug Allergies RESULTS Date Observation Value Provider Reference Range Interpretation Location NT-pro BNP 133 [employer] <125 [place] [facility] [address] [address] [facility] [place] [place] [address] Nicola Guillermo MD prothrombin time (patient) 10.8 [...] Normal Absolute Neutrophil count 5492 cells/mcL [employer] [id number] Normal mean platelet volume 9.3 fL [employer] [...] MD drug use no Cece Ventimig fady [facility] alcohol use no Cece Ventimig fady [facility] smoking status Former smoker Ceceyanique Galvan miglia [facility] social history reviewed E&M revi ewed [...] Payer name Policy type / Coverage type [place] red republican ID [employer] insurance [employer] [id number] ADVANCE DIRECTIVES Name Date DISCUSSED - NO DECISION MADE TREATMENT PLAN Date Name Performer [id number],C, H is updated medication list for this problem includes: Amlodipine-olmesartan 5-40 Mg Tablet (Amlodipine-olmesartan) ..... Take 1 tablet by mouth every day Metformin 500 Mg Tablet (Metformin) ..... Take 1 tablet by mouth every day [facility] [id number],C,T he patient is using CPAP on a regular basis. The patient has been benefiting from therapy and should continue use. [facility] [id number],C, H is updated medication list for this problem includes: Rosuvastatin 20 Mg Tablet (Rosuvastatin) ..... Take 1 tablet by mouth daily [facility] [id number],C,c ontinues to persist m ay be r/t [...] 1 tablet by mouth daily Cece Sanders [facility] [id number],C,B P elevated again today R eports well controlled at PCP visit last week H ave asked him to monitor at home G oal BP <130/80 W ill return in 3 mos or sooner if needed. Cece Sanders [facility] [id number],C,P atient does not feel like his CPAP is working correctly, will give him Dr. Smith's phone number Abdiaziz Arias MD [id number],C, B P today: 161/91 P rior BP: 161/97 (02/21/2023) Labs Reviewed: C reat: 1.06 (12/28/2022) C hol: 179 (12/28/2022) HDL: 47 (12/28/2022) LDL: 93 MG/DL (CALC) (12/28/2022) T (12/28/2022) Abdiaziz Arias MD [id number],C,Patient feels SOB Abdiaziz Arias MD [id number],B, Abdiaziz Arias MD [id number],C, B P today: 161/97 P rior BP: [...] by mouth twice daily Abdiaziz Arias MD [id number],C,a s in hpi h as minimal disease and should conitnue statin Abdiaziz Arias MD [id number],S, H is updated medication list for this problem includes: Albuterol Sulfate 90 Mcg/actuation Hfa Aerosol Inhaler (Albuterol sulfate) ..... Inhale 2 puffs by mouth every 4 hours as needed Trelegy Ellipta 100-62.5-25 Mcg Blister With Device (Ynhpoqhcbnn-egngxofxx-xyaznkcq) ..... Inhale 1 puff by mouth every day Abdiaziz Arias MD [id number],C, B P today: 163/102 His updated medication list for this problem includes: Clonidine Hcl 0.1 Mg Tablet (Clonidine hcl) ..... Take 1 tablet by mouth twice daily Amlodipine-benazepril 10-20 Mg Capsule (Amlodipine-benazepril) ..... Take 1 capsule by mouth every day Losartan 25 Mg Tablet (Losartan) ..... Take 1 tablet by mouth every day Abdiaziz Arias MD [id number],S, Abdiaziz Arias MD [id number],C,Have recommen ded a cardiac cath Abdiaziz Arias [...] tablet by mouth every day Ceceyanique Sanders [facility] Cardiology:The patie nt is using CPAP on a regular basis. The patient has been benefiting from therapy and should continue use. Ceceyanique Sanders [facility] Cardiology: H is updated medication list for this problem includes: Rosuvastatin 20 Mg Tablet (Rosuvastatin) ..... Take 1 tablet by mouth daily Cece Sanders [facility] Cardiology:continues to persist m ay be [...] 1 tablet by mouth daily Cece Marilyn [facility] Cardiology:BP elevat ed again today R eports well controlled at PCP visit last week H ave asked him to monitor at home G oal BP <130/80 W ill return in 3 mos or sooner if needed. Cece Sanders [facility] Cardiology:Patient d oes not feel like [...] Trelegy Ellipta 100-62.5-25 Mcg Blister With Device (Xzmgwsxiync-xsvmgrxvy-grjnljnc) ..... Inhale 1 puff by mouth every [...]
[2024-12-17 18:55] LABS: Alanine Aminotransferase 29 U/L (6-50); Alkaline Phosphatase 79 U/L (38-126); Anion Gap 11 mmol/L (4-12); Aspartate Amino Transferase 24 U/L (17-59); Bilirubin,Total 0.7 mg/dL (0.2-1.3); Blood Urea Nitrogen 41 mg/dL (9-20); Calcium 9.2 mg/dL (8.4-10.2); Carbon Dioxide 27 mmol/L (22-30); Chloride 98 mmol/L (98-107); Estimated CRCL calculation 32 ml/min; Estimated Glomerular Filt Rate 38; Glucose 255 mg/dL (65-110); Potassium 2.7 mmol/L (3.4-5.0); Sodium 136 mmol/L (137-145)
[2024-12-17 19:00] LABS: Magnesium 2.1 mg/dL (1.6-2.3)
--- NOTE | 2024-12-17 19:12 | PC.NURSE ---
Received report from PHILL Lopez for cont. of care. Pt lying on stretcher respirations even and unlabored. Pt AOx4, on cont. radiation monitor and pulse oximeter.
--- NOTE | 2024-12-17 19:35 | ED_ITS ---
HPI - General Adult General Chief complaint: Recheck/Abnormal Lab/Rx Stated complaint: abnormal labs Time Seen by Provider: 12/17/24 18:24 History of Present Illness HPI narrative: 69-year-old male presenting to the emergency department for evaluation for outpatient testing that showed acute hypokalemia. Patient reports he has been eating and drinking well. Patient was getting outpatient labs that were to have nasal surgery. Upon arrival emergency department patient denies any pain or complaints. Related Data Home Medications ?Medication ?Instructions ?Recorded ?Confirmed ?Last Taken ?Type albuterol sulfate 90 mcg/actuation 2 puff inhalation Q4H PRN 11/13/24 11/24/24 Unknown History aerosol inhaler shortness of breath or wheezing amiloride 5 mg tablet 5 mg PO EVERY OTHER DAY 11/13/24 11/24/24 11/23/24 History amlodipine 5 mg-olmesartan 40 mg 1 tablet PO DAILY 11/13/24 11/24/24 11/24/24 History tablet azelastine 137 mcg (0.1 %) nasal 2 spray intranasal BID 11/13/24 11/24/24 11/23/24 History spray chlorthalidone 25 mg tablet 25 mg PO DAILY 11/13/24 11/24/24 11/23/24 History dapagliflozin propanediol 10 mg 10 mg PO DAILY 11/13/24 11/24/24 11/23/24 History tablet fluoxetine 40 mg capsule 40 mg PO DAILY 11/13/24 11/24/24 11/23/24 History fluticasone fur. 100 mcg-umeclid 1 inh inhalation DAILY 11/13/24 11/24/24 11/23/24 History 62.5 mcg-vilant 25 mcg inhalat.powder (Trelegy Ellipta) aspirin 81 mg tablet,delayed 81 mg PO DAILY 11/24/24 11/24/24 11/23/24 History release (Adult Aspirin Regimen) cholecalciferol (vitamin D3) 50 2,000 unit PO DAILY 11/24/24 11/24/24 11/23/24 History mcg (2,000 unit) capsule (Vitamin D3) ferrous sulfate 325 mg (65 mg 325 mg PO DAILY 11/24/24 11/24/24 11/20/24 History iron) tablet (Feosol) tamsulosin 0.4 mg capsule 0.4 mg PO DAILY 11/24/24 11/24/24 11/23/24 History vit C 250 mg-vit E 200 unit-zinc 2 cap PO DAILY 11/24/24 11/24/24 11/23/24 History ox 12.5 ah-ywkebc-jpetct-zeax capsule Allergies Allergy/AdvReac Type Severity Reaction Status Date / Time No Known Allergies Allergy Verified 12/17/24 17:54 Review of Systems 2 Review of Systems: All systems reviewed & are unremarkable except as noted in HPI and below PMFSH Past Medical History Medical History Colon cancer screening Social History Social History Smoking packs per day: 3 Smoking cigarettes per day: 60.0 Years smoked: 30 Smoking pack-years: 90.00 Smoking status: Former smoker Tobacco type: cigarettes Living arrangements: with family Spiritual care concerns: No Exam 2 Narrative: APPEARANCE: Well appearing, no pain, no distress, well-nourished. HEAD: normocephalic, atraumatic. EYES: PERRLA/EOMI, conjunctivae clear. NOSE: Normal no drainage EARS:TMS clear with good light reflex. THROAT: Pharynx clear, no exudate. NECK: Supple. No adenopathy, no masses. RESPIRATORY: Airway patent, respirations nonlabored. Clear to auscultation bilaterally, no rales, rhonchi, wheezing. CARDIOVASCULAR: Regular rate and rhythm without murmurs rubs or gallops. ABDOMINAL: Soft, nontender, nondistended, normal bowel sounds MUSCULOSKELETAL: Moves all extremities. Strength/ROM intact, No edema, No calf tenderness. NEURO: Alert. Cranial nerves II through XII intact. Good gait. Good coordination SKIN: Warm, dry. Normal Color Course Vital Signs Vital signs: Vital Signs Temperature 97.6 F 12/17/24 17:55 Pulse Rate 88 12/17/24 17:55 Respiratory Rate 16 12/17/24 17:55 Blood Pressure 147/87 H 12/17/24 17:55 Pulse Oximetry 98 12/17/24 17:55 Oxygen Delivery Room Air 12/17/24 17:55 Temperature 97.6 F 12/17/24 17:55 Pulse Rate 83 12/17/24 20:33 Respiratory Rate 11 L 12/17/24 20:33 Blood Pressure 113/85 12/17/24 20:33 Pulse Oximetry 97 12/17/24 20:33 Oxygen Delivery Room Air 12/17/24 17:55 Medical Decision Making MDM Narrative Medical decision making narrative: 69-year-old male that is asymptomatic presented emergency department for evaluation for outpatient labs that showed a potassium of 2.7. Patient was treated with 2 doses of 40 mEq of p.o. potassium and 1 IV dose of 20 mEq of potassium. Patient was discharged to home with instructions for close outpatient follow-up for retesting. Vital Signs Vital Signs: Vital Signs Temperature 97.6 F 12/17/24 17:55 Pulse Rate 88 12/17/24 17:55 Respiratory Rate 16 12/17/24 17:55 Blood Pressure 147/87 H 12/17/24 17:55 Pulse Oximetry 98 12/17/24 17:55 Oxygen Delivery Room Air 12/17/24 17:55 Temperature 97.6 F 12/17/24 17:55 Pulse Rate 83 12/17/24 20:33 Respiratory Rate 11 L 12/17/24 20:33 Blood Pressure 113/85 12/17/24 20:33 Pulse Oximetry 97 12/17/24 20:33 Oxygen Delivery Room Air 12/17/24 17:55 Lab Data 12/17/24 18:34 12/17/24 18:34 Labs: Lab Results 12/17/24 Range/Units 18:34 WBC 8.3 (4.5-10.0) K/mm3 RBC 5.41 (4.6-6.20) M/mm3 Hgb 15.1 (14.0-18.0) g/dL Hct 45.6 (42.0-52.0) % MCV 84.3 (80-100) fl MCH 27.9 (26-34) pg MCHC 33.1 (32-36) g/dl RDW 13.8 (11.5-14.5) % Plt Count 242 (150-375) k/mm3 MPV 9.9 (7.4-10.4) fl Immature Gran % (Auto) 0.4 (0-0.5) % Neut % (Auto) 69.6 (45.5-73.1) % Lymph % (Auto) 10.6 L (18.3-44.2) % [place] % (Auto) 11.1 H (2.6-8.5) % Eos % (Auto) 7.6 H (0-4.4) % Baso % (Auto) 0.7 (0.2-1.2) % Lymph # (Auto) 0.88 L (0.9-3.2) K/mm3 [place] # (Auto) 0.9 H (0.1-0.6) K/mm3 Eos # (Auto) 0.6 H (0-0.3) K/mm3 Baso # (Auto) 0.1 (0.0-0.1) K/mm3 Abs Immat Gran (auto) 0.03 (0.00-0.031) K/mm3 Absolute Neuts (auto) 5.8 (1.3-6.7) K/mm3 Absolute Nucleated RBC 0.000 (0.0-0.012) K/mm3 Nucleated RBC % 0.0 (0.0-0.2) % % Immature Plt Fraction 1.5 (0.9-11.2) % Sodium 136 L (137-145) mmol/L Potassium 2.7 L* (3.4-5.0) mmol/L Chloride 98 (98-107) mmol/L Carbon Dioxide 27 (22-30) mmol/L Anion Gap 11 (4-12) mmol/L BUN 41 H (9-20) mg/dL Creatinine 1.78 H (0.7-1.3) mg/dL Estim Creat Clear Calc 32 ml/min Estimated GFR 38 L (59 - ) Glucose 255 H (65-110) mg/dL Calcium 9.2 (8.4-10.2) mg/dL Magnesium 2.1 (1.6-2.3) mg/dL Total Bilirubin 0.7 (0.2-1.3) mg/dL AST 24 (17-59) U/L ALT 29 (6-50) U/L Alkaline Phosphatase 79 (38-126) U/L Total Protein 7.0 (6.3-8.2) g/dL Albumin 4.0 (3.5-5.1) g/dL Discharge Plan Discharge Clinical Impression: Hypokalemia Patient Disposition: Home Condition: Stable Instructions: Antibiotic Form, Hypokalemia (ED) Additional Instructions: Have close follow-up with your physicians for further outpatient potassium testing Patient Language: Mongolian Prescriptions: No Action amiloride 5 mg tablet 5 mg PO EVERY OTHER DAY albuterol sulfate 90 mcg/actuation HFA aerosol inhaler 2 puff INHALATION Q4H PRN (Reason: shortness of breath or wheezing) fluoxetine 40 mg capsule 40 mg PO DAILY chlorthalidone 25 mg tablet 25 mg PO DAILY azelastine 137 mcg (0.1 %) spray,non-aerosol 2 spray INTRANASAL BID amlodipine-olmesartan 5-40 mg tablet 1 tablet PO DAILY dapagliflozin propanediol 10 mg tablet 10 mg PO DAILY Trelegy Ellipta 100-62.5-25 mcg blister with device 1 inh INHALATION DAILY tamsulosin 0.4 mg capsule 0.4 mg PO DAILY cholecalciferol (vitamin D3) [Vitamin D3] 50 mcg (2,000 unit) capsule 2,000 unit PO DAILY ferrous sulfate [Feosol] 325 mg (65 mg iron) tablet 325 mg PO DAILY vit C-E-zinc br-ccqo-buk-zeax 250 mg-200 unit -12.5 mg-1 mg capsule 2 cap PO DAILY aspirin [Adult Aspirin Regimen] 81 mg tablet,delayed release (DR/EC) 81 mg PO DAILY Follow-up/Referrals: Itz,MD Spencer [Primary Care Provider] -
[2024-12-17] MEDS: KCL 20 MEQ/SW 100 ML 100 ML 50 MEQ IVPB (19:37)
[2024-12-17] MEDS: POTASSIUM CHLORIDE 20 MEQ PACKET (FOR LIQUID) 40 MEQ PO ×2 (19:38→21:14)
[2024-12-17] MEDS: SODIUM CHLORIDE 0.9% IV 500 ML 999 ML IV CONT (19:46)
--- NOTE | 2024-12-17 19:46 | PC.NURSE ---
500 mL NS infusing slowly with potassium to decrease burning at IV site.
== END 2024-12-17 22:38 | disposition home or self-care (01) ==
PROVIDERS: Emergency Provider Emergency Medicine; PCP Internal Medicine
DX: E87.6 Hypokalemia (principal); Z87.891 Personal history of nicotine dependence; Z79.82 Long term (current) use of aspirin; Z79.899 Other long term (current) drug therapy
CPT/HCPCS: 36415; 80048; 80053; 83735; 85025; 85055; 93005; 96365; 96366; 99284; 99285; A9270; J3480; J7040

== ENCOUNTER 2024-12-18 13:26 | Outpatient (CLI) | payer OTHER, SELFPAY ==
[2024-12-18 14:09] LABS: Potassium 3.3 mmol/L (3.4-5.0)
--- OUTSIDE RECORDS SUMMARY | 2024-12-19 13:56 | XMS_ITS | Data Portability ---
Author Organization [facility] Address [address] [address] Assessment Encounter Date Assessment Date Assessment LastModified [...] he can have cataract surgery if needed [email or web address] Not available 12/16/2023 21:02:02 03/26/2024 03/26/2024 blood work for biochemical management of disease processes and medications. Follow up with me in 4 months colonoscopy all questions answered [email or web address] Not available 04/04/2024 15:38:06 09/03/2024 09/03/2024 reviewed [...] were needed. Return to clinic 4 months' [email or web address] Not available 09/03/2024 21:06:07 Plan of Treatment Reminders Order Date Submit Date Provider Last Modified By Organization Details Last Modified Time Details Appointments ANY 15 2024 03:00P Kenneth Mobley MD Not available Not available Not available Lab PSA, serum or plasma 2023 024 ST[facility], [address], [place], [address], 04/28/2024 14:17:45 HbA1c (hemoglob in A1c), blood 2023 024 STACEY [facility], [address], [place], [address], 04/28/2024 14:17:45 albumin/c reatinine , mass ratio, urine 2023 024 STACEY [facility], [address], [place], [address], 04/28/2024 14:17:45 CMP, serum or plasma 2023 024 ST[facility]Y [facility], [address], [place], [address], 04/28/2024 14:17:45 CBC w/ auto diff 2023 024 STACEY [facility], [address], [place], [address], 04/28/2024 14:17:45 lipid panel, serum 2023 024 STACEY [facility], [address], [place], [address], 04/27/2024 09:38:10 HbA1c (hemoglob in A1c), blood 2023 024 STACEY [facility], [address] [facility], [address], [place], [address], 12/10/2023 14:44:24 CBC w/ auto diff 2023 024 STACEY [facility], [address] [facility], [address], [place], [address], 12/10/2023 14:44:24 lipid panel, serum 2023 024 GAFFNEY [facility], [address], [address], [place], [address], 12/10/2023 14:44:24 CMP, serum or plasma 2023 024 GAFFNEY [facility], [address], [address], [place], [address], 12/10/2023 14:44:24 Referral None recorded. Procedures colonosco py screening (PROC) 2023 024 [facility], [address], [place], [address], 12/17/2024 12:12:20 Surgeries None recorded. Imaging None recorded. Medication Orders rosuvasta tin 20 mg tablet 2024 025 [id number], [address], [place], [place], [id number], 09/03/2024 17:33:30 OneTouch Verio test strips 2023 024 [id number], [address], [place], [place], [id number], 11/28/2023 11:11:15 Patient TargetsNo targets recorded. Patient Instructions Encounter Date Encounter Id Patient Instructions Last Modified By Organization Details Last Modified Time 03/26/2024 [id number] A healthy lifestyle: care instructions [email or web address] Not available 03/26/2024 13:22:13 09/03/2024 [id number] A healthy lifestyle: care instructions [email or web address] Not available 09/03/2024 17:33:30 Reason for Referral [...] Organi zation Inform ation: Site ID: [facility] Addres s: [id number] [place] [address] Direct or: Kaylene-L ieu Thi Vo Perfo rming Organ izati on Infor el n: Site ID: Name[facility] Addre ss[facility] [id number] [place] [place] [address] Direc tor: Kaylene- Lieu Thi Vo Not Available Not Available 11/10/2024 16:59:39 02/05/20 24 02/06/2024 Hemog lobin A1c/H emogl obin. total in Blood interpretati on and review of laboratory results Abnorm al Not Available Not Available 16:59:39 05/15/20 24 05/15/2024 garo rao am, rod ne ECG, 12 leads min; inter preta tion and repor t (PROC ) No observ ation record ed. [facility] [address], [place], [address], 05/18/2024 09:28:12 05/21/20 24 05/21/2024 US, renal No observ ation record ed. [address] [facility] [address], [place], [address], 05/27/2024 23:15:36 04/06/07 2511/26/2024 trans -thor acic echoc ardio gram (TTE) (PROC ) No observ ation record ed. [email or web address] [facility] [address], [place], [address], 11/27/2024 10:01:42 12/04/19 25 12/03/2024 CT, abdom en + pelvi s, w/wo contr ast No observ ation record ed. [facility] [address], [place], [address], 12/04/2024 14:41:37 Result Notes None recorded. Problems Name Problem SNOMED Code Status Onset Date Resolution Date Notes Provider Name and Address Organization Details Recorded Time Type 2 diabetes mellitus 74544083 Active 2023 Derek Anderson MA null, [place] [facility] 4 10:56:44 Essential hypertension 21035399 Active 2023 Derek Anderson [place] null, [place] [facility] 4 10:36:01 Hyperlipidemia 60483214 Active 2023 Derek Anderson [place] null, [place] [facility] 4 10:36:02 Pneumococcal vaccination declined 406294657 Active 2024 Spencer Mobley MD Attn: Parbhakar draper,[address] [facility], [place], [address], [facility] - [facility] 5 21:02:35 Problem Notes None recorded. Procedures Surgical History Date Name Laterality Status Provider Name and Address Organization Details Recorded Time Eye Surgery completed Antonia Botello MA [place] - [facility] 11/28/2023 10:32:14 Vasectomy completed Antonia Botello [place] [facility] 11/28/2023 10:32:18 Imaging Results Imaging Date Name Status LastModified by Organization Details LastModified Time 05/15/2024 electrocardiogram, routine ECG, 12 leads min; interpretation and report (PROC) completed [facility] [address], [place], [address], 05/18/2024 09:28:12 05/21/2024 US, renal completed [address], [place], [address], 05/27/2024 23:15:36 11/26/2024 trans-thoracic echocardiogram (TTE) (PROC) completed [email or web address] [facility] [address], [place], [address], 11/27/2024 10:01:42 12/03/2024 CT, abdomen + pelvis, w/wo contrast completed [facility] [address], [place], [address], 12/04/2024 14:41:37 Procedure Notes None recorded. Medical [...] Address Organization Details Last Updated DateTime 4 26687.8 8 g 28.8 kg/m2 167.64 cm 62 /min 98.2 [degF] 98 % 98 % 142 mm[Hg] 90 mm[Hg] Antonia Botello MA [facility] 4 10:43:24 Date Recorded Body height Body mass index (BMI) Body weight Heart rate Oxygen saturation Oxygen saturation in Arterial blood by Pulse oximetry Systolic blood pressure Diastolic blood pressure Provider Name and Address Organization Details Last Updated DateTime 4 167.64 cm 28.9 kg/m2 76297.0 3 g 70 /min 97 % 97 % 136 mm[Hg] 78 mm[Hg] Alysa Linder MA [facility] 4 10:10:06 Date Recorded Body height Body mass index (BMI) Body weight Heart rate Oxygen saturation Oxygen saturation in Arterial blood by Pulse oximetry Systolic blood pressure Diastolic blood pressure Provider Name and Address Organization Details Last Updated DateTime 5 167.64 cm 29.2 kg/m2 15557.1 4 g 90 /min 95 % 95 % 124 mm[Hg] 68 mm[Hg] Deanna Carrizales MA [facility] 5 16:20:00 Social History Question Answer Notes LastModified by Organizat ion Details LastModified Time Tobacco Smoking Status Former Smoker Antonia Botello MA null, [facility] 11/28/2023 10:33:38 Do You Have An [...] Anxious, Or Unable To Sleep At Night)? [id number] Information not available 11/28/2023 Do You Use [...] completed Spencer Mobley MD Attn: Accounting[address] [place], [address], [facility] - [facility] 09/03/2024 20:58:02 Past Encounters Encounter ID Performer Location Encounter Start Date Encounter Closed Date Diagnosis/Indication Diagnosis SNOMED-CT Code Diagnosis ICD10 Code Diagnosis Note [id number] Spencer Mobley MD [facility] [address] [place] [address] 11/28/2023 10:10:41 11/28/2023 11:01:35 Type 2 diabetes mellitus 14540295 E11.9 Essential hypertension 17126329 I10 Hyperlipidemia 93916604 E78.5 Chronic ob structive pulmonary disease 55962601 J44.9 [id number] Spencer Mobley MD [facility] [address] [place] [address] 03/26/2024 09:45:48 03/26/2024 10:51:25 Overweight 073511257 E66.3 Type 2 jaydon betes mellitus 56154673 E11.9 Essential hypertension 55562660 I10 Hyperlipidemia 14561522 E78.5 Screening for malignant neoplasm of prostate 904649558 Z12.5 Screening for malignant neoplasm of colon 190603038 Z12.11 [id number] Spencer Mobley MD [facility] [address] [place] [address] 09/03/2024 15:50:43 09/03/2024 16:59:00 Hyperlipidemia 37921819 E78.5 Body mass index 25-29 - overweight 582202135 Z68.29 Overweight 262399197 E66 .3 Essential hypertension 19769721 I10 Type 2 jaydon betes mellitus 77448587 E11.9 Administra tion of influenza vaccine 41234434 Z23 Chronic ob structive pulmonary disease 32653902 J44.9 Pneumococc al vaccination declined 320499803 Z28.21 Health Concerns Section Related Observation LastModified by Organization Detai ls LastModified Time None Recorded Concern Status LastModified by Organization Details LastModified Time None Recorded Advance Directives Directive N: Payers Encounter Date Sequence Insurance Name Policy Number Policy Walton Covered Member ID Walton Member ID Guarantor Name 11/28/2023 1 [employer] 680 Sami Borror [id number] Sami Borror 03/26/2024 1 [employer] 680 Sami Borror [id number] Sami Borror 09/03/2024 1 [employer] 680 Sami Borror [id number] Sami Borror Notes Date Note Type Note [...] surgery Spencer Mobley MD Attn: Accounting[address] [place], [address], [facility] 12/16/2023 21:02:30 03/26/2024 text/html [...] Spencer Mobley MD Attn: Accounting[address] [place], [address], [facility] 04/04/2024 15:38:23 09/03/2024 text/html here [...] PSA Spencer Mobley MD Attn: Accounting[address] [place], [address], [facility] 09/03/2024 21:06:33
--- OUTSIDE RECORDS SUMMARY | 2024-12-19 13:56 | XMS_ITS | Clinical Summary ---
Author Organization [facility] Address [address] [address] Phone Care Team Providers Care Purchasing Expeditor Name Role Phone Spencer Mobley MD Primary Care Provider [phone] Allergies No known active allergies Medications albuterol [...] Type Department Care Team Description 11/09/2024 Refill [facility], [address] [address] Abby Anthony CMA 09/25/2024 Refill [facility], [address] [address] Abby Anthony CMA from Last 3 Months [...] change in test platforms from the [employer] to the Van norma c503 may have shifted HbA1c results compared to historical results. Based on laboratory validation testing conducted at [email or web address], the Van platform relative to the Bhakta [...] AM CDT 02/05/2024 7:41 AM CDT Narrative [facility] - 02/06/2024 11:01 AM CDT FASTING:YES FASTING: YES Resulting Agency Comment Performing Organization Information: Site ID: SL Name: [facility] Address: [address] [place] [address] Director: Nicola Guillermo us Gracielaed Pawel Soto MD LAB BLOOD ORDERABLES Final Res ult [facility] See order [place] [address] from Last 3 Months or Most Recently Relevant to Health Maintenance Insurance [facility] Advance Directives Documents on File Type Date Recorded Patient Administrative Resources Associate Expl anation Advance Care Planning 03/17/2024 3:20 PM Care Teams Purchasing Expeditor Relationship Specialty Start Date End Date Spencer Mobley MD [facility] [address] [place] [address] PCP - General Internal Medicine 01/08/24
--- OUTSIDE RECORDS SUMMARY | 2024-12-19 13:56 | XMS_ITS | CONTINUITY OF CARE DOCUMENT ---
Author Name danial micalianne Address Unknown Organization [facility] Address [address] [facility] [address] [place] [address] Phone [phone] Care Team Providers Care Mechanical Fitter Name Role Phone Abdiaziz Arias MD Unavailable [phone] DEBORAH KIRK MD Unavailable [phone] DEBORAH KIRK MD Unavailable PROBLEMS Condition Status Date Provider Notes HFpEF active Abdiaziz Arias MD SLEEP APNEA active Abdiaziz Arias MD Shortness of breath active Abdiaziz Arias MD Chest pain active Abdiaziz Arias MD Abnormal stress test active Abdiaziz Arias MD Hyperlipidemia active Abdiaziz Arias MD Diabetes mellitus active Abdiaziz Arias MD HTN essential active Abdiaziz Arias MD COPD active Abdiaziz Arias MD Cardiology examination active Abdiaziz Arias MD ENCOUNTERS Date Type Provider Location Encounter Diag nosis - In-person encounter Office Visit Abdiaziz Arias MD [facility] HFpEF - In-person encounter Office Visit Abdiaziz Arias MD [facility] - In-person encounter Office Visit Abdiaziz Arias MD [facility] - In-person encounter Office Visit Abdiaziz Arias MD [facility] - In-person encounter Office Visit Abdiaziz Arias MD [facility] Shortness of breathSLEEP APNEA - In-person encounter Office Visit Abdiaziz Arias MD [facility] - In-person encounter Office Visit Abdiaziz Arias MD [facility] Cardiology examinationCOPDHTN essentialDiabetes mellitusHyperlipidemiaAbnormal stress testChest pain VITAL SIGNS Date Observation Value Provider Body Mass Index (Ratio) 29.37 kg/m2 Homero Arias MD blood pressure, diastolic 95 mm[Hg] Anita washington [facility] blood pressure, systolic 150 mm[Hg] [facility], oximetry 95 % Phuong jackie pulse rate 72 /min Phuong [facility] blood pressure, cuff size regular Anita washington [facility] weight E&M 182 [lb_av] Phuong [facility] height E&M 66 [in_i] Phuong [facility] Body Mass Index (Ratio) 29.08 [...] Ja rret blood pressure, systolic 144 mm[Hg] [facility] pulse rate 71 /min Ignacio oxygen saturation, oximetry 96 % respiratory rate E&M 16 /min weight E&M 174 [lb_av] Ignacio height E&M 66 [in_i] Ignacio y Body Mass Index (Ratio) 28.24 kg/m2 Homero Arias MD blood pressure, cuff size regular Ja rr blood pressure, diastolic 93 mm[Hg] Ja rr blood pressure, systolic 148 mm[Hg] [facility] pulse rate 73 /min Ignacio oxygen saturation, oximetry 96 % Ignacio respiratory rate E&M 12 /min Ignacio weight E&M 175 [lb_av] Ignacio height E&M 66 [in_i] Ignacio y Body Mass Index (Ratio) 29.53 kg/m2 Homero Arias MD blood pressure, cuff size regular Ja rr blood pressure, diastolic 91 mm[Hg] Ja rret blood pressure, systolic 161 mm[Hg] [facility] ret pulse rate 71 /min Ignacio y [...] NT-pro BNP [address] [employer] <125 [place] [facility] [address] [facility] [place] [address] Nicola Guillermo MD prothrombin time (patient) 10.8 [...] Normal Absolute Neutrophil count 5492 cells/mcL [employer] [id number] Normal mean platelet volume 9.3 fL [employer] [...] MD drug use no Cece Ventimig fady [facility] alcohol use no Cece Ventimig fady [facility] smoking status Former smoker Ceceyanique Galvan miglia [facility] social history reviewed E&M revi ewed - [...] Payer name Policy type / Coverage type [place] red libertarian ID [employer] BTIG insurance [employer] [id number] ADVANCE DIRECTIVES Name Date DISCUSSED - NO DECISION MADE TREATMENT PLAN Date Name Performer [id number],C, H is updated medication list for this problem includes: Amlodipine-olmesartan 5-40 Mg Tablet (Amlodipine-olmesartan) ..... Take 1 tablet by mouth every day Metformin 500 Mg Tablet (Metformin) ..... Take 1 tablet by mouth every day [facility] [id number],C,T he patient is using CPAP on a regular basis. The patient has been benefiting from therapy and should continue use. [facility] [id number],C, H is updated medication list for this problem includes: Rosuvastatin 20 Mg Tablet (Rosuvastatin) ..... Take 1 tablet by mouth daily [facility] [id number],C,c ontinues to persist m ay be r/t [...] 1 tablet by mouth daily Cece Sanders [facility] [id number],C,B P elevated again today R eports well controlled at PCP visit last week H ave asked him to monitor at home G oal BP <130/80 W ill return in 3 mos or sooner if needed. Cece Sanders [facility] [id number],C,P atient does not feel like his CPAP is working correctly, will give him Dr. Smith's phone number Abdiaziz Arias MD [id number],C, B P today: 161/91 P rior BP: 161/97 (02/21/2023) Labs Reviewed: C reat: 1.06 (12/28/2022) C hol: 179 (12/28/2022) HDL: 47 (12/28/2022) LDL: 93 MG/DL (CALC) (12/28/2022) T (12/28/2022) Abdiaziz Arias MD [id number],C,Patient feels SOB Abdiaziz Arias MD [id number],B, Abdiaziz Arias MD [id number],C, B P today: 161/97 P rior BP: [...] by mouth twice daily Abdiaziz Arias MD [id number],C,a s in hpi h as minimal disease and should conitnue statin Abdiaziz Arias MD [id number],S, H is updated medication list for this problem includes: Albuterol Sulfate 90 Mcg/actuation Hfa Aerosol Inhaler (Albuterol sulfate) ..... Inhale 2 puffs by mouth every 4 hours as needed Trelegy Ellipta 100-62.5-25 Mcg Blister With Device (Xpzmuimjblw-dgvcrzntp-hzyeclez) ..... Inhale 1 puff by mouth every day Abdiaziz Arias MD [id number],C, B P today: 163/102 His updated medication list for this problem includes: Clonidine Hcl 0.1 Mg Tablet (Clonidine hcl) ..... Take 1 tablet by mouth twice daily Amlodipine-benazepril 10-20 Mg Capsule (Amlodipine-benazepril) ..... Take 1 capsule by mouth every day Losartan 25 Mg Tablet (Losartan) ..... Take 1 tablet by mouth every day Abdiaziz Arias MD [id number],S, Abdiaziz Arias MD [id number],C,Have recommen ded a cardiac cath Abdiaziz Arias [...] tablet by mouth every day Ceceyanique Sanders [facility] Cardiology:The patie nt is using CPAP on a regular basis. The patient has been benefiting from therapy and should continue use. Ceceyanique Sanders [facility] Cardiology: H is updated medication list for this problem includes: Rosuvastatin 20 Mg Tablet (Rosuvastatin) ..... Take 1 tablet by mouth daily Cece Sanders [facility] Cardiology:continues to persist m ay be r/t [...] 1 tablet by mouth daily Cece Marilyn [facility] Cardiology:BP elevat ed again today R eports well controlled at PCP visit last week H ave asked him to monitor at home G oal BP <130/80 W ill return in 3 mos or sooner if needed. Cece Sanders [facility] Cardiology:Patient d oes not feel like his [...] Trelegy Ellipta 100-62.5-25 Mcg Blister With Device (Jcnaetxokww-duudazeoo-ynyzjufh) ..... Inhale 1 puff by mouth every [...]
--- OUTSIDE RECORDS SUMMARY | 2024-12-19 13:56 | XMS_ITS | Data Portability ---
Author Organization [facility], Main Office Address [address] [place] [address] Care Team Providers Care Pmp Project Manager Name Role Phone DEBORAH MOBLEY Primary Care Provider [phone] Assessment Encounter Date Assessment Date Assessment LastModified by Organization Details LastModified Time 10/26/2022 10/26/2022 Blood pressure u p a little bit has not taking his medication blood work been ordered 2 week follow-up eat better take medications medications as prescribed stress test if chest pain recurs ER Not available 10/26/2022 17:08:11 06/12/2023 06/12/2023 Blood [...] PSA, total, serum or plasma 2022 023 [email or web address] [facility] (Lab), [address] [place], [address], 05/07/2024 18:37:49 CBC w/ auto diff 2022 023 [email or web address] [facility] (Lab), [address] [place], [address], 05/07/2024 18:37:49 lipid panel, serum [address] (Lab), [address] [place], [address], 05/07/2024 18:37:49 CMP, serum or plasma [address] (Lab), [address] [place], [address], 05/07/2024 18:37:49 glycohemo globin, total, blood [address] (Lab), [address] [place], [address], 05/07/2024 18:37:48 glycohemo globin, total, blood [address] [facility] (Lab), [address] [place], [address], 10/30/2022 12:30:36 CMP, serum or plasma [address] [facility] (Lab), [address] [place], [address], 10/30/2022 12:30:36 lipid panel, serum [address] [facility] (Lab), [address] [place], [address], 10/30/2022 12:30:36 CBC w/ auto diff [address] [facility] (Lab), [address] [place], [address], 10/30/2022 12:30:36 Referral None recorded. Procedures cerumen removal (PROC) 2024 025 [email or web address] 2 [facility] ([facility] Scheduling), [address] [place], [address], 11/27/2024 14:55:00 cerumen removal (PROC) 2023 024 [email or web address] [facility] ([facility] Scheduling), [address] [place], [address], 02/17/2024 11:58:39 lexiscan cardiolit e stress test (PROC) - approved [id number] 10/26/2022 -2022 023 cyl [facility] ([facility] Scheduling), [address] [place], [address], 12/19/2022 09:12:03 Surgeries septoplas ty (SURG) 2024 025 [email or web address] Not available 12/18/2024 12:14:24 Imaging PFT, complete 2022 023 [facility] (Cardiology & Emg), [address], [place], [address], 06/29/2023 07:43:36 XR, chest, 2 view 2022 023 [facility] (One Call Scheduling), [address] [place], [address], 11/01/2022 09:47:37 electroca rdiogram 2022 023 [email or web address] s_[facility] Internal Med [address] [facility], [address], [place], [address], 10/26/2022 14:28:32 Medication Orders azelastin e 137 mcg (0.1 %) nasal spray 2023 024 [id number], [address] , [place], [place], [id number], 10/08/2023 14:29:14 Patient TargetsNo targets recorded. Patient InstructionsNo instructions recorded. Reason for Referral None Reported. Results Created Date Observation Date Name Description Value Unit Range Abnormal Flag Note LastModifiedBy Organization Detail LastModifiedTime 10/27/19 [facility] dio am No observ ation record ed. cyahl [facility] Internal Med [facility] [address] [facility], [place], [address], 10/26/2022 12:35:01 10/27/19 23 10/26/2022 [facility] dio am No observ ation record ed. BARCODE [facility] Internal Med [facility] [address] [facility] [address], [place], [address], 10/26/2022 15:18:43 11/02/19 23 11/01/2022 XR, chest , 2 view [facility] [address] [place] [address] Patien t Name: LETICIA LEWIS L Access ion #: [id number] Sex: M : 1954 9 Locati [...] c proces s. Page 1 of 2 [facility] Patien t Name: LETICIA LEWIS Access ion #: [id number] Sex: M : 1954 9 Exam Date: 7:17 AM Exam Name: XR CHEST 2V Admitt ing Diagno sis(es ): Create d and electr onical ly signed by: Victor M hamilton MD Signed Date: 8:45 AM (CT) Dictat ed by: Victor M hamilton MD DD: 8:45 AM (CT) DT: 8:45 AM (CT) Page [address] of [address] (Imaging) [address] [place], [address], 06/01/2023 21:50:35 11/22/19 23 11/21/2022 [email or web address] can cardi olite stres s test (PROC ) [facility] [address] [place] [address] [phone] Patiparth t Name: LETICIA LEWIS Access ion #: [id number] Sex: M : 1954 5 Locati [...] the same day. Page 1 of 2 [facility] Patien t Name: LETICIA LEWIS L Access ion #: [id number] Sex: M : 1954 5 Exam [...] MD (CT) (CT) Page 2 of 2 [facility] (Imaging) [address] [place], [address], 12/19/2022 09:12:03 06/29/2006/28/2023 PFT, compl ete No observ ation record ed. [facility] [email or web address] [facility] [address], [place], [address], 07/24/2023 11:45:11 07/01/2006/28/2023 PFT, compl ete No observ ation record ed. [email or web address] [facility] [address], [place], [address], 07/24/2023 11:45:11 07/03/2007/03/2023 US, echoc ardio gram No observ ation record ed. cyahl [facility] [address], [place], [address], 07/15/2023 14:50:50 07/29/2006/28/2023 PFT, compl ete No observ ation record ed. [email or web address] [place] [id number] [facility] [address], [place], [address], 08/24/2023 10:56:48 Result Notes None recorded. Problems Name Problem SNOMED Code Status Onset Date Resolution Date Notes Provider Name and Address Organization Details Recorded Time Chest pain 89627006 Active 2022 Not Available [facility] 3 08:18:36 Thallium stress test abnormal 462549640 Active 2022 Not Available [facility] 3 08:18:36 Impacted cerumen of bilateral ears 38757766586 30014 Active 2023 Jossue Spann MD [address] [facility], [place] [address], [place], [address] , [employer] 4 14:28:45 Allergic rhinitis 79322368 Active 2023 Jossue Spann MD [address] [facility], [facility] [address], [place], [address] , [place] [facility] [employer] 4 14:28:55 Deviated nasal septum 416407008 Active 2024 LENARD Moreno [address] [facility], [facility] [address], [place], [address] , [employer] [facility] [employer] 5 11:15:49 Hypokalem ia 66809513 Active 2024 Evita Ji RN null, [employer] 5 11:45:59 Tobacco user 715984379 Active Not Available [facility] 3 08:18:36 Chronic obstructi ve pulmonary disease 86335206 Active Not Available [facility] 3 08:18:36 Respirato ry symptom 572215325 Active Not Available [facility] 3 08:18:36 On examinati on - hoarsenes s Completed Not Available [facility] 3 04:50:23 Prostate specific antigen outside reference range 967543752 Active Not Available [facility] 3 08:18:36 Blood glucose outside reference range 131108940 Active Not Available [facility] 3 08:18:36 Malaise and fatigue 083613094 Completed Not Available [facility] 3 04:50:23 Chest pain 73374968 Completed LEIGHANN Gilbert null, [employer] 3 12:35:41 Type 2 diabetes mellitus without complicat ion 205627523 Active 2021 Not Available [facility] 3 08:18:36 Dyslipide alexis 638241443 Active Not Available [facility] 3 08:18:36 Hypokalem ia 42984192 Completed Evita Ji RN null, [employer] [facility] 5 11:45:59 Anxiety 29836618 Active 2019 Not Available [facility] 3 08:18:36 Cough 18421461 Completed Not Available [facility] 3 04:50:24 Hoarse 82556800 Completed Not Available [facility] 3 04:50:24 Essential hypertens ion 97039737 Active Not Available [facility] 3 08:18:36 Snoring 77320773 Active Not Available [facility] 3 08:18:36 Sleep apnea 80403529 Active Not Available [facility] 3 08:18:36 Problem Notes None recorded. Procedures Surgical History Date Name Laterality Status Provider Name and Address Organization Details Recorded Time Vasectomy completed Not Available [place] [address] 10/17/2022 04:42:01 Imaging Results Imaging Date Name Status LastModified by Organization Details LastModified Time 10/26/2022 electrocardiogram completed [facility] [address], [place], [address], 10/26/2022 12:35:01 10/26/2022 electrocardiogram completed [facility] [address], [place], [address], 10/26/2022 15:18:43 11/01/2022 XR, chest, 2 view completed [address] (Imaging) [address] [place], [address], 06/01/2023 21:50:35 11/21/2022 lexiscan cardiolite stress test (PROC) completed [facility] (Imaging) [address] [place], [address], 12/19/2022 09:12:03 06/28/2023 PFT, complete completed [email or web address] [place] [address], [address], 07/24/2023 11:45:11 06/28/2023 PFT, complete completed [email or web address] [facility] [address], [place], [address], 07/24/2023 11:45:11 07/03/2023 US, echocardiogram completed [facility] [address], [place], [address], 07/15/2023 14:50:50 06/28/2023 PFT, complete completed [address], [address], 08/24/2023 10:56:48 Procedure Notes None recorded. Medical [...] Updated DateTime 3 162.56 cm 32.4 kg/m2 20248.9 6 g 97.5 [degF] 78 /min 160 mm[Hg] 98 mm[Hg] Shae Valderrama Ana Cristina [place] [employer] [facility] [employer] [facility] 3 12:07:16 Date Recorded Body height Body mass index (BMI) Body weight Body temperature Heart rate Systolic blood pressure Diastolic blood pressure Provider Name and Address Organization Details Last Updated DateTime 3 162.56 cm 30.2 kg/m2 09591.2 6 g 98.7 [degF] 68 /min 120 mm[Hg] 82 mm[Hg] LEIGHANN Ventura [employer] [employer] [facility] 3 11:45:07 Date Recorded Body height Body mass index (BMI) Body weight Body temperature Provider Name and Address Organization Details Last Updated DateTime 10/08/2023 162.56 cm 29.7 kg/m2 73166.2 g 97.7 [degF] Evita Ji RN [facility] 10/08/2023 14:05:54 Date Recorded Body height Body mass index (BMI) Body weight Body temperature Body height Body mass index (BMI) Body weight Body temperature Provider Name and Address Organization Details Last Updated DateTime 5 162.56 cm 29.7 kg/m2 71827.4 8 g 97.5 [degF] 162.56 cm 29.7 kg/m2 02001.4 8 g 97.5 [degF] Evita Ji RN [facility] 5 12:27:54 Social History Question Answer Notes LastModified by Organization Details LastModified Time Tobacco Smoking Status Former Smoker quit 2013 ELSI Beaulieu [place] [employer] [facility] 10/08/2023 13:58:09 Do You Have An Advance Directive? No [id number] Information not available 10/17/2022 What Is Your Level Of Alcohol Consumption? Occasional MIGRATION.0301 [id number] Information not available 10/17/2022 Are You Blind Or Do You Have Difficulty Seeing? No Information not available 10/08/2023 What Is Your Level Of Caffeine Consumption? Heavy MIGRATION.0301 [id number] Information not available 10/17/2022 How Much Tobacco Do You Chew? None MIGRATION.0301 [id number] Information not available 10/17/2022 In The 14 [...] Of Diet Are You Following? REGULAR MIGRATION.0301 [id number] Information not available 10/17/2022 Which Illicit Or Recreational Drugs Have You Used? None Information not available 10/08/2023 Do You Or Have You Ever Used E-cigarettes Or Vape? Never Used Electronic Cigarettes Information not available 10/08/2023 What Is The Highest Grade Or Level Of School You Have Completed Or The Highest Degree You Have Received? [id number] Information not available 10/08/2023 What Is Your [...] Do You Have A Medical Power Of Digester Operator? No Information not available 10/08/2023 What Was The Date Of Your Most Recent Tobacco Screening? 06/12/2023 Information not available 10/08/2023 Have You Ever Been Counseled For Unhealthy Alcohol Use? No Information not available 10/08/2023 Do You Have Any Pets? Yes Information not available 10/08/2023 What Is Your Relationship Status? MIGRATION.0301 [id number] Information not available 10/17/2022 Do You Use [...] Smokeless Tobacco? Never Used Smokeless Tobacco MIGRATION.0301 777653 Information not available 10/17/2022 Are There Any Smokers In Your House? No Information not available 10/08/2023 How Much Tobacco Do You Smoke? No Was 1ppw MIGRATION.0301 349606 Information not available 10/17/2022 What Types Of Sporting Activities Do You Participate In? None Information not available 10/08/2023 Do You Feel Stressed (tense, Restless, Nervous, Or Anxious, Or Unable To Sleep At Night)? [id number] Information not available 10/08/2023 Do You Use [...] 10/08/2023 What is your exercise level? None [id number].[id number] Information not available 10/17/2022 Mental Status Question Answer Note LastModified by Organization D etails LastModified Time Do you have difficulty concentrating, remembering or making decisions? Yes Information no t available 10/08/2023 Family History Relationship Description Onset Age of this Age Resolved Age Notes LastModified by Organization Details LastModified Time Mother History of respiratory disease [id number].136 [id number] Not available 10/17/2022 04:42:02 Father Malignant neoplasm of lung MIGRATION.707 [id number] Not available 10/17/2022 04:42:02 Notes:YOUNGER BROTHER WAS [...] HEARING PROBLEMS N MUMPS N SHINGLES N DEPRESSION (INCLUDING POST ) N BOWEL PROBLEMS N STROKE/TIA N ULCERS N BENIGN PROSTATIC [...] HAVE YOU BEEN HOSPITALIZED OR SEEN IN [facility] ER IN THE PAST YEAR ? [...] preservative 3 completed Not Available [facility] 01/17/2023 08:18:36 Influenza, split virus, trivalent, preservative 3 completed Not Available [facility] 01/17/2023 08:18:36 Influenza, high-dose, quadrivalent, PF 2 completed Not Available [facility] 01/17/2023 08:18:36 Influenza, high-dose, quadrivalent, PF 0 completed Not Available [facility] 01/17/2023 08:18:36 Influenza, high-dose, trivalent, PF 9 completed Not Available [facility] 01/17/2023 08:18:36 Influenza, split virus, quadrivalent, PF 8 completed Not Available [facility] 01/17/2023 08:18:36 Influenza, split virus, quadrivalent, PF 6 completed Not Available [facility] 01/17/2023 08:18:36 Influenza, split virus, quadrivalent, PF 8 completed Not Available [facility] 01/17/2023 08:18:36 Influenza, split virus, quadrivalent, PF 5 completed Not Available [facility] 01/17/2023 08:18:36 Influenza, split virus, trivalent, preservative 4 completed Not Available [facility] 01/17/2023 08:18:36 Influenza, high-dose, quadrivalent, PF 3 completed Deborah Mobley MD [address] [facility], [address], [place], [address], [facility] 06/15/2023 16:24:17 Past Encounters Encounter ID Performer Location Encounter Start Date Encounter Closed Date Diagnosis/Indication Diagnosis SNOMED-CT Code Diagnosis ICD10 Code Diagnosis Note [id number] Deborah Mobley MD [facility] Internal Med [facility] [address] [facility] [address] [place] [address] 12/30/2020 00:00:00 01/01/2021 09:26:30 [id number] Deborah Mobley MD [facility] Internal Med [facility] [address] [address] 05/05/2021 00:00:00 05/06/2021 11:41:52 [id number] [facility] ic[facility] _ATHENA_M IGRATION_ DEFAULT_1 _1 , 08/16/2021 00:00:00 08/16/2021 10:31:32 [id number] [facility] _ATHENA_M IGRATION_ DEFAULT_1 _1 , 08/30/2021 00:00:00 08/30/2021 10:20:11 [id number] Deborah Mobley MD [facility] Internal Med [facility] [address] [facility] [address] [place] [address] 10/27/2021 00:00:00 11/12/2021 22:07:07 [id number] Deborah Mobley MD [facility] Internal Med [facility] [address] [address] 04/25/2022 00:00:00 05/27/2022 18:06:16 [id number] Deborah Mobley MD [facility] [address] [facility] [address] [address] 07/11/2022 00:00:00 07/12/2022 13:15:59 [id number] Deborah Mobley MD [facility] [address] [address] 07/18/2022 00:00:00 08/05/2022 16:26:55 [id number] Deborah Mobley MD [facility] Internal Med [facility] [address] [address] 08/01/2022 00:00:00 08/05/2022 12:09:53 [id number] Deborah Mobley MD [facility] Internal Med [facility] [address] [address] 10/26/2022 11:46:33 10/26/2022 13:08:36 Essential hypertension 07044554 I10 Chest pain 66397304 R07. 9 Type 2 jaydon betes mellitus without complication 824987793 E11.9 Anxiety 12818172 F41.9 Dyslipidemia 540224943 E 78.5 [id number] Deborah Mobley MD [facility] Internal Med [facility] [address] [address] 06/12/2023 11:21:26 06/12/2023 12:25:33 Type 2 diabetes mellitus without complication 306296791 E11.9 Essential hypertension 11561750 I10 Screening for malignant neoplasm of prostate 248782565 Z12.5 Chronic ob structive pulmonary disease 95239603 J44.9 Administra tion of influenza vaccine 90739324 Z23 [id number] Jossue Spann MD [facility] ENT [place] [address] [place] [address] 10/08/2023 13:56:19 10/08/2023 16:13:18 Impacted cerumen of bilateral ears 0134976534 737612 H61.23 Allergic rhinitis 704323 04 J30.9 [id number] Jossue Spann MD [facility] [place] [address] [place] [address] 10/22/2024 10:44:03 10/22/2024 11:18:48 Deviated nasal septum 850340840 J34.[address] Spann for a septoplast y consultati on Impacted c erumen of bilateral ears 2754015189 566488 H61.23 cerumen impaction successful ly removed with irrigation [id number] Jossue Spann MD [facility] [place] [address] [place] [address] 10/22/2024 12:08:18 10/23/2024 08:55:00 Deviated nasal septum 682057034 J34.2 Health Concerns Section Related Observation LastModified by Organization Detai ls LastModified Time None Recorded Concern Status LastModified by Organization Details LastModified Time None Recorded Advance Directives Directive N: Payers Encounter Date Sequence Insurance Name Policy Number Policy Walton Covered Member ID Walton Member ID Guarantor Name 10/26/2022 1 [employer] 680 Sami L Borror [id number] Sami L Borror 06/12/2023 1 [employer] 680 Sami L Borror [id number] Sami L Borror 10/08/2023 1 [employer] 680 Sami L Borror [id number] Sami L Borror 10/22/2024 1 [employer] 680 Sami L Borror [id number] Sami L Borror 10/22/2024 1 [employer] 680 Sami L Borror [id number] Sami L Borror Notes Date Note Type [...] poor Deborah Mobley MD [address] [employer], [place], [address], [employer] [facility] 10/26/2022 17:08:33 06/12/2023 text/html COPD stable need s PFTs. Hypertension no headache no dizziness diabetes no polyphagia no polydipsia dyslipidemia does try to follow a low-fat Deborah Mobley MD [address] [employer], [place], [address], [employer] [facility] 06/15/2023 16:24:20 10/08/2023 text/html Cerumen and nasa l congestion Jossue Spann MD [address], [place], [address], [employer] 10/08/2023 14:29:42 10/22/2024 text/html This patient has a past medical history significant for type 2 diabetes, dyslipidemia, COPD, anxiety, HTN, allergic rhinitis, sleep apnea, and cerumen impaction who presents to the office for a 1 year follow-up for cerumen removal. Reports approximately 1 month ago he developed difficulty hearing from his left ear. Denies use of any ymiu-hls-jgyjdod ear wax removal kit. Denies any otalgia. [...] a septoplasty. LENARD Moreno [address], [place], [address], [employer] 10/22/2024 11:16:59 10/22/2024 text/html this patient was found to have septal deviation which interferes with his sleep and daily breathing Jossue Spann MD [address], [place], [address], [employer] 10/22/2024 12:59:19
== END 2024-12-18 13:27 | disposition home or self-care (01) ==
LOC: ANHLAB 13:28
PROVIDERS: PCP Internal Medicine; Visit Provider Otolaryngology
DX: E87.6 Hypokalemia (principal)
CPT/HCPCS: 36415; 84132